=== PATIENT | female | born 1960 | race Caucasian/White ===

== ENCOUNTER 2018-04-09 01:41 | Inpatient (IN) ==
[2018-04-09] MEDS ORDERED: *HR* OxyCODONE/APAP 5/325 TABLET PO ONE (03:01)
[2018-04-09 03:43] LABS: Basophils # 0.1 K/mcL (0.0-0.2); Basophils % 0.6 %; Eosinophils # 0.1 K/mcL (0.0-0.6); Eosinophils % 0.8 %; Hematocrit 37.4 % (35.3-44.9); Hemoglobin 12.3 g/dL (11.5-15.4); Immature Granulocytes % 0.8 % (0-4); Lymphocytes # 0.7 K/mcL (0.6-4.6); Lymphocytes % 6.4 %; Mean Corpuscular HGB Conc 32.9 g/dL (31.6-35.5); Mean Corpuscular Hemoglobin 31.9 pg (28.0-33.3); Mean Corpuscular Volume 96.9 fL (83.0-100.0); Mean Platelet Volume 10.8 fL (9.4-12.4); Monocytes # 0.7 K/mcL (0.0-1.3); Monocytes % 5.7 %; Neutrophils # 9.9 K/mcL (1.6-8.9); Platelet Count 179 K/mcL (140-400); Red Blood Count 3.86 M/mcL (3.82-4.97); Red Cell Distribution Width 14.6 % (11.5-14.5); Segmented Neutrophils % 85.7 %
--- NOTE | 2018-04-09 04:00 | Emergency Department Note ---
Disposition Clinical Impression: Frequent falls Femoral fracture Qualifiers: Encounter type: initial encounter Femur location: shaft Fracture type: closed Fracture morphology: comminuted Fracture alignment: displaced Laterality: right Qualified Code(s): S72.351A - Displaced comminuted fracture of shaft of right femur, initial encounter for closed fracture Disposition: Admitted As Inpatient Condition: Fair Fall HPI - General Chief Complaint: ED Fall Stated Complaint: fall right leg right knee pain Time Seen by Provider: 04/09/18 02:06 Source: patient, EMS Mode of arrival: EMS Limitations: no limitations Nursing Notes Reviewed: Yes Vital Signs Reviewed: Yes - History of Present Illness HPI Narrative: 57 year old female sent by ambulance for fall evaluation. pt was tripped and fell on her right knee from standing five hours ago. pt couldn't stand up or change the position ever since. She stayed on the floor for four hours before she got help. Pt complained of severe right knee and hip pain. Pt stated she couldn't move her right leg. Pt reported history of diabetes, obese, depression , fibromygia and frequently fall. Pt denied hit her head or loss of consciousness at this time. Not on blood thinner. Pt Subjective Complaint: fall Onset (ago): hour(s) (5) Fall From: standing Fall Witnessed: no Place Fall Occurred: home Loss of Consciousness: none Prolonged Down Time?: yes, hour(s) (4) Symptoms Prior to Fall: none Context: tripped/slipped Location of injury - extremities: Right: hip, knee Severity: severe Severity scale (1-10): 9 - Related Data Allergies Allergy/AdvReac Type Severity Reaction Status Date / Time Nefazodone [From Serzone] Allergy Rash Verified 12/09/16 14:49 Constitutional: Denies: fever, chills, weakness, weight change Eyes: Denies: eye pain, eye discharge, vision change ENT ED: Denies: ear pain, throat pain, dental pain, hearing loss, epistaxis, congestion, dysphagia Cardiovascular: Denies: chest pain, palpitations, dyspnea on exertion, edema, syncope Respiratory: Denies: cough, dyspnea, wheezes, hemoptysis, stridor Gastrointestinal: Denies: abdominal pain, nausea, vomiting, diarrhea, constipation, hematemesis, melena, hematochezia Genitourinary: Denies: dysuria, frequency, hematuria, discharge Musculoskeletal: Reports: arthralgia (right knee pain and right hip pain). Denies: back pain, neck pain, myalgia Integumentary: Denies: rash, abrasion, lesions Neurological: Denies: headache, weakness, numbness, paresthesias, confusion, abnormal gait, vertigo Psychiatric: Denies: anxiety, depression, suicidal thoughts, homicidal thoughts , auditory hallucinations, visual hallucinations Endocrine: Denies: fatigue Hematological/Lymphatic: Denies: easy bleeding, easy bruising Allergic/Immunologic: Denies: facial swelling, urticaria Fall PMH - Past Medical History Medical history: Reports: asthma, COPD, diabetes, fibromyalgia, hypertension, other Surgical history: Reports: appendectomy Psychiatric history: Reports: anxiety, depression - Social History Smoking Status: Former smoker Alcohol use: Reports: none Drug use: Reports: none Physical Exam - General Limitations: no limitations General appearance: alert, in no apparent distress - Head Head exam: atraumatic, normocephalic, normal inspection - Eye Eye exam: Present: normal appearance, PERRL, EOMI - ENT ENT exam: normal exam, normal oropharynx, mucous membranes moist - Neck Neck exam: Present: normal inspection, full ROM, trachea midline - Chest Chest inspection: Present: normal inspection, symmetric chest wall rise - Respiratory Respiratory exam: Present: normal lung sounds bilaterally - Cardiovascular Cardiovascular exam: Present: regular rate, normal rhythm, normal heart sounds - Abdominal Exam Abdominal exam: Present: soft, Non-Tender. Absent: tenderness, distention, guarding, rebound, rigidity - Extremities Exam Extremities exam: Present: tenderness. Absent: pedal edema - Expanded Lower Extremity Exam Hip/Pelvis exam: Present: normal inspection, tenderness. Absent: full ROM, swelling Knee exam: Present: tenderness, swelling (right leg shorter than left knee, right knee swelling, limited of ROM, tender to palpation. right hip tender to palpation, no neurovascular deficit in right foot). Absent: normal inspection, full ROM Neurovascular/Tendon exam: Present: normal capillary refill. Absent: pulse deficit, motor deficit, sensory deficit, tendon deficit - Back Exam Back exam: Present: normal inspection, full ROM. Absent: tenderness - Neurological Exam Neurological exam: Present: alert, oriented X3 - Psychiatric Psychiatric exam: Present: normal affect, normal mood Course Vital Signs Temperature 99.0 F 04/09/18 01:46 Pulse Rate 77 04/09/18 01:46 Respiratory Rate 20 04/09/18 01:46 Blood Pressure 164/78 04/09/18 01:46 O2 Sat by Pulse Oximetry 100 04/09/18 01:46 Temperature 98.7 F 04/09/18 06:56 Pulse Rate 81 04/09/18 06:56 Respiratory Rate 16 04/09/18 06:56 Blood Pressure 130/75 04/09/18 06:56 O2 Sat by Pulse Oximetry 100 04/09/18 06:56 Oxygen Delivery Oxygen Delivery Room Air Fall - [facility] Narrative Medical decision making narrative: 57 year old female with history of frequently fall 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 pt stayed on the floor for 4 hours before got help. Physical exam: right knee deformity, right leg shorter than left leg, right knee swelling, limited of ROM, tender to palpation; lateral side right hip tender to palpation. no neurovascular deficit on right foot. Xray indicated distal femoral fracture with displaced. No hip or pelvic frature. Negative chest xray. Spoke with Dr. Silva. He suggested to admit the patient to hospital , and he will see the pt in the morning. Pt will be admitted with NPO. Dr. Pittman saw the patient and agrees the above plan. Spoke with Dr. Whitehead in the phone, pt is accepted. - Lab Data Result diagrams: 04/09/18 03:32 04/09/18 03:32 Lab Results 04/09/18 04/09/18 04/09/18 Range/Units 03:32 03:32 04:02 WBC 11.5 H (4.3-11.1) K/mcL RBC 3.86 (3.82-4.97) M/mcL Hgb 12.3 (11.5-15.4) g/dL Hct 37.4 (35.3-44.9) % MCV 96.9 (83.0-100.0) fL MCH 31.9 (28.0-33.3) pg MCHC 32.9 (31.6-35.5) g/dL RDW 14.6 H (11.5-14.5) % Plt Count 179 (140-400) K/mcL MPV 10.8 (9.4-12.4) fL Immature Gran % 0.8 (0-4) % Seg Neutrophils % 85.7 % Lymphocytes % 6.4 % Monocytes % 5.7 % Eosinophils % 0.8 % Basophils % 0.6 % Neutrophils # 9.9 H (1.6-8.9) K/mcL Lymphocytes # 0.7 (0.6-4.6) K/mcL Monocytes # 0.7 (0.0-1.3) K/mcL Eosinophils # 0.1 (0.0-0.6) K/mcL Basophils # 0.1 (0.0-0.2) K/mcL Sodium 139 (136-145) mEq/L Potassium 4.2 (3.5-5.1) mEq/L Chloride 111 H (98-107) mEq/L Carbon Dioxide 22 L (23-29) mEq/L BUN 31 H (6-20) mg/dL Creatinine 1.00 (0.60-1.20) mg/dL Est GFR ( Amer) > 60 (> 60) Est GFR (Non-Af Amer) 57 L (> 60) BUN/Creatinine Ratio 31 H (6-26) Glucose 161 H (70-105) mg/dL Calculated Osmolality 298 (280-300) Calcium 8.9 (8.6-10.3) mg/dL Total Bilirubin 0.4 (0.3-1.0) mg/dL AST 15 (13-39) Units/L ALT 11 (7-52) Units/L Alkaline Phosphatase 73 (34-104) Units/L Creatine Kinase 174 (30-223) Units/L Serum Total Protein 7.4 (6.4-8.9) g/dL Albumin 4.0 (3.5-5.7) g/dL Globulin 3.4 (2.4-3.5) g/dL Albumin/Globulin Ratio 1.2 (1.1-2.2) Urine Color Yellow (Yellow) Urine Clarity Clear (Clear) Urine pH 7.0 (5.0-8.0) pH Units Ur Specific [place] 1.018 (1.010-1.025) Urine Protein Negative (Neg-Trace) mg/dL Urine Glucose (UA) Normal (Normal) mg/dL Urine Ketones Negative (Negative) mg/dL Urine Blood Negative (Negative) Urine Nitrite Negative (Negative) Urine Bilirubin Negative (Negative) Urine Urobilinogen Normal (Normal) mg/dL Ur Leukocyte Esterase Small H (Negative) Urine Microscopic RBC 0-3 (0-3) per hpf Urine Microscopic WBC 5-15 H (0-3) per hpf Ur Squamous Epith Cells Many H (None-Few) per lpf Urine Bacteria None Seen (None-Few) per hpf Hyaline Casts None Seen (None-Few) per lpf Ur Culture Indicated? NO. A (NO) - Radiology Data Radiology results reviewed: Yes I reviewed the patient's radiology results. FINDINGS: Comminuted displaced distal femoral metadiaphyseal fracture with overlapping segments. Osteoarthrosis of the knee. Generalized soft tissue prominence about the leg. XR/XR knee RT limited 1-2V IMPRESSION: Comminuted displaced distal femoral metadiaphyseal fracture. Tricompartmental osteoarthrosis. D/ / Eduardo Henriquez / Eduardo Henriquze Interpreting Provider: Eduardo Henriquez - EKG Data EKG attestation: Yes I reviewed and interpreted this EKG. EKG shows normal: sinus rhythm Rate: normal Voltage: decreased voltage throughout Interpretation: no acute changes
[2018-04-09 04:09] LABS: Alanine Aminotransferase 11 Units/L (7-52); Albumin/Globulin Ratio 1.2 (1.1-2.2); Alkaline Phosphatase 73 Units/L (34-104); Aspartate Amino Transferase 15 Units/L (13-39); BUN/Creatinine Ratio 31 (6-26); Bilirubin,Total 0.4 mg/dL (0.3-1.0); Blood Urea Nitrogen 31 mg/dL (6-20); Calcium 8.9 mg/dL (8.6-10.3); Carbon Dioxide 22 mEq/L (23-29); Chloride 111 mEq/L (98-107); Creatine Kinase 174 Units/L (30-223); Globulin 3.4 g/dL (2.4-3.5); Glucose 161 mg/dL (70-105); Osmolality,Calculated 298 (280-300); Potassium 4.2 mEq/L (3.5-5.1); Sodium 139 mEq/L (136-145); Total Protein 7.4 g/dL (6.4-8.9); eGFR For Non-African Americans 57 (> 60)
[2018-04-09 04:15] LABS: Bilirubin,Urine Negative (Negative); Blood,Urine Negative (Negative); Clarity,Urine Clear (Clear); Color,Urine Yellow (Yellow); Glucose,Urine (UA) Normal (Normal); Ketones,Urine Negative (Negative); Leukocyte Esterase,Urine Small (Negative); Nitrite,Urine Negative (Negative); Protein,Urine Negative (Neg-Trace); Specific Gravity,Urine 1.018 (1.010-1.025); Urobilinogen,Urine Normal (Normal)
[2018-04-09 04:16] LABS: Bacteria,Urine None Seen per hpf (None-Few); Hyaline Casts,Urine None Seen per lpf (None-Few); RBC,Urine 0-3 per hpf (0-3); Squamous Epithelial Cell,Urine Many per lpf (None-Few)
[2018-04-09] MEDS ORDERED: OXYCODONE Oral CONC 10 MG/0.5 ML ORAL.SYG SL PRN (05:37)
[2018-04-09] MEDS ORDERED: Naloxone 0.4 MG/ML INJ IVP PRN (05:37)
[2018-04-09] MEDS ORDERED: Dextrose Gel 15 GM/37.5 ML TUBE PO PRN ×2 (05:39)
[2018-04-09] MEDS ORDERED: *HR* Dextrose 50 % in Water (Syg) 50 ML SYRINGE IVP PRN (05:39)
[2018-04-09] MEDS ORDERED: D5% in Water 1,000 ML IVC PRN (05:39)
--- NOTE | 2018-04-09 05:44 | Internal Med History&Physical ---
<Thomas Russo - Last Filed: 04/09/18 05:41> Date of Encounter: 04/09/18 Time of Encounter: 05:41 Internal Medicine - H&P: HPI Chief complaint: fall Admitted From: Home Plans for Post Hospital Care: Transfer [facility] History of present illness: Ms. Lula Villafana is a 57 year old female presented chief complaint of fall. Patient was walking towards her living room from the kitchen, feeding her cats, when she tripped and fell on her right knee recently resulted in severe pain in her right hip and knee. Patient denied passing out, head trauma, presyncope, dizziness. She reports after she fell she cannot get herself to get back up because of the pain she also cannot crawl. Patient was down on the ground for 4 hours. During this time patient did have her cell phone on her but thought that they might have been broken secondary to the fall. However when she checked her problem actually worked and she called for help. Patient was found to have a comminuted displaced distal femoral metadiaphyseal fracture. Orthopedics was called and will see patient in morning. Patient has a history of falls but has never had a fracture in the past. She usually uses a walker/ wheelchair outside or cane at home. Past Med Surg Social Fam HX - Past Medical History Medical history: asthma, COPD, diabetes, fibromyalgia, hypertension, other Psychiatric history: anxiety, depression - Past Surgical History Surgical History: appendectomy - Social History Smoking Status: Former smoker Smokeless Tobacco Status: No Alcohol use: none Drug use: none - Family History Father Hx Family Endocrine Disorder: Yes Internal Medicine - H&P: Meds 3 Allergy/AdvReac Type Severity Reaction Status Date / Time Nefazodone [From Serzone] Allergy Rash Verified 12/09/16 14:49 All Systems PM: A 10-system review of systems was performed and is negative for pertinent findings except as documented above in the HPI. Review of systems: Constitutional: Denies fever, chills HEENT: Denies headache, trauma, blurry vision, eye discharge, ear pain, ear discharge neck pain, sore throat, rhinorrhea Heart: Denies chest pain palpitations, LE edema Lungs: Denies shortness of breath cough Abdomen: Denies abdominal pain nausea vomiting diarrhea MSK: Reports fall, right knee, right hip pain Kidney: Denies dysuria, hematuria Skin: Denies rash, ulcers Neuro: Denies numbness and tingling Psych: denies axniety, depression - Constitutional Vitals: Temp Pulse Resp BP Pulse Ox 99.0 F 77 14 140/59 100 04/09/18 01:46 04/09/18 01:46 04/09/18 04:43 04/09/18 04:43 04/09/18 01:46 Exam: General: pleasant, without distress HEENT: Head atraumatic, normocephalic, EOMI, PERRL, absent ear discharge or trauma, Moist Mucous Membranes, uvula midline Neck: nontender to palpation, absent lymphadenopathy, Cardiovascualr: Regular rate and rhythm with no murmur, absent gallops or rubs, bilateral 1+ pedal edema, radial pulses 2 out of 4 Lungs: Clear to auscultation bilaterally, not in respiratory distress Abdomen: Soft nontender, nondistended positive bowel sounds, absent hepatomegaly Skin: warm and dry, absent rash, absent open wounds and nodules MSK: Right lower extremity externally rotated, short. pain with palpation of right knee. absent joint swelling. Neuro: Cranial nerves II through XII intact, UE and LE sensation equal bilaterally, alert oriented 3, Psych: good insight and judgment, anxious, depressed Internal Med - H&P Results - Labs CBC & Chem 7: 04/09/18 03:32 04/09/18 03:32 - Assessment and plan (1) Femoral fracture Current Visit: Yes Status: Acute Assessment and plan: 57 y/o female presents with fall xray knee/hip shows: Comminuted displaced distal femoral metadiaphyseal fracture. chest x-ray negative ortho consulted npo pain control Qualifiers: Encounter type: initial encounter Femur location: shaft Fracture type: closed Fracture morphology: comminuted Fracture alignment: displaced Laterality: right Qualified Code(s): S72.351A - Displaced comminuted fracture of shaft of right femur, initial encounter for closed fracture (2) Diabetes mellitus Current Visit: Yes Status: Chronic Assessment and plan: hx of DM2 non-insulin dependent A1c 5.5 Q6h accuchecks low dose SSI Qualifiers: Diabetes mellitus type: type 2 Diabetes mellitus fitter tacker insulin use: without fitter tacker use Diabetes mellitus complication status: without complication Qualified Code(s): E11.9 - Type 2 diabetes mellitus without complications (3) DVT prophylaxis Current Visit: Yes Status: Acute Assessment and plan: heparin SQ (4) Hx of essential hypertension Current Visit: Yes Status: Acute Assessment and plan: hx of HTN controlled currently meds not reconciled, so this will need to be done before starting home meds - Time Spent With Patient Total time spent is greater than 50% in coordination of care (as documented) at patient's floor/unit and/or counseling patient: <AnilaJerry - Last Filed: 04/09/18 06:49> Date of Encounter: 04/09/18 Internal Medicine - H&P: HPI History of present illness: Ms. Lula Villafana is a 57 year old female All Systems PM: A 10-system review of systems was performed and is negative for pertinent findings except as documented above in the HPI. - Constitutional Vitals: Temp Pulse Resp BP Pulse Ox 99.0 F 77 14 140/59 100 04/09/18 01:46 04/09/18 01:46 04/09/18 04:43 04/09/18 04:43 04/09/18 01:46 Internal Med - H&P Results - Labs CBC & Chem 7: 04/09/18 03:32 04/09/18 03:32 - Assessment and plan (1) Femoral fracture Current Visit: Yes Status: Acute Qualifiers: Encounter type: initial encounter Femur location: shaft Fracture type: closed Fracture morphology: comminuted Fracture alignment: displaced Laterality: right Qualified Code(s): S72.351A - Displaced comminuted fracture of shaft of right femur, initial encounter for closed fracture (2) DVT prophylaxis Current Visit: Yes Status: Acute (3) Diabetes mellitus Current Visit: Yes Status: Chronic Qualifiers: Diabetes mellitus type: type 2 Diabetes mellitus fitter tacker insulin use: without fpc use Diabetes mellitus complication status: without complication Qualified Code(s): E11.9 - Type 2 diabetes mellitus without complications (4) Hx of essential hypertension Current Visit: Yes Status: Acute - Time Spent With Patient Total time spent is greater than 50% in coordination of care (as documented) at patient's floor/unit and/or counseling patient: - Attending Attestation Margaret Villafana is a 57 year old woman who presents after a fall at home and found to have a distal femoral fracture. Vital signs are within normal limits; she remains clinically and hemodynamically stable. Will keep NPO, ensure coags and type/screen are obtained, place orthopedics consult and administer pain control regimen. DVT prophylaxis indicated. Home meds to be resumed once verified. Insulin sliding scale for diabetes control during hospitalization.
[2018-04-09] MEDS ORDERED: Ondansetron ODT 4 MG TAB.RAPDIS SL PRN (06:47)
[2018-04-09] MEDS: Insulin LISPRO 300 UNITS/3 ML VIAL SQ SCH ×3 (07:38→16:27)
[2018-04-09] MEDS: *HR* Heparin 5,000 UNIT/ML VIAL SQ SCH ×3 (07:38→22:10)
--- NOTE | 2018-04-09 08:05 | Emergency Department Note ---
Disposition Clinical Impression: Frequent falls Femoral fracture Qualifiers: Encounter type: initial encounter Femur location: shaft Fracture type: closed Fracture morphology: comminuted Fracture alignment: displaced Laterality: right Qualified Code(s): S72.351A - Displaced comminuted fracture of shaft of right femur, initial encounter for closed fracture Disposition: Admitted As Inpatient Condition: Fair General Adult HPI - General Chief complaint: ED Fall Stated complaint: fall right leg right knee pain Time Seen by Provider: 04/09/18 02:06 Source: patient, EMS Mode of arrival: EMS Limitations: no limitations Nursing Notes Reviewed: Yes Vital Signs Reviewed: Yes - History of Present Illness Pain Scale: 7 - Related Data Allergies Allergy/AdvReac Type Severity Reaction Status Date / Time Nefazodone [From Serzone] Allergy Rash Verified 12/09/16 14:49 Constitutional: Denies: fever, chills, weakness, weight change Eyes: Denies: eye pain, eye discharge, vision change ENT ED: Denies: ear pain, throat pain, dental pain, hearing loss, epistaxis, congestion, dysphagia Cardiovascular: Denies: chest pain, palpitations, dyspnea on exertion, edema, syncope Respiratory: Denies: cough, dyspnea, wheezes, hemoptysis, stridor Gastrointestinal: Denies: abdominal pain, nausea, vomiting, diarrhea, constipation, hematemesis, melena, hematochezia Genitourinary: Denies: dysuria, frequency, hematuria, discharge Musculoskeletal: Reports: arthralgia (right knee pain and right hip pain). Denies: back pain, neck pain, myalgia Integumentary: Denies: rash, abrasion, lesions Neurological: Denies: headache, weakness, numbness, paresthesias, confusion, abnormal gait, vertigo Psychiatric: Denies: anxiety, depression, suicidal thoughts, homicidal thoughts , auditory hallucinations, visual hallucinations Endocrine: Denies: fatigue Hematological/Lymphatic: Denies: easy bleeding, easy bruising Allergic/Immunologic: Denies: facial swelling, urticaria Past Medical History - Past Medical History Medical history: Reports: asthma, COPD, diabetes, fibromyalgia, hypertension, other Surgical history: Reports: appendectomy Psychiatric history: Reports: anxiety, depression - Social History Smoking Status: Former smoker Smokeless Tobacco Status: No Alcohol use: Reports: none Drug use: Reports: none Physical Exam - General Limitations: no limitations General appearance: alert, in no apparent distress Course Vital Signs Temperature 99.0 F 04/09/18 01:46 Pulse Rate 77 04/09/18 01:46 Respiratory Rate 20 04/09/18 01:46 Blood Pressure 164/78 04/09/18 01:46 O2 Sat by Pulse Oximetry 100 04/09/18 01:46 Temperature 98.7 F 04/09/18 06:56 Pulse Rate 81 04/09/18 06:56 Respiratory Rate 16 04/09/18 06:56 Blood Pressure 130/75 04/09/18 06:56 O2 Sat by Pulse Oximetry 100 04/09/18 06:56 Oxygen Delivery Oxygen Delivery Room Air Medical Decision Making - Lab Data Lab results reviewed: Yes I reviewed the patient's lab results. Result diagrams: 04/09/18 03:32 04/09/18 03:32 Lab Results 04/09/18 04/09/18 04/09/18 Range/Units 03:32 03:32 04:02 WBC 11.5 H (4.3-11.1) K/mcL RBC 3.86 (3.82-4.97) M/mcL Hgb 12.3 (11.5-15.4) g/dL Hct 37.4 (35.3-44.9) % MCV 96.9 (83.0-100.0) fL MCH 31.9 (28.0-33.3) pg MCHC 32.9 (31.6-35.5) g/dL RDW 14.6 H (11.5-14.5) % Plt Count 179 (140-400) K/mcL MPV 10.8 (9.4-12.4) fL Immature Gran % 0.8 (0-4) % Seg Neutrophils % 85.7 % Lymphocytes % 6.4 % Monocytes % 5.7 % Eosinophils % 0.8 % Basophils % 0.6 % Neutrophils # 9.9 H (1.6-8.9) K/mcL Lymphocytes # 0.7 (0.6-4.6) K/mcL Monocytes # 0.7 (0.0-1.3) K/mcL Eosinophils # 0.1 (0.0-0.6) K/mcL Basophils # 0.1 (0.0-0.2) K/mcL Sodium 139 (136-145) mEq/L Potassium 4.2 (3.5-5.1) mEq/L Chloride 111 H (98-107) mEq/L Carbon Dioxide 22 L (23-29) mEq/L BUN 31 H (6-20) mg/dL Creatinine 1.00 (0.60-1.20) mg/dL Est GFR ( Amer) > 60 (> 60) Est GFR (Non-Af Amer) 57 L (> 60) BUN/Creatinine Ratio 31 H (6-26) Glucose 161 H (70-105) mg/dL Calculated Osmolality 298 (280-300) Calcium 8.9 (8.6-10.3) mg/dL Total Bilirubin 0.4 (0.3-1.0) mg/dL AST 15 (13-39) Units/L ALT 11 (7-52) Units/L Alkaline Phosphatase 73 (34-104) Units/L Creatine Kinase 174 (30-223) Units/L Serum Total Protein 7.4 (6.4-8.9) g/dL Albumin 4.0 (3.5-5.7) g/dL Globulin 3.4 (2.4-3.5) g/dL Albumin/Globulin Ratio 1.2 (1.1-2.2) Urine Color Yellow (Yellow) Urine Clarity Clear (Clear) Urine pH 7.0 (5.0-8.0) pH Units Ur Specific [place] 1.018 (1.010-1.025) Urine Protein Negative (Neg-Trace) mg/dL Urine Glucose (UA) Normal (Normal) mg/dL Urine Ketones Negative (Negative) mg/dL Urine Blood Negative (Negative) Urine Nitrite Negative (Negative) Urine Bilirubin Negative (Negative) Urine Urobilinogen Normal (Normal) mg/dL Ur Leukocyte Esterase Small H (Negative) Urine Microscopic RBC 0-3 (0-3) per hpf Urine Microscopic WBC 5-15 H (0-3) per hpf Ur Squamous Epith Cells Many H (None-Few) per lpf Urine Bacteria None Seen (None-Few) per hpf Hyaline Casts None Seen (None-Few) per lpf Ur Culture Indicated? NO. A (NO) - Radiology Data Radiology results reviewed: Yes I reviewed the patient's radiology results. Chest X-Ray 04/09/18 02:27 IMPRESSION: No acute findings. D/ / Eduardo Henriquez / Eduardo Henriquez Interpreting Provider: Eduardo Henriquez Hip X-Ray 04/09/18 02:27 IMPRESSION: No fracture or dislocation of the bilateral hips. Nondiagnostic lateral view due to overlapping structures. D/ / Eduardo Henriquez / Eduardo Henriquez Interpreting Provider: Eduardo Henriquez Knee X-Ray 04/09/18 02:27 IMPRESSION: Comminuted displaced distal femoral metadiaphyseal fracture. Tricompartmental osteoarthrosis. D/ / Eduardo Henriquez / Eduardo Henriquez Interpreting Provider: Eduardo Henriquez Attestation Statement - Attestation Attestation: I, Joshua Pittman MD, personally evaluated this patient and discussed their management with the midlevel provicer, PAC/SENIOR CONTROLLER. I reviewed the midlevel provider 's note and agree with the documented findings, medical decision making, and plan of care. 57-year-old morbidly obese female who lives alone presents to the emergency department by eminence after she lost her balance and fell onto her right knee at home several hours prior to arrival. Patient states she was unable to get up and was in the floor for about 4 hours before she was finally able to call for help. She complains of severe pain in the right knee and entire leg. She denies hitting her head. No loss of consciousness. No syncope. No other symptoms or complaints. On examination patient is a well-developed morbidly obese female in no acute distress. She is alert and oriented 3. There is no cyanosis or diaphoresis. Breath sounds are clear and equal bilaterally. Heart regular rate and rhythm. Abdomen soft and nontender with normal bowel sounds. There is swelling and diffuse tenderness about the right knee with limited range of motion secondary to pain. Neurovascular function intact distally. Labs reviewed. X-ray of the right knee shows a comminuted displaced fracture of the distal femur. Hip and pelvis was negative for fracture. Chest x-ray negative. Antwon Chung CNP, discussed the case with the orthopedist manager document control, Dr. Rutledge, and he will consult on the patient in the morning in the hospital. He recommended admission by the hospitalist. The hospitalist, Dr. Whitehead, was consulted and accepted admission of the patient.
--- NOTE | 2018-04-09 08:15 | Orthopedic Consult Note ---
Date of Encounter: 04/09/18 Time of Encounter: 08:15 Assessment and Plan (1) Femoral fracture Current Visit: Yes Status: Acute Patient has sustained a displaced Right Distal femur fracture from a mechanical fall at home. She lives independently. She admits to frequent falls. Sh uses a walker/cane outside of the home. She is morbidly obese, with peripheral neuropathy from DMII. XRAYS have been reviewed by myself and . Due to instability of fracture, pain, and patients independent status, it is recommended to proceed with surgical intervention. Plan: Right Distal Femur Replacement Thus04/10 with Risks versus benefits reviewed with patient and friend. Consent reviewed and signed. Continue with medical optimization prior to surgery. Start foot pumps. Doppler ordered to assess for DVT. STAT. D/C Heparin in AM. NPO after midnight. Continue with pain control. Will get immobilizer on patient for support and stability. Qualifiers: Encounter type: initial encounter Femur location: shaft Fracture type: closed Fracture morphology: comminuted Fracture alignment: displaced Laterality: right Qualified Code(s): S72.351A - Displaced comminuted fracture of shaft of right femur, initial encounter for closed fracture (2) Frequent falls Current Visit: Yes Status: Acute (3) Hx of essential hypertension Current Visit: Yes Status: Acute (4) Diabetes mellitus Current Visit: Yes Status: Chronic Qualifiers: Diabetes mellitus type: type 2 Diabetes mellitus custodial insulin use: without custodial use Diabetes mellitus complication status: without complication Qualified Code(s): E11.9 - Type 2 diabetes mellitus without complications (5) Non-pressure chronic ulcer of other part of right lower leg limited to breakdown of skin Current Visit: No Status: Acute History of Present Illness Chief complaint: Fall, Right Distal Femur Fracture HPI: Ms. Lula Villafana is a 57 year old female, 57 year old female presented to ED s/ p mechanical fall at home. She lives independently with her cats. Patient was walking towards her living room from the kitchen, feeding her cats, when she tripped and fell on her right knee, resulting in severe pain in her right hip and knee. Patient LOC, head trauma, dizziness or syncope. She reports after she fell she cannot get herself to get back up because of the pain she also cannot crawl. Patient was down on the ground for apprx 4 hours according to reports. Patient was found to have a comminuted displaced distal femoral metadiaphyseal fracture. Orthopedics consulted for surgical management. Patient has a history of multiple falls for unknown reason per patient, and denies previous fracture. She admits to peripheral neuropathy secondary to uncontrolled DM. She is morbidly obese. She usually uses a walker/wheelchair outside or cane at home. She admits to Numbness to bilateral lower extremities x years. She is unable to move knee secondary to discomfort. She admits to mild joint pain prior to surgery. Past Med Surg Social Fam HX - Past Medical History Medical history: asthma, COPD, diabetes, fibromyalgia, hypertension, other Psychiatric history: anxiety, depression - Past Surgical History Surgical History: appendectomy - Social History Smoking Status: Former smoker Smokeless Tobacco Status: No Alcohol use: none Drug use: none - Family History Father Hx Family Endocrine Disorder: Yes Medications and Allergies Albuterol Sulfate [Ventolin Hfa] 2 puff IH Q4H PRN 04/09/18 [History] Allopurinol [Zyloprim] 300 mg PO DAILY 04/09/18 [History] Atorvastatin [Lipitor] 40 mg PO HS 04/09/18 [History] Bimatoprost [Lumigan] 1 drop OP QPM 04/09/18 [History] BuPROPion SR (12 HR) [Wellbutrin SR] 150 mg PO BID 04/09/18 [History] Chlorthalidone 50 mg PO QAM 04/09/18 [History] Cholecalciferol (D-3) [Vitamin D] 5,000 unit PO DAILY 04/09/18 [History] Cyclosporine [Restasis] 1 drop BOTH EYES BID 04/09/18 [History] Fluticasone/Salmeterol [Advair 250-50 Diskus] 1 puff IH BID 04/09/18 [History] HYDROcodone/Acet 7.5/325 mg [[place] 7.5-325 mg] 1 tab PO Q6H PRN 04/09/18 [ History] Levothyroxine Sodium [Levoxyl] 88 mcg PO DAILY 04/09/18 [History] Linaclotide [Linzess] 290 mcg PO DAILY 04/09/18 [History] Metoprolol [Lopressor] 50 mg PO BID 04/09/18 [History] Mirabegron [Myrbetriq] 50 mg PO DAILY 04/09/18 [History] Mirtazapine [Remeron] 15 mg PO HS 04/09/18 [History] Montelukast [Singulair] 10 mg PO DAILY 04/09/18 [History] Nabumetone 750 mg PO BID 04/09/18 [History] Nitroglycerin [Nitrostat] 0.4 mg SL Q5M PRN 04/09/18 [History] Nortriptyline HCl 150 mg PO DAILY 04/09/18 [History] Pantoprazole Sodium [Protonix] 40 mg PO DAILY 04/09/18 [History] Pioglitazone HCl [Actos] 30 mg PO DAILY 04/09/18 [History] Potassium Chloride [Klor-Con 10] 10 meq PO DAILY 04/09/18 [History] Pregabalin [Lyrica] 200 mg PO BID 04/09/18 [History] SUMAtriptan Succinate [Imitrex] 100 mg PO Q2H PRN 04/09/18 [History] SitaGLIPtin [Januvia] 100 mg PO DAILY 04/09/18 [History] Timolol Maleate 0.5% [Timolol Maleate 0.5%] 1 drop OP BID 04/09/18 [History] Tizanidine HCl 8 mg PO TID PRN 04/09/18 [History] Topiramate [Topamax] 200 mg PO BID 04/09/18 [History] hydrOXYzine HCl [Hydroxyzine HCl] 50 mg PO Q8H PRN 04/09/18 [History] rOPINIRole [Requip] 1 mg PO HS 04/09/18 [History] 3 Allergy/AdvReac Type Severity Reaction Status Date / Time Nefazodone [From Serzone] Allergy Rash Verified 12/09/16 14:49 All Systems Reviewed: The remainder of the systems were reviewed and are negative - Constitutional Constitutional: as per HPI, frequent falls, no fever(s), no weakness, no weight gain - Cardiovascular Cardiovascular: no chest pain, no syncope - Respiratory Respiratory: no cough, no dyspnea on exertion - Musculoskeletal Musculoskeletal: as per HPI, abnormal gait, joint swelling, limited range of motion, numbness, radiating pain into limb, tingling Physical Exam - Constitutional Vitals: Temp Pulse Resp BP Pulse Ox 98.7 F 81 16 130/75 100 04/09/18 06:56 04/09/18 06:56 04/09/18 06:56 04/09/18 06:56 04/09/18 06:56 General appearance IM: mild distress, A&O X 3, answers questions appropriately Exam: +Calf erythema and tenderness - Fracture right femur Location of fracture: Right Distal femur Appearance: swelling, valgus angulation Open wound: No Compartments: soft Distal extremity neurovascularly intact: Yes (Peripheral neuropathy noted) Proximal joint involvement: No Distal joint involvement: No Other injury: muscle injury: no, tendon injury: no, ligament injury: no, vascular injury: no, nerve injury: no Results - Labs Result Diagrams: 04/09/18 03:32 04/09/18 03:32 Labs: Abnormal lab results WBC 11.5 K/mcL (4.3-11.1) H 04/09/18 03:32 RDW 14.6 % (11.5-14.5) H 04/09/18 03:32 Neutrophils # 9.9 K/mcL (1.6-8.9) H 04/09/18 03:32 Chloride 111 mEq/L (98-107) H 04/09/18 03:32 Carbon Dioxide 22 mEq/L (23-29) L 04/09/18 03:32 BUN 31 mg/dL (6-20) H 04/09/18 03:32 Est GFR (Non-Af Amer) 57 (> 60) L 04/09/18 03:32 BUN/Creatinine Ratio 31 (6-26) H 04/09/18 03:32 Glucose 161 mg/dL (70-105) H 04/09/18 03:32 Ur Leukocyte Esterase Small (Negative) H 04/09/18 04:02 Urine Microscopic WBC 5-15 per hpf (0-3) H 04/09/18 04:02 Ur Squamous Epith Cells Many per lpf (None-Few) H 04/09/18 04:02 Ur Culture Indicated? NO. (NO) A 04/09/18 04:02 All other labs normal. - Diagnostic results Knee x-ray: report reviewed, image reviewed Consult Discharge Plan - Plan Referrals: Darek Teresa MD [Primary Care Provider] -
[2018-04-09] MEDS: OXYCODONE Oral CONC 10 MG/0.5 ML ORAL.SYG SL PRN ×3 (09:42→22:44)
[2018-04-09] MEDS ORDERED: tiZANidine 4 MG TABLET PO PRN (12:33)
[2018-04-09] MEDS ORDERED: SUMAtriptan succinate 50 MG TABLET PO PRN (12:33)
[2018-04-09] MEDS ORDERED: hydrOXYzine pamoate 25 MG CAPSULE PO PRN (12:33)
[2018-04-09] MEDS ORDERED: Nitroglycerin 0.4 MG TAB.SUBL SL PRN (12:33)
[2018-04-09] MEDS ORDERED: *HR* HYDROcodone/Acet 7.5/325 mg TABLET PO PRN (12:33)
[2018-04-09] MEDS ORDERED: (Mirabegron [Myrbetriq] 50 MG) PO SCH (12:45)
[2018-04-09] MEDS: rOPINIRole 1 MG TABLET PO SCH ×2 (14:07→22:06)
--- NOTE | 2018-04-09 14:49 | Event Note ---
Date of Encounter: 04/09/18 Time of Encounter: 09:00 Patient is seen and examined. Complain right leg pain due to fracture, can be controlled by pain medications. Stable vitals. Unremarkable lab results. Home medication verified and order place. Appreciate orthopedic consult. Plan for surgery tomorrow.
[2018-04-09] MEDS: *HR* SitaGLIPtin 100 MG TABLET PO SCH (16:16)
[2018-04-09] MEDS: *HR* Pioglitazone 30 MG TABLET PO SCH (16:16)
--- NOTE | 2018-04-09 17:36 | Electrocardiograph Report ---
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
--- NOTE | 2018-04-09 17:37 | Electrocardiograph Report ---
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
[2018-04-09] MEDS ORDERED: Latanoprost 2.5 ML BOTTLE BOTH EYES SCH ×2 (18:00→21:00)
[2018-04-09] MEDS: Budesonide/Formoterol 80/4.5 MDI IH SCH (20:09)
[2018-04-09] MEDS ORDERED: Mirtazapine 15 MG TABLET PO SCH (21:00)
[2018-04-09] MEDS ORDERED: rOPINIRole 1 MG TABLET PO SCH (21:00)
[2018-04-09] MEDS: Topiramate 100 MG TABLET PO SCH (22:05)
[2018-04-09] MEDS: BuPROPion SR (12 HR) 150 MG TABLET PO SCH (22:05)
[2018-04-09] MEDS: Pregabalin 50 MG CAPSULE PO SCH (22:06)
[2018-04-09] MEDS: (Cyclosporine [Restasis] 1 DROP) OP SCH (22:24)
[2018-04-09] MEDS ORDERED: (Diclofenac Sodium [Voltaren] 100 GM) TP PRN (23:53)
--- NOTE | 2018-04-10 00:11 | Anesthesia Evaluation PreOp ---
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: Other (fibromyalgia, anxiety, depression) Other Medical History: Diabetes Type II, Other (morbid obesity BMI 44) Anesthesia History: No Prior Anesthetic Complications, Past Anesthesia ( appendectomy) Alcohol Use: none Drug use: none Medications and Allergies Albuterol Sulfate [Ventolin Hfa] 2 puff IH Q4H PRN 04/09/18 [History] Allopurinol [Zyloprim] 300 mg PO DAILY 04/09/18 [History] Atorvastatin [Lipitor] 40 mg PO HS 04/09/18 [History] Bimatoprost [Lumigan] 1 drop OP QPM 04/09/18 [History] BuPROPion SR (12 HR) [Wellbutrin SR] 150 mg PO BID 04/09/18 [History] Chlorthalidone 50 mg PO QAM 04/09/18 [History] Cholecalciferol (D-3) [Vitamin D] 5,000 unit PO DAILY 04/09/18 [History] Cyclosporine [Restasis] 1 drop BOTH EYES BID 04/09/18 [History] Diclofenac Sodium [Voltaren] 100 gm TP PRN PRN 04/09/18 [History] Fluticasone/Salmeterol [Advair 250-50 Diskus] 1 puff IH BID 04/09/18 [History] HYDROcodone/Acet 7.5/325 mg [[place] 7.5-325 mg] 1 tab PO Q6H PRN 04/09/18 [ History] Levothyroxine Sodium [Levoxyl] 88 mcg PO DAILY 04/09/18 [History] Linaclotide [Linzess] 290 mcg PO DAILY 04/09/18 [History] Metoprolol [Lopressor] 50 mg PO BID 04/09/18 [History] Mirabegron [Myrbetriq] 50 mg PO DAILY 04/09/18 [History] Mirtazapine [Remeron] 15 mg PO HS 04/09/18 [History] Montelukast [Singulair] 10 mg PO DAILY 04/09/18 [History] Nabumetone 750 mg PO BID 04/09/18 [History] Nitroglycerin [Nitrostat] 0.4 mg SL Q5M PRN 04/09/18 [History] Nortriptyline HCl 150 mg PO DAILY 04/09/18 [History] Pantoprazole Sodium [Protonix] 40 mg PO DAILY 04/09/18 [History] Pioglitazone HCl [Actos] 30 mg PO DAILY 04/09/18 [History] Potassium Chloride [Klor-Con 10] 10 meq PO DAILY 04/09/18 [History] Pregabalin [Lyrica] 200 mg PO BID 04/09/18 [History] SUMAtriptan Succinate [Imitrex] 100 mg PO Q2H PRN 04/09/18 [History] SitaGLIPtin [Januvia] 100 mg PO DAILY 04/09/18 [History] Timolol Maleate 0.5% [Timolol Maleate 0.5%] 1 drop OP BID 04/09/18 [History] Tizanidine HCl 8 mg PO TID PRN 04/09/18 [History] Topiramate [Topamax] 200 mg PO BID 04/09/18 [History] hydrOXYzine HCl [Hydroxyzine HCl] 50 mg PO Q8H PRN 04/09/18 [History] rOPINIRole [Requip] 1 mg PO HS 04/09/18 [History] 3 Allergy/AdvReac Type Severity Reaction Status Date / Time Nefazodone [From Serzone] Allergy Rash Verified 12/09/16 14:49 - Meds/Allergy Pre-op Review Medications Reviewed: Yes Allergies Reviewed: Yes Beta Blockers on Current Med List: No Anesthesia Results - Labs 04/09/18 03:32 04/09/18 03:32 - Imaging EKG: report reviewed (Sinus rhythm Low voltage, precordial leads Nonspecific ST- T changes Electronically Signed On 04-09-2018 17:35:06 EDT by Alfred Parsons) Additional studies: ECHO 05/2017 Impressions: LVEF 60%. Normal LV chamber size, wall thickness and function. Moderate left ventricular diastolic dysfunction. Normal right ventricular structure and function. Moderately dilated left atrium. Mild tricuspid regurgitation. Mild pulmonary hypertension. Estimated RVSP is 43 mmHg. Nuclear stress 2017: EF 75% negative for ischemia or infarct Anesthesia Exam Vital Signs/O2 Sat, Most Current Temp Pulse Resp BP Pulse Ox 98.8 F 90 18 125/76 95 04/09/18 21:56 04/09/18 21:56 04/09/18 21:56 04/09/18 21:56 04/09/18 21:56 Weight: 122kg Anesthesia Assess/Plan ASA Score: 3 Modified Anu Scale for Level of Consciousness: Cooperative, oriented, and tranquil Anesthetic Plan: General Monitoring Plan: Standard Monitors Recovery Plan: PACU <NicholeLucy A - Last Filed: 04/10/18 15:55> Date of Encounter: 04/10/18 Time of Encounter: 16:50 - Past History Cardiac History: HTN Pulmonary History: Former smoker, COPD, Other (On O2 from the inpatient unit. 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 Other Medical History: Diabetes Type II, Other Anesthesia History: No Prior Anesthetic Complications, Past Anesthesia Alcohol Use: none Drug use: none - Meds/Allergy Pre-op Review Medications Reviewed: Yes Allergies Reviewed: Yes Beta Blockers on Current Med List: No Anesthesia Results - Labs 04/10/18 00:58 04/10/18 00:58 - Imaging EKG: report reviewed Anesthesia Exam Selected Entries 04/10/18 14:15 04/10/18 15:40 Temperature 98.2 F Pulse Rate 66 Respiratory Rate 16 Blood Pressure 98/72 O2 Sat by Pulse Oximetry 100 NPO (# of Hours): over 8 hours - HEENT Pupil (Motor): Pupils equal Teeth: Edentulous Oral Opening: Greater than 3 - LEARN TO SWIM INSTRUCTOR LOC: Oriented (Patient sedated but responsive, appropriate.) - Cardiac Rhythm: Regular Murmur: None - Pulmonary Breath Sounds: bilateral Clear Respiratory Effort: Symmetrical Anesthesia Assess/Plan ASA Score: 3 Modified Anu Scale for Level of Consciousness: Cooperative, oriented, and tranquil Anesthetic Plan: General, Regional Monitoring Plan: Standard Monitors Recovery Plan: PACU (Discussed GA, regional nerve block. Agreed to proceed.)
[2018-04-10] MEDS: Insulin LISPRO 300 UNITS/3 ML VIAL SQ SCH ×3 (01:29→14:10)
[2018-04-10 01:38] LABS: Basophils % 0.5 %; Eosinophils # 0.1 K/mcL (0.0-0.6); Eosinophils % 2.1 %; Hematocrit 31.3 % (35.3-44.9); Immature Granulocytes % 0.5 % (0-4); Lymphocytes # 1.2 K/mcL (0.6-4.6); Lymphocytes % 19.9 %; Mean Corpuscular HGB Conc 31.6 g/dL (31.6-35.5); Mean Corpuscular Hemoglobin 30.6 pg (28.0-33.3); Mean Corpuscular Volume 96.6 fL (83.0-100.0); Mean Platelet Volume 10.6 fL (9.4-12.4); Monocytes # 0.6 K/mcL (0.0-1.3); Neutrophils # 4.2 K/mcL (1.6-8.9); Platelet Count 145 K/mcL (140-400); Red Blood Count 3.24 M/mcL (3.82-4.97); Red Cell Distribution Width 14.9 % (11.5-14.5)
[2018-04-10 01:40] LABS: Hemoglobin 9.9 g/dL (11.5-15.4)
[2018-04-10 01:43] LABS: BUN/Creatinine Ratio 23 (6-26); Blood Urea Nitrogen 25 mg/dL (6-20); Calcium 8.9 mg/dL (8.6-10.3); Carbon Dioxide 26 mEq/L (23-29); Chloride 109 mEq/L (98-107); Glucose 132 mg/dL (70-105); Osmolality,Calculated 294 (280-300); Sodium 139 mEq/L (136-145); eGFR For Non-African Americans 52 (> 60)
[2018-04-10] MEDS: OXYCODONE Oral CONC 10 MG/0.5 ML ORAL.SYG SL PRN ×2 (04:28→10:49)
[2018-04-10] MEDS: *HR* Heparin 5,000 UNIT/ML VIAL SQ SCH ×2 (06:25→14:11)
--- NOTE | 2018-04-10 08:16 | Orthopedics Progress Note ---
Date of Encounter: 04/10/18 Time of Encounter: 08:15 Subjective Interval history: Patient seen this morning with a displaced right distal femur fracture with associated right arthritis. Recommended plan based on quality of bone and fracture pattern is distal femoral replacement. We reviewed the risks and benefits as well as recovery. All questions were answered. The patient agreed to this treatment plan and appeared to understand the plan is reviewed. Objective Vital signs: Vital Signs Temp Pulse Resp BP Pulse Ox 04/10/18 07:45 98.8 F 67 16 118/79 94 04/10/18 04:37 97.3 F L 102 16 117/73 94 04/10/18 01:21 98.3 F 04/10/18 01:14 17 100 04/10/18 00:43 100.1 F H 66 16 116/72 98 04/09/18 21:56 98.8 F 90 18 125/76 95 04/09/18 20:09 18 95 04/09/18 12:19 98.3 F 74 16 121/65 96 Intake and Output 04/09/18 04/10/18 04/10/18 23:59 07:59 15:59 Output Total 2099 1100 / 1100 Balance -2100 / -2100 -1100 / -1100 Output: Catheter 2099 / 2099 1100 / 1100 Other: Weight 105.2 kg Blood Glucose* 131 126 Patient Weight 04/10/18 23:59 Weight 105.2 kg - Labs CBC & BMP: 04/10/18 00:58 04/10/18 00:58 Labs: Abnormal lab results RBC 3.24 M/mcL (3.82-4.97) L 04/10/18 00:58 Hgb 9.9 g/dL (11.5-15.4) L D 04/10/18 00:58 Hct 31.3 % (35.3-44.9) L 04/10/18 00:58 RDW 14.9 % (11.5-14.5) H 04/10/18 00:58 Chloride 109 mEq/L (98-107) H 04/10/18 00:58 BUN 25 mg/dL (6-20) H 04/10/18 00:58 Est GFR (Non-Af Amer) 52 (> 60) L 04/10/18 00:58 Glucose 132 mg/dL (70-105) H 04/10/18 00:58 POC Glucose 131 mg/dL (70-99) H 04/09/18 21:59 Ur Leukocyte Esterase Small (Negative) H 04/09/18 04:02 Urine Microscopic WBC 5-15 per hpf (0-3) H 04/09/18 04:02 Ur Squamous Epith Cells Many per lpf (None-Few) H 04/09/18 04:02 Ur Culture Indicated? NO. (NO) A 04/09/18 04:02 Consult Discharge Plan - Plan Referrals: Darek Teresa MD [Primary Care Provider] -
[2018-04-10] MEDS: Budesonide/Formoterol 80/4.5 MDI IH SCH ×2 (08:17→20:18)
[2018-04-10] MEDS ORDERED: (Mirabegron [Myrbetriq] 50 MG) PO SCH (09:00)
[2018-04-10] MEDS ORDERED: (Linaclotide [Linzess] 290 MCG) PO SCH (09:00)
[2018-04-10] MEDS ORDERED: Cholecalciferol (D-3) 1,000 UNIT TABLET PO SCH (09:00)
[2018-04-10] MEDS: BuPROPion SR (12 HR) 150 MG TABLET PO SCH (10:05)
[2018-04-10] MEDS: *HR* SitaGLIPtin 100 MG TABLET PO SCH (10:06)
[2018-04-10] MEDS: Pregabalin 50 MG CAPSULE PO SCH (10:07)
[2018-04-10] MEDS: Topiramate 100 MG TABLET PO SCH (10:07)
[2018-04-10] MEDS: (Cyclosporine [Restasis] 1 DROP) OP SCH (10:10)
[2018-04-10] MEDS: *HR* Pioglitazone 30 MG TABLET PO SCH (10:40)
--- NOTE | 2018-04-10 14:02 | Internal Med Progress Note ---
Hospitalist Progress Note - Encounter Date of Encounter: 04/10/18 Time of Encounter: 09:00 - Subjective Interval History: Patient is sleeping when I saw her. She wake up and denies leg pain. Denies fever or shortness of breath - Exam Vitals: Temp Pulse Resp BP Pulse Ox 98.8 F 67 18 118/79 94 04/10/18 07:45 04/10/18 07:45 04/10/18 08:19 04/10/18 07:45 04/10/18 11:09 Exam: General: pleasant, without distress HEENT: Head atraumatic, normocephalic, EOMI, PERRL, absent ear discharge or trauma, Moist Mucous Membranes, uvula midline Neck: nontender to palpation, absent lymphadenopathy, Cardiovascualr: Regular rate and rhythm with no murmur, absent gallops or rubs, bilateral 1+ pedal edema, radial pulses 2 out of 4 Lungs: Clear to auscultation bilaterally, not in respiratory distress Abdomen: Soft nontender, nondistended positive bowel sounds, absent hepatomegaly Skin: warm and dry, absent rash, absent open wounds and nodules MSK: Right lower extremity externally rotated, short. Right thigh swelling and tender. Psych: good insight and judgment, anxious, depressed - Assessment and Plan (1) Femoral fracture Current Visit: Yes Status: Acute Assessment and Plan: 57 y/o female presents with fall xray knee/hip shows: Comminuted displaced distal femoral metadiaphyseal fracture. chest x-ray negative ortho consulted Plan for surgery today. (2) DVT prophylaxis Current Visit: Yes Status: Acute Assessment and Plan: heparin SQ (3) Diabetes mellitus Current Visit: Yes Status: Chronic Assessment and Plan: hx of DM2 non-insulin dependent A1c 5.5 Q6h accuchecks low dose SSI (4) Hx of essential hypertension Current Visit: Yes Status: Acute Assessment and Plan: hx of HTN controlled Continue home medications DVT Prophylaxis: Heparin subcutaneously - Time Spent with Patient Total time spent is greater than 50% in coordination of care (as documented) at patient's floor/unit and/or counseling patient: 30 minutes 25 - 35 minutes Plan of Care Discussed with: patient Internal Medicine: Result - Labs CBC & Chem 7: 04/10/18 00:58 04/10/18 00:58 Labs: Short CBC 04/10/18 Range/Units 00:58 WBC 6.2 (4.3-11.1) K/mcL Hgb 9.9 L D (11.5-15.4) g/dL Hct 31.3 L (35.3-44.9) % Plt Count 145 (140-400) K/mcL Neutrophils # 4.2 (1.6-8.9) K/mcL BMP 04/10/18 00:58 Sodium 139 Potassium 4.0 Chloride 109 H Carbon Dioxide 26 BUN 25 H Creatinine 1.07 Glucose 132 H Calcium 8.9 - Impressions Impressions Knee CT 04/09/18 07:55 IMPRESSION: Comminuted overriding distal femoral diaphyseal fracture. Tricompartmental osteoarthritis with joint effusion. D/ / 04/09/2018 09:27:29 Taj Donnelly MD / Lynnette Brown Interpreting Provider: Taj Donnelly MD Consult Discharge Plan - Plan Referrals: Darek Teresa MD [Primary Care Provider] - (1) Femoral fracture Qualifiers: Encounter type: initial encounter Femur location: shaft Fracture type: closed Fracture morphology: comminuted Fracture alignment: displaced Laterality: right Qualified Code(s): S72.351A - Displaced comminuted fracture of shaft of right femur, initial encounter for closed fracture (3) Diabetes mellitus Qualifiers: Diabetes mellitus type: type 2 Diabetes mellitus long chain beamer insulin use: without nursing home use Diabetes mellitus complication status: without complication Qualified Code(s): E11.9 - Type 2 diabetes mellitus without complications
[2018-04-10] MEDS ORDERED: *HR* Pioglitazone 30 MG TABLET PO SCH (14:32)
[2018-04-10] MEDS ORDERED: Bupivacaine/Clonidine Syringe 1 EACH SYRINGE ONE (15:59)
[2018-04-10] MEDS ORDERED: Ethanol\\Acetic Acid\\Na Ace\\Ben 1,000 ML IRRIG.SOLN IR ONE (16:00)
[2018-04-10] MEDS ORDERED: *HR* FentaNYL (PF) 100 MCG/2 ML VIAL ONE (17:19)
[2018-04-10] MEDS ORDERED: EPHEDrine 50 MG/ML VIAL ONE (17:19)
[2018-04-10] MEDS ORDERED: *HR* Propofol 200 MG/20 ML VIAL IVP ONE (17:19)
[2018-04-10] MEDS ORDERED: Dexamethasone 4 MG/ML VIAL ONE (17:19)
[2018-04-10] MEDS ORDERED: Ondansetron 4 MG/2 ML VIAL ONE (17:19)
[2018-04-10] MEDS ORDERED: Lidocaine -MPF 2% 2 ML VIAL ONE (17:19)
[2018-04-10] MEDS ORDERED: *HR* Midazolam HCl 2 MG/2 ML VIAL ONE (17:19)
[2018-04-10] MEDS ORDERED: Ondansetron 4 MG/2 ML VIAL IVP ONE (17:25)
[2018-04-10] MEDS ORDERED: Acetaminophen IV 1,000 MG/100 ML INFUS..BTL IVPB ONE (17:25)
[2018-04-10] MEDS ORDERED: *HR* Promethazine 25 MG/ML VIAL IVP PRN (17:25)
--- NOTE | 2018-04-10 18:18 | Orthopedic Operative Note ---
Date of procedure: 04/10/18 Pre-op diagnosis: Displaced right distal femur fracture Post-op diagnosis: same Procedure: Procedure: Right distal femoral replacement hinged Total knee replacement Estimated blood loss: 500 cc Hardware: Metal and plastic: Biomet: 7 cm femur, 19.5 x 150 porous stem. Tibia 71 long nonmodular tibia 20 Ai hinge bushings and mechanism 40 patella Procedural Notes: Patient with a displaced comminuted right distal femur fracture with grade 4 arthritic changes all 3 compartments. Operative procedure: The patient was brought to the operating room and placed on the operating room table. The operative extremity was prepped and draped in sterile surgical fashion. The patient received IV antibiotics prior to skin incision. A standard midline incision was made centered over the patella. The incision was made through the skin and subcutaneous tissue. A medial parapatellar tendon approach was performed. Care was taken to preserve tissue along the medial aspect of the patella. And to protect the patella tendon. The deep MCL was released off the medial tibia. The infra patella fat pad was excised. Patient noted to have grade 4 arthritic changes all 3 compartments. Using careful blunt and sharp dissection the distal femoral fragment was exposed. Care was taken to avoid injury to neurovascular structures. The distal fragment was excised. Exposing the end of the femur. The femur was reamed to 20 mm x 1 50 mm. The 18 stem was seated with the 7 cm femur. Attention was then turned to the tibia, The tibia was subluxed forward. The entry hole was made for the intramedullary tibial guide. Guide was seated to resect 2 mm off the medial side. Medial and lateral menisci were excised. The tibia was reamed and then broached up to appropriate size. Trial reduction had good motion and good extension good. The patella was everted and cut was made at the level of the insertion of the quadriceps and patella tendon. The patella was sized to a 40 the guide was seated and the lug holes are drilled. Trial reduction revealed excellent patella tracking. All trial components were removed all bony surfaces were irrigated. The tibia was cemented first the femur was press-fit femur. The components were locked together with the hinge mechanism. It was taken through a range of motion and good full extension, flexion and excellent patella tracking. The knee sat for 2 minutes with a antibacterial solution. The knee was then irrigated out with 2 L of pulse irrigation. The extensor mechanism was closed with running #2 PDS suture. The subcutaneous tissue was then irrigated and closed deep with #1 PDS suture superficially with 0 PDS suture and skin was closed with Dermabond and skin tamara The patient was then placed in a sterile dressing and a postoperative brace extubated and transferred to recovery room in stable condition. Anesthesia: GETA Surgeon: Gm Cameron Was there an assistant womens volleyball coach present: No Estimated blood loss (cc): 500 Condition: stable Disposition: PACU
--- NOTE | 2018-04-10 18:49 | Anesthesia Evaluation Post Op ---
Date of Encounter: 04/10/18 Time of Encounter: 18:50 - Vital Signs Vital Signs: Selected Entries 04/10/18 18:41 Temperature 97.9 F Pulse Rate 84 Respiratory Rate 18 Blood Pressure 91/59 O2 Sat by Pulse Oximetry 96 - Lungs Lungs: Clear Ascult./Percussion - Airway Airway: Non-obstructed - Cardiovascular Regular Rate - Mental Status Mental Status: Sedated - Nausea Vomiting Nausea Vomiting: Not Present - Hydration Hydration: NPO - Discharge PostOp Status: Transfer Patient to floor
[2018-04-10 20:10] LABS: Hematocrit 31.1 % (35.3-44.9)
[2018-04-10] MEDS ORDERED: SUMAtriptan succinate 50 MG TABLET PO PRN (22:14)
[2018-04-10] MEDS ORDERED: Ondansetron 4 MG/2 ML VIAL IVP PRN (22:14)
[2018-04-10] MEDS ORDERED: Sennosides 8.6 MG TABLET PO PRN (22:14)
[2018-04-10] MEDS ORDERED: hydrOXYzine pamoate 25 MG CAPSULE PO PRN (22:14)
[2018-04-10] MEDS ORDERED: D5% in Water 1,000 ML IVC PRN (22:14)
[2018-04-10] MEDS ORDERED: Dextrose Gel 15 GM/37.5 ML TUBE PO PRN ×2 (22:14)
[2018-04-10] MEDS ORDERED: *HR* Dextrose 50 % in Water (Syg) 50 ML SYRINGE IVP PRN (22:14)
[2018-04-10] MEDS ORDERED: Temazepam 15 MG CAPSULE PO PRN (22:14)
[2018-04-10] MEDS ORDERED: Naloxone 0.4 MG/ML INJ IVP PRN ×2 (22:14)
[2018-04-10] MEDS ORDERED: *HR* HYDROcodone/Acet 7.5/325 mg TABLET PO PRN (22:14)
[2018-04-10] MEDS ORDERED: tiZANidine 4 MG TABLET PO PRN (22:14)
[2018-04-10] MEDS ORDERED: Nitroglycerin 0.4 MG TAB.SUBL SL PRN (22:14)
[2018-04-10] MEDS ORDERED: MOM Conc 10 ML UD.LIQ PO PRN (22:14)
[2018-04-10] MEDS ORDERED: (Diclofenac Sodium [Voltaren] 100 GM) TP PRN (22:14)
[2018-04-10] MEDS ORDERED: Ondansetron ODT 4 MG TAB.RAPDIS SL PRN (22:14)
[2018-04-11] MEDS: Ringers Solution, Lactated 1,000 ML IVC SCH ×2 (00:33→06:43)
[2018-04-11] MEDS: Insulin LISPRO 300 UNITS/3 ML VIAL SQ SCH ×2 (00:33→06:00)
[2018-04-11] MEDS: CeFAZolin Syr 3,000MG/30 ML 3,000 MG/30 ML SYRINGE IVPB SCH ×2 (00:51→09:07)
[2018-04-11 01:26] LABS: Hemoglobin 9.5 g/dL (11.5-15.4)
[2018-04-11] MEDS: *HR* Heparin 5,000 UNIT/ML VIAL SQ SCH ×3 (06:23→21:43)
[2018-04-11] MEDS: Budesonide/Formoterol 80/4.5 MDI IH SCH ×2 (07:42→20:32)
[2018-04-11] MEDS: Topiramate 100 MG TABLET PO SCH ×2 (09:04→21:42)
[2018-04-11] MEDS: *HR* SitaGLIPtin 100 MG TABLET PO SCH (09:05)
[2018-04-11] MEDS: Pregabalin 50 MG CAPSULE PO SCH ×2 (09:05→21:42)
[2018-04-11] MEDS: BuPROPion SR (12 HR) 150 MG TABLET PO SCH ×2 (09:05→21:42)
[2018-04-11] MEDS: *HR* Pioglitazone 30 MG TABLET PO SCH (09:05)
--- NOTE | 2018-04-11 09:06 | Orthopedics Progress Note ---
Date of Encounter: 04/11/18 Time of Encounter: 09:06 Subjective Interval history: Patient was seen this morning doing well without complaints. Afebrile vital signs stable. Operative extremity: Neurovascularly intact Dressing clean dry and intact Calves nontender Assessment and plan: Continue with postoperative care Hematocrit 30 We will DC TAMIR drain and morning Objective Vital signs: Vital Signs Temp Pulse Resp BP Pulse Ox 04/11/18 07:51 98.8 F 77 16 105/72 99 04/11/18 07:42 12 99 04/11/18 03:59 69 15 102/67 100 04/11/18 00:23 97.6 F 67 16 99/65 100 04/10/18 21:35 57 14 100/62 99 04/10/18 20:43 98.5 F 64 14 97/64 98 04/10/18 20:40 85 16 97/64 99 04/10/18 20:20 16 91 04/10/18 20:10 97.6 F 76 16 92/63 99 04/10/18 19:50 98.3 F 87 14 87/62 100 04/10/18 19:45 72 16 96/64 98 04/10/18 18:51 97.8 F 78 18 107/55 98 04/10/18 18:41 97.9 F 84 18 91/59 96 04/10/18 18:31 97.9 F 83 18 107/54 100 04/10/18 18:21 97.5 F L 84 18 110/61 100 04/10/18 16:25 82 16 90/61 97 04/10/18 16:10 80 16 101/75 95 04/10/18 15:55 72 16 100/75 98 04/10/18 15:40 66 16 98/72 100 04/10/18 14:15 98.2 F 72 16 96/60 96 04/10/18 11:09 94 Intake and Output 04/10/18 04/11/18 04/11/18 23:59 07:59 15:59 Intake Total 1030 / 1030 Output Total 800 / 800 1000 / 1000 Balance -800 / -800 30 / 30 Intake: IV Fluids 1030 / 1030 Lactated Ringers 1,000 ML @ 75 1000 / 1000 mls/hr IVC .[id number] [facility] Rx#: [id number] Ancef Syringe 3,000 MG/30 ML 3, 30 / 30 000 mg In 30 ml @ 200 mls/hr IVPB Q8HR [facility] Rx#:[id number] Output: Urine 0 / 0 Estimated Blood Loss 500 / 500 Straight Cath 800 / 800 Wound Drainage 300 / 300 200 / 200 Right Knee 210 / 210 200 / 200 Other: Blood Glucose* 146 110 - Labs CBC & BMP: 04/11/18 01:06 04/10/18 00:58 Labs: Abnormal lab results RBC 3.24 M/mcL (3.82-4.97) L 04/10/18 00:58 Hgb 9.5 g/dL (11.5-15.4) L 04/11/18 01:06 Hct 30.0 % (35.3-44.9) L 04/11/18 01:06 RDW 14.9 % (11.5-14.5) H 04/10/18 00:58 Chloride 109 mEq/L (98-107) H 04/10/18 00:58 BUN 25 mg/dL (6-20) H 04/10/18 00:58 Est GFR (Non-Af Amer) 52 (> 60) L 04/10/18 00:58 Glucose 132 mg/dL (70-105) H 04/10/18 00:58 POC Glucose 167 mg/dL (70-99) H 04/11/18 00:26 Ur Leukocyte Esterase Small (Negative) H 04/09/18 04:02 Urine Microscopic WBC 5-15 per hpf (0-3) H 04/09/18 04:02 Ur Squamous Epith Cells Many per lpf (None-Few) H 04/09/18 04:02 Ur Culture Indicated? NO. (NO) A 04/09/18 04:02 Consult Discharge Plan - Plan Referrals: Darek Teresa MD [Primary Care Provider] -
[2018-04-11] MEDS: Cholecalciferol (D-3) 1,000 UNIT TABLET PO SCH (09:07)
[2018-04-11] MEDS: OXYCODONE Oral CONC 10 MG/0.5 ML ORAL.SYG SL PRN ×2 (09:08→12:29)
[2018-04-11] MEDS: (Cyclosporine [Restasis] 1 DROP) OP SCH ×3 (09:09→21:45)
[2018-04-11] MEDS: (Mirabegron [Myrbetriq] 50 MG) PO SCH (09:10)
[2018-04-11] MEDS: (Linaclotide [Linzess] 290 MCG) PO SCH (09:10)
--- NOTE | 2018-04-11 14:05 | Internal Med Progress Note ---
Hospitalist Progress Note - Encounter Date of Encounter: 04/11/18 Time of Encounter: 09:00 - Subjective Interval History: Patient s/p surgery for femoral fracture. c/o pain but controlled by pain medication. - Exam Vitals: Temp Pulse Resp BP Pulse Ox 98.6 F 85 16 105/75 97 04/11/18 12:37 04/11/18 12:37 04/11/18 12:37 04/11/18 12:37 04/11/18 12:37 Exam: General: AAO x3, without distress HEENT: Head atraumatic, normocephalic, EOMI, PERRL, absent ear discharge or trauma, Moist Mucous Membranes, uvula midline Neck: nontender to palpation, absent lymphadenopathy, Cardiovascualr: Regular rate and rhythm with no murmur, absent gallops or rubs, bilateral 1+ pedal edema, radial pulses 2 out of 4 Lungs: Clear to auscultation bilaterally, not in respiratory distress Abdomen: Soft nontender, nondistended positive bowel sounds, absent hepatomegaly Skin: warm and dry, absent rash, absent open wounds and nodules MSK: Right lower extremity tenderness. Psych: good insight and judgment, anxious, depressed - Assessment and Plan (1) Femoral fracture Current Visit: Yes Status: Acute Assessment and Plan: S/P surgery. - PTOT evaluation, plan for rehabilitation discharge - Pain management - DVT prophylaxis (2) DVT prophylaxis Current Visit: Yes Status: Acute Assessment and Plan: heparin SQ (3) Diabetes mellitus Current Visit: Yes Status: Chronic Assessment and Plan: hx of DM2 non-insulin dependent A1c 5.5 Q6h accuchecks low dose SSI (4) Hx of essential hypertension Current Visit: Yes Status: Acute Assessment and Plan: hx of HTN controlled Continue home medications DVT Prophylaxis: Heparin subcutaneously - Time Spent with Patient Total time spent is greater than 50% in coordination of care (as documented) at patient's floor/unit and/or counseling patient: 30 min 25 - 35 minutes Plan of Care Discussed with: patient Internal Medicine: Result - Labs CBC & Chem 7: 04/11/18 01:06 04/10/18 00:58 Labs: Short CBC 04/10/18 04/11/18 Range/Units 19:44 01:06 Hgb 10.0 L 9.5 L (11.5-15.4) g/dL Hct 31.1 L 30.0 L (35.3-44.9) % - Impressions Impressions Knee X-Ray 04/10/18 17:02 IMPRESSION: Anatomic alignment status post right knee arthroplasty D/ / Miguel Linares MD / Miguel Linares MD Interpreting Provider: Miguel Linares MD Consult Discharge Plan - Plan Referrals: Darek Teresa MD [Primary Care Provider] - (1) Femoral fracture Qualifiers: Encounter type: initial encounter Femur location: shaft Fracture type: closed Fracture morphology: comminuted Fracture alignment: displaced Laterality: right Qualified Code(s): S72.351A - Displaced comminuted fracture of shaft of right femur, initial encounter for closed fracture (3) Diabetes mellitus Qualifiers: Diabetes mellitus type: type 2 Diabetes mellitus care home insulin use: without terminal operator use Diabetes mellitus complication status: without complication Qualified Code(s): E11.9 - Type 2 diabetes mellitus without complications
[2018-04-11] MEDS: Mirtazapine 15 MG TABLET PO SCH (21:42)
[2018-04-11] MEDS: rOPINIRole 1 MG TABLET PO SCH (21:42)
[2018-04-11] MEDS: Latanoprost 2.5 ML BOTTLE BOTH EYES SCH (21:44)
[2018-04-12 01:36] LABS: Hematocrit 21.1 % (35.3-44.9)
[2018-04-12 01:42] LABS: Hemoglobin 6.9 g/dL (11.5-15.4)
[2018-04-12 01:51] LABS: BUN/Creatinine Ratio 26 (6-26); Blood Urea Nitrogen 26 mg/dL (6-20); Calcium 8.1 mg/dL (8.6-10.3); Carbon Dioxide 26 mEq/L (23-29); Chloride 103 mEq/L (98-107); Glucose 146 mg/dL (70-105); Osmolality,Calculated 283 (280-300); Potassium 3.6 mEq/L (3.5-5.1); Sodium 133 mEq/L (136-145); eGFR For Non-African Americans 56 (> 60)
[2018-04-12] MEDS ORDERED: Furosemide 20 MG/2 ML VIAL IVP ONE (06:49)
--- NOTE | 2018-04-12 07:03 | Orthopedics Progress Note ---
Date of Encounter: 04/12/18 Time of Encounter: 07:01 Subjective Interval history: Patient was seen this morning doing well without complaints. Afebrile vital signs stable. Operative extremity: Neurovascularly intact Dressing clean dry and intact Calves nontender Assessment and plan: Continue with postoperative care Hematocrit 21 DC drain, transfuse 2 units Objective Vital signs: Vital Signs Temp Pulse Resp BP Pulse Ox 04/12/18 05:37 99.0 F 95 17 105/69 99 04/12/18 00:13 99.8 F H 97 16 95/64 100 04/11/18 20:32 16 100 04/11/18 18:17 98.8 F 92 16 106/69 100 04/11/18 16:40 99.2 F 96 16 94/63 100 04/11/18 12:37 98.6 F 85 16 105/75 97 04/11/18 09:31 99 04/11/18 07:51 98.8 F 77 16 105/72 99 04/11/18 07:42 12 99 Intake and Output 04/11/18 04/11/18 04/12/18 15:59 23:59 07:59 Intake Total 30 / 30 Output Total 155 / 155 65 / 65 140 / 140 Balance -125 / -125 -65 / -65 -140 / -140 Intake: IV Fluids 30 / 30 Ancef Syringe 3,000 MG/30 ML 3, 30 / 30 000 mg In 30 ml @ 200 mls/hr IVPB Q8HR [facility] Rx#:[id number] Output: Wound Drainage 155 / 155 65 / 65 140 / 140 Right Knee 155 / 155 65 / 65 140 / 140 Other: # Voids 1 # Urine Diapers 1 Blood Glucose* 94 142 - Labs CBC & BMP: 04/12/18 01:09 04/12/18 01:09 Labs: Abnormal lab results RBC 3.24 M/mcL (3.82-4.97) L 04/10/18 00:58 Hgb 6.9 g/dL (11.5-15.4) L D 04/12/18 01:09 Hct 21.1 % (35.3-44.9) L 04/12/18 01:09 RDW 14.9 % (11.5-14.5) H 04/10/18 00:58 Sodium 133 mEq/L (136-145) L 04/12/18 01:09 BUN 26 mg/dL (6-20) H 04/12/18 01:09 Est GFR (Non-Af Amer) 56 (> 60) L 04/12/18 01:09 Glucose 146 mg/dL (70-105) H 04/12/18 01:09 Calcium 8.1 mg/dL (8.6-10.3) L 04/12/18 01:09 Ur Leukocyte Esterase Small (Negative) H 04/09/18 04:02 Urine Microscopic WBC 5-15 per hpf (0-3) H 04/09/18 04:02 Ur Squamous Epith Cells Many per lpf (None-Few) H 04/09/18 04:02 Ur Culture Indicated? NO. (NO) A 04/09/18 04:02 Consult Discharge Plan - Plan Referrals: Darek Teresa MD [Primary Care Provider] -
[2018-04-12] MEDS: *HR* Heparin 5,000 UNIT/ML VIAL SQ SCH ×3 (07:05→20:32)
[2018-04-12] MEDS: Budesonide/Formoterol 80/4.5 MDI IH SCH ×2 (08:03→20:18)
--- NOTE | 2018-04-12 08:37 | Electrocardiograph Report ---
[address] [address] Test Date: 2018-04-10 Pat Name: Margaret Villafana Department: 114 Room: [facility] Gender: F Slope Hoist Operator: : 1960 Requested By: Marilee Scott Order Number: [id number] Reading MD: Alfred Parsons Measurements Intervals [place] Rate: 75 P: -14 MN: 366 QRS: -23 QRSD: 82 T: 0 QT: 397 QTc: 426 Interpretive Statements Baseline artifact complicates interpretation Probably sinus rhythm Recommend repeat ECG Electronically Signed On 04-12-2018 8:35:59 EDT by Alfred Parsons
[2018-04-12] MEDS: BuPROPion SR (12 HR) 150 MG TABLET PO SCH ×2 (10:20→20:33)
[2018-04-12] MEDS: (Cyclosporine [Restasis] 1 DROP) OP SCH ×2 (10:20→20:33)
[2018-04-12] MEDS: (Mirabegron [Myrbetriq] 50 MG) PO SCH (10:20)
[2018-04-12] MEDS: (Linaclotide [Linzess] 290 MCG) PO SCH (10:20)
[2018-04-12] MEDS: *HR* SitaGLIPtin 100 MG TABLET PO SCH (10:21)
[2018-04-12] MEDS: Topiramate 100 MG TABLET PO SCH ×2 (10:21→20:33)
[2018-04-12] MEDS: Pregabalin 50 MG CAPSULE PO SCH ×2 (10:21→20:33)
[2018-04-12] MEDS: Cholecalciferol (D-3) 1,000 UNIT TABLET PO SCH (10:22)
[2018-04-12] MEDS: *HR* Pioglitazone 30 MG TABLET PO SCH (10:22)
[2018-04-12] MEDS: OXYCODONE Oral CONC 10 MG/0.5 ML ORAL.SYG SL PRN (10:24)
[2018-04-12] MEDS ORDERED: 0.9 % Sodium Chloride 250 ML ONE ×2 (10:31→16:10)
--- NOTE | 2018-04-12 12:04 | Internal Med Progress Note ---
Hospitalist Progress Note - Encounter Date of Encounter: 04/12/18 Time of Encounter: 08:00 - Subjective Interval History: Patient s/p surgery for femoral fracture. c/o pain but controlled by pain medication. No further complaints. - Exam Vitals: Temp Pulse Resp BP Pulse Ox 99.2 F 79 18 104/69 100 04/12/18 11:56 04/12/18 11:56 04/12/18 11:56 04/12/18 11:56 04/12/18 11:56 Exam: General: AAO x3, without distress HEENT: Head atraumatic, normocephalic, EOMI, PERRL, absent ear discharge or trauma, Moist Mucous Membranes, uvula midline Neck: nontender to palpation, absent lymphadenopathy, Cardiovascualr: Regular rate and rhythm with no murmur, absent gallops or rubs, bilateral 1+ pedal edema, radial pulses 2 out of 4 Lungs: Clear to auscultation bilaterally, not in respiratory distress Abdomen: Soft nontender, nondistended positive bowel sounds, absent hepatomegaly Skin: warm and dry, absent rash, absent open wounds and nodules MSK: Right lower extremity s/p surgery, with tenderness. Psych: good insight and judgment, anxious, depressed - Assessment and Plan (1) Femoral fracture Current Visit: Yes Status: Acute Assessment and Plan: S/P surgery. - PTOT evaluation, plan for rehabilitation discharge - Pain management - DVT prophylaxis (2) DVT prophylaxis Current Visit: Yes Status: Acute Assessment and Plan: heparin SQ (3) Diabetes mellitus Current Visit: Yes Status: Chronic Assessment and Plan: hx of DM2 non-insulin dependent A1c 5.5 Q6h accuchecks low dose SSI (4) Hx of essential hypertension Current Visit: Yes Status: Acute Assessment and Plan: hx of HTN controlled Continue home medications (5) Anemia due to acute blood loss Current Visit: Yes Status: Acute Assessment and Plan: Hgb 6.9 today. Will give 2 units of PRBC. DVT Prophylaxis: Heparin sc - Time Spent with Patient Total time spent is greater than 50% in coordination of care (as documented) at patient's floor/unit and/or counseling patient: 30 min 25 - 35 minutes Plan of Care Discussed with: patient Internal Medicine: Result - Labs CBC & Chem 7: 04/12/18 01:09 04/12/18 01:09 Labs: Short CBC 04/12/18 Range/Units 01:09 Hgb 6.9 L D (11.5-15.4) g/dL Hct 21.1 L (35.3-44.9) % BMP 04/12/18 01:09 Sodium 133 L Potassium 3.6 Chloride 103 Carbon Dioxide 26 BUN 26 H Creatinine 1.01 Glucose 146 H Calcium 8.1 L Consult Discharge Plan - Plan Referrals: Darek Teresa MD [Primary Care Provider] - (1) Femoral fracture Qualifiers: Encounter type: initial encounter Femur location: shaft Fracture type: closed Fracture morphology: comminuted Fracture alignment: displaced Laterality: right Qualified Code(s): S72.351A - Displaced comminuted fracture of shaft of right femur, initial encounter for closed fracture (3) Diabetes mellitus Qualifiers: Diabetes mellitus type: type 2 Diabetes mellitus intermediate card tender insulin use: without intermediate card tender use Diabetes mellitus complication status: without complication Qualified Code(s): E11.9 - Type 2 diabetes mellitus without complications
[2018-04-12] MEDS: Mirtazapine 15 MG TABLET PO SCH (20:33)
[2018-04-12] MEDS: rOPINIRole 1 MG TABLET PO SCH (20:33)
[2018-04-12] MEDS: Latanoprost 2.5 ML BOTTLE BOTH EYES SCH (20:34)
[2018-04-13 01:06] LABS: Basophils % 0.3 %; Eosinophils # 0.1 K/mcL (0.0-0.6); Eosinophils % 0.9 %; Immature Granulocytes % 1.8 % (0-4); Lymphocytes % 10.2 %; Mean Corpuscular HGB Conc 33.7 g/dL (31.6-35.5); Mean Corpuscular Hemoglobin 31.6 pg (28.0-33.3); Mean Corpuscular Volume 93.8 fL (83.0-100.0); Mean Platelet Volume 10.9 fL (9.4-12.4); Monocytes # 1.1 K/mcL (0.0-1.3); Monocytes % 11.4 %; Neutrophils # 7.3 K/mcL (1.6-8.9); Platelet Count 135 K/mcL (140-400); Red Blood Count 2.88 M/mcL (3.82-4.97); Red Cell Distribution Width 15.1 % (11.5-14.5); Segmented Neutrophils % 75.4 %
[2018-04-13 01:11] LABS: Hemoglobin 9.1 g/dL (11.5-15.4)
[2018-04-13 01:25] LABS: BUN/Creatinine Ratio 31 (6-26); Blood Urea Nitrogen 26 mg/dL (6-20); Calcium 8.3 mg/dL (8.6-10.3); Carbon Dioxide 26 mEq/L (23-29); Chloride 100 mEq/L (98-107); Glucose 142 mg/dL (70-105); Osmolality,Calculated 285 (280-300); Potassium 3.1 mEq/L (3.5-5.1); Sodium 134 mEq/L (136-145); eGFR For Non-African Americans > 60 (> 60)
[2018-04-13] MEDS ORDERED: Acetaminophen 325 MG TABLET PO PRN (05:48)
--- NOTE | 2018-04-13 06:04 | Orthopedics Progress Note ---
Date of Encounter: 04/13/18 Time of Encounter: 06:04 Subjective Interval history: Patient was seen this morning doing well without complaints. Afebrile vital signs stable. Operative extremity: Neurovascularly intact Dressing clean dry and intact Calves nontender Assessment and plan: Continue with postoperative care Hematocrit 27 plan for discharge when approved Objective Vital signs: Vital Signs Temp Pulse Resp BP Pulse Ox 04/13/18 04:50 100.2 F H 100 15 113/73 93 04/13/18 00:29 99.2 F 91 17 120/75 100 04/12/18 20:18 16 99 04/12/18 19:36 98.8 F 77 14 112/70 100 04/12/18 16:52 99.9 F H 93 16 109/75 99 04/12/18 16:36 98.9 F 91 92 04/12/18 16:35 107/75 04/12/18 16:04 99.2 F 90 18 109/75 96 04/12/18 14:53 99.5 F 93 16 93/65 98 04/12/18 12:04 100.0 F H 77 18 93/35 100 04/12/18 11:56 99.2 F 79 18 104/69 100 04/12/18 10:49 99 04/12/18 08:03 16 98 Intake and Output 04/12/18 04/12/18 04/13/18 15:59 23:59 07:59 Intake Total 710 / 710 350 / 350 Balance 710 / 710 350 / 350 Intake: Oral 360 / 360 Blood Product 350 / 350 350 / 350 Rbcs Leuko Poor As-1 Unit 350 / 350 [id number] Rbcs Leuko Poor As-1 Unit 350 / 350 [id number] Other: Meal Breakfast Percent of Meal Consumed 100% # Voids 1 Weight 125 kg Blood Glucose* 170 Patient Weight 04/13/18 23:59 Weight 125 kg - Labs CBC & BMP: 04/13/18 00:42 04/13/18 00:42 Labs: Abnormal lab results RBC 2.88 M/mcL (3.82-4.97) L 04/13/18 00:42 Hgb 9.1 g/dL (11.5-15.4) L D 04/13/18 00:42 Hct 27.0 % (35.3-44.9) L 04/13/18 00:42 RDW 15.1 % (11.5-14.5) H 04/13/18 00:42 Plt Count 135 K/mcL (140-400) L 04/13/18 00:42 Sodium 134 mEq/L (136-145) L 04/13/18 00:42 Potassium 3.1 mEq/L (3.5-5.1) L 04/13/18 00:42 BUN 26 mg/dL (6-20) H 04/13/18 00:42 BUN/Creatinine Ratio 31 (6-26) H 04/13/18 00:42 Glucose 142 mg/dL (70-105) H 04/13/18 00:42 POC Glucose 170 mg/dL (70-99) H 04/12/18 19:24 Calcium 8.3 mg/dL (8.6-10.3) L 04/13/18 00:42 Ur Leukocyte Esterase Small (Negative) H 04/09/18 04:02 Urine Microscopic WBC 5-15 per hpf (0-3) H 04/09/18 04:02 Ur Squamous Epith Cells Many per lpf (None-Few) H 04/09/18 04:02 Ur Culture Indicated? NO. (NO) A 04/09/18 04:02 Consult Discharge Plan - Plan Referrals: Darek Teresa MD [Primary Care Provider] -
[2018-04-13] MEDS: *HR* Heparin 5,000 UNIT/ML VIAL SQ SCH ×3 (06:11→22:20)
[2018-04-13] MEDS: *HR* Pioglitazone 30 MG TABLET PO SCH (10:38)
[2018-04-13] MEDS: *HR* SitaGLIPtin 100 MG TABLET PO SCH (10:38)
[2018-04-13] MEDS: Topiramate 100 MG TABLET PO SCH ×2 (10:41→20:00)
[2018-04-13] MEDS: Cholecalciferol (D-3) 1,000 UNIT TABLET PO SCH (10:41)
[2018-04-13] MEDS: BuPROPion SR (12 HR) 150 MG TABLET PO SCH ×2 (10:42→20:00)
[2018-04-13] MEDS: Pregabalin 50 MG CAPSULE PO SCH ×2 (10:43→20:00)
[2018-04-13] MEDS: Budesonide/Formoterol 80/4.5 MDI IH SCH (10:45)
[2018-04-13] MEDS: (Mirabegron [Myrbetriq] 50 MG) PO SCH (10:57)
[2018-04-13] MEDS: (Cyclosporine [Restasis] 1 DROP) OP SCH ×2 (10:59→20:00)
[2018-04-13] MEDS: (Linaclotide [Linzess] 290 MCG) PO SCH (11:00)
--- NOTE | 2018-04-13 11:56 | Internal Med Progress Note ---
Hospitalist Progress Note - Encounter Date of Encounter: 04/13/18 Time of Encounter: 08:00 - Subjective Interval History: Patient s/p surgery for femoral fracture. c/o pain but controlled by pain medication. Still weak. - Exam Vitals: Temp Pulse Resp BP Pulse Ox 99.1 F 69 16 91/67 97 04/13/18 07:54 04/13/18 07:54 04/13/18 07:54 04/13/18 07:54 04/13/18 07:54 Exam: General: AAO x3, without distress HEENT: Head atraumatic, normocephalic, EOMI, PERRL, absent ear discharge or trauma, Moist Mucous Membranes, uvula midline Neck: nontender to palpation, absent lymphadenopathy, Cardiovascualr: Regular rate and rhythm with no murmur, absent gallops or rubs, bilateral 1+ pedal edema, radial pulses 2 out of 4 Lungs: Clear to auscultation bilaterally, not in respiratory distress Abdomen: Soft nontender, nondistended positive bowel sounds, absent hepatomegaly Skin: warm and dry, absent rash, absent open wounds and nodules MSK: Right lower extremity s/p surgery, with tenderness. Psych: good insight and judgment, anxious, depressed - Assessment and Plan (1) Femoral fracture Current Visit: Yes Status: Acute Assessment and Plan: S/P surgery. - PTOT evaluation, plan for rehabilitation discharge - Pain management - DVT prophylaxis (2) DVT prophylaxis Current Visit: Yes Status: Acute Assessment and Plan: heparin SQ (3) Diabetes mellitus Current Visit: Yes Status: Chronic Assessment and Plan: hx of DM2 non-insulin dependent A1c 5.5 Q6h accuchecks low dose SSI (4) Hx of essential hypertension Current Visit: Yes Status: Acute Assessment and Plan: hx of HTN controlled Continue home medications (5) Anemia due to acute blood loss Current Visit: Yes Status: Acute Assessment and Plan: Hgb 9.1 after transfusion. (6) Hypokalemia Current Visit: Yes Status: Acute Assessment and Plan: Extra supplement given. Cont home dose potassium pills, encourage pt to increase intake. DVT Prophylaxis: Heparin SC - Time Spent with Patient Total time spent is greater than 50% in coordination of care (as documented) at patient's floor/unit and/or counseling patient: 30 min 25 - 35 minutes Plan of Care Discussed with: patient Internal Medicine: Result - Labs CBC & Chem 7: 04/13/18 00:42 04/13/18 00:42 Labs: Short CBC 04/13/18 Range/Units 00:42 WBC 9.7 D (4.3-11.1) K/mcL Hgb 9.1 L D (11.5-15.4) g/dL Hct 27.0 L (35.3-44.9) % Plt Count 135 L (140-400) K/mcL Neutrophils # 7.3 (1.6-8.9) K/mcL BMP 04/13/18 00:42 Sodium 134 L Potassium 3.1 L Chloride 100 Carbon Dioxide 26 BUN 26 H Creatinine 0.84 Glucose 142 H Calcium 8.3 L Consult Discharge Plan - Plan Referrals: Darek Teresa MD [Primary Care Provider] - (1) Femoral fracture Qualifiers: Encounter type: initial encounter Femur location: shaft Fracture type: closed Fracture morphology: comminuted Fracture alignment: displaced Laterality: right Qualified Code(s): S72.351A - Displaced comminuted fracture of shaft of right femur, initial encounter for closed fracture (3) Diabetes mellitus Qualifiers: Diabetes mellitus type: type 2 Diabetes mellitus mcc insulin use: without roasterman use Diabetes mellitus complication status: without complication Qualified Code(s): E11.9 - Type 2 diabetes mellitus without complications
[2018-04-13] MEDS: *HR* OxyCODONE/APAP 10/325 TABLET PO PRN (15:10)
[2018-04-13] MEDS: rOPINIRole 1 MG TABLET PO SCH (20:00)
[2018-04-13] MEDS: Mirtazapine 15 MG TABLET PO SCH (20:00)
[2018-04-13] MEDS: Latanoprost 2.5 ML BOTTLE BOTH EYES SCH (20:00)
[2018-04-14] MEDS: Budesonide/Formoterol 80/4.5 MDI IH SCH ×3 (00:44→21:55)
[2018-04-14 01:31] LABS: Hemoglobin 8.3 g/dL (11.5-15.4)
[2018-04-14 01:44] LABS: BUN/Creatinine Ratio 32 (6-26); Blood Urea Nitrogen 29 mg/dL (6-20); Calcium 8.4 mg/dL (8.6-10.3); Carbon Dioxide 25 mEq/L (23-29); Chloride 100 mEq/L (98-107); Glucose 149 mg/dL (70-105); Magnesium 1.7 mg/dL (1.6-2.6); Osmolality,Calculated 283 (280-300); Potassium 3.8 mEq/L (3.5-5.1); Sodium 132 mEq/L (136-145); eGFR For Non-African Americans > 60 (> 60)
[2018-04-14] MEDS: *HR* Heparin 5,000 UNIT/ML VIAL SQ SCH ×4 (05:56→21:59)
[2018-04-14] MEDS ORDERED: Furosemide 20 MG/2 ML VIAL IVP ONE (06:49)
--- NOTE | 2018-04-14 06:59 | Orthopedics Progress Note ---
Date of Encounter: 04/14/18 Time of Encounter: 06:58 Subjective Interval history: Patient was seen this morning doing well without complaints. Afebrile vital signs stable. Operative extremity: Neurovascularly intact Dressing clean dry and intact Calves nontender Assessment and plan: Continue with postoperative care Hematocrit 25 transfuse 2 units plan for discharge when approved Objective Vital signs: Vital Signs Temp Pulse Resp BP Pulse Ox 04/14/18 04:13 98.4 F 90 18 111/75 93 04/14/18 00:44 18 94 04/13/18 22:37 98.1 F 94 18 112/74 94 04/13/18 18:40 98.9 F 99 18 105/67 94 04/13/18 15:04 98.0 F 85 16 115/70 100 04/13/18 10:45 16 91/67 96 04/13/18 07:54 99.1 F 69 16 /67 97 Intake and Output 04/13/18 04/13/18 04/14/18 15:59 23:59 07:59 Intake Total 480 / 480 Output Total 900 / 900 Balance -420 / -420 Intake: Oral 480 / 480 Output: Urine 900 / 900 Other: Meal Breakfast Percent of Meal Consumed 100% Stool Size Moderate Stool Consistency soft Stool Color Brown # Voids 1 # Urine Diapers 1 Blood Glucose* 143 171 - Labs CBC & BMP: 04/14/18 01:12 04/14/18 01:12 Labs: Abnormal lab results RBC 2.88 M/mcL (3.82-4.97) L 04/13/18 00:42 Hgb 8.3 g/dL (11.5-15.4) L 04/14/18 01:12 Hct 25.0 % (35.3-44.9) L 04/14/18 01:12 RDW 15.1 % (11.5-14.5) H 04/13/18 00:42 Plt Count 135 K/mcL (140-400) L 04/13/18 00:42 Sodium 132 mEq/L (136-145) L 04/14/18 01:12 BUN 29 mg/dL (6-20) H 04/14/18 01:12 BUN/Creatinine Ratio 32 (6-26) H 04/14/18 01:12 Glucose 149 mg/dL (70-105) H 04/14/18 01:12 POC Glucose 171 mg/dL (70-99) H 04/13/18 22:35 Calcium 8.4 mg/dL (8.6-10.3) L 04/14/18 01:12 Ur Leukocyte Esterase Small (Negative) H 04/09/18 04:02 Urine Microscopic WBC 5-15 per hpf (0-3) H 04/09/18 04:02 Ur Squamous Epith Cells Many per lpf (None-Few) H 04/09/18 04:02 Ur Culture Indicated? NO. (NO) A 04/09/18 04:02 Consult Discharge Plan - Plan Referrals: Darek Teresa MD [Primary Care Provider] -
[2018-04-14] MEDS: Pregabalin 50 MG CAPSULE PO SCH ×2 (09:28→21:59)
[2018-04-14] MEDS: *HR* SitaGLIPtin 100 MG TABLET PO SCH (09:29)
[2018-04-14] MEDS: *HR* OxyCODONE/APAP 10/325 TABLET PO PRN (09:29)
[2018-04-14] MEDS: BuPROPion SR (12 HR) 150 MG TABLET PO SCH ×2 (09:29→21:59)
[2018-04-14] MEDS: Cholecalciferol (D-3) 1,000 UNIT TABLET PO SCH (09:30)
[2018-04-14] MEDS: Topiramate 100 MG TABLET PO SCH ×2 (09:30→22:00)
[2018-04-14] MEDS: *HR* Pioglitazone 30 MG TABLET PO SCH (09:30)
[2018-04-14] MEDS: (Linaclotide [Linzess] 290 MCG) PO SCH (09:37)
[2018-04-14] MEDS: (Cyclosporine [Restasis] 1 DROP) OP SCH ×2 (09:38→22:12)
--- NOTE | 2018-04-14 12:54 | Internal Med Progress Note ---
Hospitalist Progress Note - Encounter Date of Encounter: 04/14/18 Time of Encounter: 08:00 - Subjective Interval History: Patient s/p surgery for femoral fracture. c/o pain but controlled by pain medication. Still weak. Low H/H and blood transfusion ordered by ortho. - Exam Vitals: Temp Pulse Resp BP Pulse Ox 98.6 F 82 20 94/65 95 04/14/18 11:45 04/14/18 11:45 04/14/18 11:45 04/14/18 11:45 04/14/18 11:45 Exam: General: AAO x3, without distress HEENT: Head atraumatic, normocephalic, EOMI, PERRL, absent ear discharge or trauma, Moist Mucous Membranes, uvula midline Neck: nontender to palpation, absent lymphadenopathy, Cardiovascualr: Regular rate and rhythm with no murmur, absent gallops or rubs, bilateral 1+ pedal edema, radial pulses 2 out of 4 Lungs: Clear to auscultation bilaterally, not in respiratory distress Abdomen: Soft nontender, nondistended positive bowel sounds, absent hepatomegaly Skin: warm and dry, absent rash, absent open wounds and nodules MSK: Right lower extremity s/p surgery, with tenderness. Psych: good insight and judgment, anxious, depressed - Assessment and Plan (1) Femoral fracture Current Visit: Yes Status: Acute Assessment and Plan: S/P surgery. - PTOT evaluation, plan for rehabilitation discharge - Pain management - DVT prophylaxis (2) DVT prophylaxis Current Visit: Yes Status: Acute Assessment and Plan: heparin SQ (3) Diabetes mellitus Current Visit: Yes Status: Chronic Assessment and Plan: hx of DM2 non-insulin dependent A1c 5.5 Q6h accuchecks low dose SSI (4) Hx of essential hypertension Current Visit: Yes Status: Acute Assessment and Plan: hx of HTN controlled Continue home medications (5) Anemia due to acute blood loss Current Visit: Yes Status: Acute Assessment and Plan: Hgb 8.3. Will give transfusion today per ortho. (6) Hypokalemia Current Visit: Yes Status: Acute Assessment and Plan: Extra supplement given. Cont home dose potassium pills, encourage pt to increase intake. DVT Prophylaxis: Heparin SC - Time Spent with Patient Total time spent is greater than 50% in coordination of care (as documented) at patient's floor/unit and/or counseling patient: 30 min 25 - 35 minutes Internal Medicine: Result - Labs CBC & Chem 7: 04/14/18 01:12 04/14/18 01:12 Labs: Short CBC 04/14/18 Range/Units 01:12 Hgb 8.3 L (11.5-15.4) g/dL Hct 25.0 L (35.3-44.9) % BMP 04/14/18 01:12 Sodium 132 L Potassium 3.8 Chloride 100 Carbon Dioxide 25 BUN 29 H Creatinine 0.92 Glucose 149 H Calcium 8.4 L Consult Discharge Plan - Plan Referrals: Darek Teresa MD [Primary Care Provider] - (1) Femoral fracture Qualifiers: Encounter type: initial encounter Femur location: shaft Fracture type: closed Fracture morphology: comminuted Fracture alignment: displaced Laterality: right Qualified Code(s): S72.351A - Displaced comminuted fracture of shaft of right femur, initial encounter for closed fracture (3) Diabetes mellitus Qualifiers: Diabetes mellitus type: type 2 Diabetes mellitus termite exterminator helper insulin use: without group home use Diabetes mellitus complication status: without complication Qualified Code(s): E11.9 - Type 2 diabetes mellitus without complications
[2018-04-14] MEDS: (Mirabegron [Myrbetriq] 50 MG) PO SCH (18:04)
[2018-04-14] MEDS: Ringers Solution, Lactated 1,000 ML IVC SCH ×4 (19:37→21:59)
[2018-04-14] MEDS: 0.9 % Sodium Chloride 250 ML IVC SCH ×2 (19:40→19:41)
[2018-04-14] MEDS: rOPINIRole 1 MG TABLET PO SCH (21:59)
[2018-04-14] MEDS: Mirtazapine 15 MG TABLET PO SCH (22:00)
[2018-04-14] MEDS: Latanoprost 2.5 ML BOTTLE BOTH EYES SCH (22:05)
[2018-04-15 02:43] LABS: Basophils % 0.4 %; Eosinophils # 0.2 K/mcL (0.0-0.6); Eosinophils % 2.7 %; Hematocrit 28.5 % (35.3-44.9); Hemoglobin 9.5 g/dL (11.5-15.4); Immature Granulocytes % 2.7 % (0-4); Lymphocytes # 0.9 K/mcL (0.6-4.6); Lymphocytes % 12.7 %; Mean Corpuscular HGB Conc 33.3 g/dL (31.6-35.5); Mean Corpuscular Hemoglobin 29.8 pg (28.0-33.3); Mean Corpuscular Volume 89.3 fL (83.0-100.0); Mean Platelet Volume 10.4 fL (9.4-12.4); Monocytes # 0.8 K/mcL (0.0-1.3); Monocytes % 11.7 %; Neutrophils # 4.7 K/mcL (1.6-8.9); Platelet Count 141 K/mcL (140-400); Red Blood Count 3.19 M/mcL (3.82-4.97); Red Cell Distribution Width 15.8 % (11.5-14.5); Segmented Neutrophils % 69.8 %
[2018-04-15 03:04] LABS: BUN/Creatinine Ratio 37 (6-26); Blood Urea Nitrogen 36 mg/dL (6-20); Calcium 8.6 mg/dL (8.6-10.3); Carbon Dioxide 25 mEq/L (23-29); Chloride 102 mEq/L (98-107); Glucose 148 mg/dL (70-105); Osmolality,Calculated 289 (280-300); Potassium 3.5 mEq/L (3.5-5.1); Sodium 134 mEq/L (136-145); eGFR For Non-African Americans 59 (> 60)
[2018-04-15] MEDS: *HR* Heparin 5,000 UNIT/ML VIAL SQ SCH ×2 (05:25→14:43)
[2018-04-15] MEDS: Budesonide/Formoterol 80/4.5 MDI IH SCH (08:00)
--- NOTE | 2018-04-15 10:33 | Physician Discharge Referral ---
<Marilee Scott L - Last Filed: 04/15/18 10:31> [facility] Referral Info Transfer To: ECF Provider in Charge: PCP Provider in Charge after Transfer: PCP Institutional Level of Care: Skilled - Diagnosis (1) Status post right knee surgery Priority: Primary Status: Acute (2) Femoral fracture Priority: Primary Status: Acute (3) Frequent falls Priority: Primary Status: Acute (4) Hx of essential hypertension Priority: Secondary Status: Acute (5) Diabetes mellitus Priority: Secondary Status: Chronic (6) Non-pressure chronic ulcer of other part of right lower leg limited to breakdown of skin Priority: Secondary Status: Acute (7) Anemia due to acute blood loss Priority: Secondary Status: Acute - Transfer Medications Prescriptions: Aspirin Enteric Coated [Aspirin EC] 325 mg PO BID 10 Days #1 tablet. HYDROcodone/Acet 7.5/325 mg [[place] 7.5-325 mg] 1 tab PO Q6H PRN 30 Days #4 tablet PRN Reason: Severe Pain Home Medications: Albuterol Sulfate [Ventolin Hfa] 2 puff IH Q4H PRN 04/09/18 [History] Allopurinol [Zyloprim] 300 mg PO DAILY 04/09/18 [History] Atorvastatin [Lipitor] 40 mg PO HS 04/09/18 [History] Bimatoprost [Lumigan] 1 drop OP QPM 04/09/18 [History] BuPROPion SR (12 HR) [Wellbutrin SR] 150 mg PO BID 04/09/18 [History] Chlorthalidone 50 mg PO QAM 04/09/18 [History] Cholecalciferol (D-3) [Vitamin D] 5,000 unit PO DAILY 04/09/18 [History] Cyclosporine [Restasis] 1 drop BOTH EYES BID 04/09/18 [History] Diclofenac Sodium [Voltaren] 100 gm TP PRN PRN 04/09/18 [History] Fluticasone/Salmeterol [Advair 250-50 Diskus] 1 puff IH BID 04/09/18 [History] Levothyroxine Sodium [Levoxyl] 88 mcg PO DAILY 04/09/18 [History] Linaclotide [Linzess] 290 mcg PO DAILY 04/09/18 [History] Metoprolol [Lopressor] 50 mg PO BID 04/09/18 [History] Mirabegron [Myrbetriq] 50 mg PO DAILY 04/09/18 [History] Mirtazapine [Remeron] 15 mg PO HS 04/09/18 [History] Montelukast [Singulair] 10 mg PO DAILY 04/09/18 [History] Nitroglycerin [Nitrostat] 0.4 mg SL Q5M PRN 04/09/18 [History] Nortriptyline HCl 150 mg PO DAILY 04/09/18 [History] Pantoprazole Sodium [Protonix] 40 mg PO DAILY 04/09/18 [History] Pioglitazone HCl [Actos] 30 mg PO DAILY 04/09/18 [History] Potassium Chloride [Klor-Con 10] 10 meq PO DAILY 04/09/18 [History] Pregabalin [Lyrica] 200 mg PO BID 04/09/18 [History] SUMAtriptan Succinate [Imitrex] 100 mg PO Q2H PRN 04/09/18 [History] SitaGLIPtin [Januvia] 100 mg PO DAILY 04/09/18 [History] Timolol Maleate 0.5% 1 drop OP BID 04/09/18 [History] Tizanidine HCl 8 mg PO TID PRN 04/09/18 [History] Topiramate [Topamax] 200 mg PO BID 04/09/18 [History] hydrOXYzine HCl [Hydroxyzine HCl] 50 mg PO Q8H PRN 04/09/18 [History] rOPINIRole [Requip] 1 mg PO HS 04/09/18 [History] Aspirin Enteric Coated [Aspirin EC] 325 mg PO BID 10 Days #1 tablet.dr 04/15/18 [Rx] Docusate [Colace] 100 mg PO BID capsule 04/15/18 [Rx] HYDROcodone/Acet 7.5/325 mg [[place] 7.5-325 mg] 1 tab PO Q6H PRN 30 Days #4 tablet 04/15/18 [Rx] MOM Conc [MILK OF MAGNESIA conc] 5 ml PO HS PRN ud.liq 04/15/18 [Rx] Ondansetron ODT [Zofran ODT] 4 mg SL Q6HR PRN tab.rapdis 04/15/18 [Rx] Allergies/Adverse Reactions: 3 Allergy/AdvReac Type Severity Reaction Status Date / Time Nefazodone [From Serzone] Allergy Rash Verified 12/09/16 14:49 - Respiratory Orders Smoking Cessation: Smoking cessation has been advised. For more information, call the [employer] Quit Line at 5-571-NHEV-NOW. - Mobility Orders Ambulate - Rehabiliation Orders Rehab Orders: ROM Exercises, Evaluation for Physical Therapy, Evaluation for Occupational Therapy Other: ORTHOPEDIC ORDERS: Opsite dressing, leave intact until first post-operative visit. If dressing becomes >50% saturated, contact office, remove dressing and place appropriate dressing in its place. Do not allow for dressing to get wet. Zipline/[place] in place, plan to remove at post-operative day #14-16. Total Joint Precautions x 6 weeks. No knee flexion. WBAT. Apply cold therapy wrap 3-6x/day for 20 minutes at a time. Encourage ambulation throughout the day Use Incentive spirometer 10x/hour. Elevate affected extremity above heart as tolerated. Brace: Wear knee brace x 6 weeks, no flexion of knee. Wound care: Cleanse leg daily, assessing for evidence of skin breakdown. Heel protectors: bilateral heels. Assess for skin breakdown daily. Relief pressure from heels at all times. CERTIFICATION: I certify that the transfer of the above named patient to an Extended Care Facility is necessary for the continuing treatment of the diagnosis listed. The above information is true and accurate reflection of patient's current condition. Confidential - Redisclosure prohibited without a patient's written consent. <Sandra Donald - Last Filed: 04/15/18 13:52> - Diagnosis (1) Femoral fracture Status: Acute (2) DVT prophylaxis Priority: Secondary Status: Acute (3) Diabetes mellitus Priority: Secondary Status: Chronic (4) Hx of essential hypertension Priority: Secondary Status: Chronic (5) Anemia due to acute blood loss Priority: Secondary Status: Acute (6) Hypokalemia Priority: Secondary Status: Resolved Prognosis: Good - Respiratory Orders Smoking Cessation: Smoking cessation has been advised. For more information, call the [employer] Quit Line at 6-468-LZAT-NOW. - Lab Orders Lab Orders: CBC (in one week to assess hgb) - Advance Directives Code Status: Full Code - Diet Orders No Concentrated Sweets CERTIFICATION: I certify that the transfer of the above named patient to an Extended Care Facility is necessary for the continuing treatment of the diagnosis listed. The above information is true and accurate reflection of patient's current condition. Confidential - Redisclosure prohibited without a patient's written consent.
[2018-04-15] MEDS: BuPROPion SR (12 HR) 150 MG TABLET PO SCH (10:53)
[2018-04-15] MEDS: Pregabalin 50 MG CAPSULE PO SCH (10:53)
[2018-04-15] MEDS: Cholecalciferol (D-3) 1,000 UNIT TABLET PO SCH (10:54)
[2018-04-15] MEDS: *HR* Pioglitazone 30 MG TABLET PO SCH (10:54)
[2018-04-15] MEDS: (Cyclosporine [Restasis] 1 DROP) OP SCH (10:54)
[2018-04-15] MEDS: Topiramate 100 MG TABLET PO SCH (10:54)
[2018-04-15] MEDS: *HR* SitaGLIPtin 100 MG TABLET PO SCH (10:54)
[2018-04-15] MEDS: (Mirabegron [Myrbetriq] 50 MG) PO SCH (10:55)
[2018-04-15] MEDS: (Linaclotide [Linzess] 290 MCG) PO SCH (10:55)
[2018-04-15] MEDS: *HR* OxyCODONE/APAP 10/325 TABLET PO PRN (11:08)
--- NOTE | 2018-04-15 13:29 | Discharge Summary ---
- NOTES TO OUTPATIENT PROVIDER Notes to Outpatient Provider: has outpt ortho follow up 04/24/18 with Marilee Scott. She requires aspirin 325 mg BID for ten days on dc for vte ppx. She should have pcp follow up in one week for hgb check Date of Encounter: 04/15/18 Time of Encounter: 09:30 - Discharge Diagnosis (1) Femoral fracture Priority: Primary Status: Acute Assessment and Plan: S/Pright distal femoral replacement hinged total knee replacement 04/10/[address] Cameron - PTOT evaluation--dc to rehab - Pain management prn - DVT prophylaxis sq heparin while inpt -required prbc transfusionpost op as per ortho -04/15 d/w ortho team Marilee Scott, pt is stable for dc to rehab, will cont on asa 325 mg bid for 10 days on dc for vte ppx, she has appt with her on 04/24 for follow up, stable knee xr obtianed prior to dc Qualifiers: Encounter type: initial encounter Femur location: shaft Fracture type: closed Fracture morphology: comminuted Fracture alignment: displaced Laterality: right Qualified Code(s): S72.351A - Displaced comminuted fracture of shaft of right femur, initial encounter for closed fracture (2) DVT prophylaxis Priority: Secondary Status: Acute Assessment and Plan: heparin SQ while inpt will dc on asa as above (3) Diabetes mellitus Priority: Secondary Status: Chronic Assessment and Plan: hx of DM2 non-insulin dependent A1c 5.5 Q6h accuchecks, low dose SSI resume home regimen and ada diet on dc Qualifiers: Diabetes mellitus type: type 2 Diabetes mellitus penitentiary insulin use: without terminal carman use Diabetes mellitus complication status: without complication Qualified Code(s): E11.9 - Type 2 diabetes mellitus without complications (4) Hx of essential hypertension Priority: Secondary Status: Acute Assessment and Plan: hx of HTN, well controlled Continue home medications (5) Anemia due to acute blood loss Priority: Secondary Status: Acute Assessment and Plan: Hgb 8.3. transfusion 04/14 per ortho hgb increased to 9.5 will require outpt hgb check in one week or sooner if develops symptoms of anemia (6) Hypokalemia Priority: Secondary Status: Resolved Assessment and Plan: Extra supplement given. Cont home dose potassium pills, encourage pt to increase intake. Hospital course: Ms. Lula Villafana is a 57 year old female who presented with acute fracture of the right femur. She had ortho surgery 04/10 and received prbc post operatively. Her medical comorbidities were managed as above without changes to home medication regimens. She is being discharged to [facility] for rehab in stable condition with outpt ortho fu. See assessment and plan for complete details of admission. Discharge discussed with: patient - Time Spent with Patient Total time spent providing and/or coordinating discharge services: Less than 30 minutes - Discharge Medications Prescriptions: Aspirin Enteric Coated [Aspirin EC] 325 mg PO BID 10 Days #1 tablet. HYDROcodone/Acet 7.5/325 mg [[place] 7.5-325 mg] 1 tab PO Q6H PRN 30 Days #4 tablet PRN Reason: Severe Pain Home Medications: Albuterol Sulfate [Ventolin Hfa] 2 puff IH Q4H PRN 04/09/18 [History] Allopurinol [Zyloprim] 300 mg PO DAILY 04/09/18 [History] Atorvastatin [Lipitor] 40 mg PO HS 04/09/18 [History] Bimatoprost [Lumigan] 1 drop OP QPM 04/09/18 [History] BuPROPion SR (12 HR) [Wellbutrin SR] 150 mg PO BID 04/09/18 [History] Chlorthalidone 50 mg PO QAM 04/09/18 [History] Cholecalciferol (D-3) [Vitamin D] 5,000 unit PO DAILY 04/09/18 [History] Cyclosporine [Restasis] 1 drop BOTH EYES BID 04/09/18 [History] Diclofenac Sodium [Voltaren] 100 gm TP PRN PRN 04/09/18 [History] Fluticasone/Salmeterol [Advair 250-50 Diskus] 1 puff IH BID 04/09/18 [History] Levothyroxine Sodium [Levoxyl] 88 mcg PO DAILY 04/09/18 [History] Linaclotide [Linzess] 290 mcg PO DAILY 04/09/18 [History] Metoprolol [Lopressor] 50 mg PO BID 04/09/18 [History] Mirabegron [Myrbetriq] 50 mg PO DAILY 04/09/18 [History] Mirtazapine [Remeron] 15 mg PO HS 04/09/18 [History] Montelukast [Singulair] 10 mg PO DAILY 04/09/18 [History] Nitroglycerin [Nitrostat] 0.4 mg SL Q5M PRN 04/09/18 [History] Nortriptyline HCl 150 mg PO DAILY 04/09/18 [History] Pantoprazole Sodium [Protonix] 40 mg PO DAILY 04/09/18 [History] Pioglitazone HCl [Actos] 30 mg PO DAILY 04/09/18 [History] Potassium Chloride [Klor-Con 10] 10 meq PO DAILY 04/09/18 [History] Pregabalin [Lyrica] 200 mg PO BID 04/09/18 [History] SUMAtriptan Succinate [Imitrex] 100 mg PO Q2H PRN 04/09/18 [History] SitaGLIPtin [Januvia] 100 mg PO DAILY 04/09/18 [History] Timolol Maleate 0.5% 1 drop OP BID 04/09/18 [History] Tizanidine HCl 8 mg PO TID PRN 04/09/18 [History] Topiramate [Topamax] 200 mg PO BID 04/09/18 [History] hydrOXYzine HCl [Hydroxyzine HCl] 50 mg PO Q8H PRN 04/09/18 [History] rOPINIRole [Requip] 1 mg PO HS 04/09/18 [History] Aspirin Enteric Coated [Aspirin EC] 325 mg PO BID 10 Days #1 tablet. 04/15/18 [Rx] Docusate [Colace] 100 mg PO BID capsule 04/15/18 [Rx] HYDROcodone/Acet 7.5/325 mg [[place] 7.5-325 mg] 1 tab PO Q6H PRN 30 Days #4 tablet 04/15/18 [Rx] MOM Conc [MILK OF MAGNESIA conc] 5 ml PO HS PRN ud.liq 04/15/18 [Rx] Ondansetron ODT [Zofran ODT] 4 mg SL Q6HR PRN tab.rapdis 04/15/18 [Rx] Allergies/Adverse Reactions: 3 Allergy/AdvReac Type Severity Reaction Status Date / Time Nefazodone [From Serzone] Allergy Rash Verified 12/09/16 14:49 Date of admission: 04/09/18 05:58 Primary care physician: Darek Teresa MD Consults: 04/09/18 06:28 Consult to Cardiac/Vascular Sonographer [CONS] Routine Reason for SW Consult: pt states safety concerns at home 04/10/18 22:14 Consult to Occupational Therapy [CONS] Routine Comment: Evaluate, develop and implement POC Reason for Consult: post knee surgery Does patient have active BEDREST order?: No Is patient medically & hemodynamically stable?: Yes Consult to Orthopedic Navigator [CONS] [CONS] Routine Consult to Physical Therapy [CONS] Routine Comment: Evaluate, develop and impliment POC Reason for Consult: post knee surgery Does patient have active BEDREST order?: No Is patient medically & hemodynamically stable?: Yes Consult to Cardiac/Vascular Sonographer [CONS] Routine Reason for SW Consult: post op joint replacement RT Post Op Consult [CONS] Routine Discharging clinician: Sandra Donald - Constitutional Vitals: Temp Pulse Resp BP Pulse Ox 98.4 F 86 16 107/73 98 04/15/18 12:15 04/15/18 12:15 04/15/18 12:15 04/15/18 12:15 04/15/18 12:15 Exam: General: awake, alert, appears stated age, obese HEENT:EOM intact, pupils equal, round, moist mucus membranes, normal conjunctiva Cardiovascular:regular rate and rhythm, normal S1 & S2, no rubs, murmurs or gallops. No JVD. no lower extremity edema Lungs:Normal breath sounds, no wheezes, or crackles. Normal respiratory effort Abdomen:Soft, non-tender, non-distended, + bowel sounds Extremities:right knee brace in place Neurological: AAOx3, CN grossly intact, sensation to light touch intact and equal in bl le Skin:Normal color, no rash, no pallor, no jaundice , right leg surgical dressing c/d/i, no hematoma on palapation, no ecchymosis - Patient Status Disposition: Transfer SNF Condition: Good Overall status at discharge: patient is not back to baseline - Discharge Instructions Follow Up With: Darek Teresa MD [Primary Care Provider] - Additional Instructions: Emilie Vincent office on 04/24/18 as scheduled - Diet and Activity Activity: increase activity as tolerated Diet: advance to your usual diet
--- NOTE | 2018-04-15 17:36 | Electrocardiograph Report ---
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
[2018-04-16 03:13] VITALS: BP 100/66
== END 2018-04-15 15:43 | DRG 470 ==
LOC: 3NENU 01:41 → EMEROOARM 01:41 → 3NENU 05:38 → SUATTDRO 05:58
PROVIDERS: ADMIT Family Medicine; ATTEND Internal Medicine

== ENCOUNTER 2018-07-01 16:45 | Inpatient (IN) ==
[2018-07-01 17:52] LABS: Hematocrit 34.3 % (35.3-44.9); Hemoglobin 10.2 g/dL (11.5-15.4); Immature Granulocytes % 0.2 % (0-4); Mean Corpuscular HGB Conc 29.7 g/dL (31.6-35.5); Mean Corpuscular Hemoglobin 29.4 pg (28.0-33.3); Mean Corpuscular Volume 98.8 fL (83.0-100.0); Platelet Count 114 K/mcL (140-400); Red Blood Count 3.47 M/mcL (3.82-4.97); Red Cell Distribution Width 15.9 % (11.5-14.5); Segmented Neutrophils % 70.1 %
[2018-07-01 17:53] LABS: Basophils % 0.7 %; Eosinophils # 0.4 K/mcL (0.0-0.6); Eosinophils % 6.4 %; Lymphocytes # 0.8 K/mcL (0.6-4.6); Lymphocytes % 15.4 %; Monocytes # 0.4 K/mcL (0.0-1.3); Monocytes % 7.2 %; Neutrophils # 3.8 K/mcL (1.6-8.9)
[2018-07-01 18:03] LABS: INR 1.1; Prothrombin Time 12.6 Seconds (9.4-12.1)
--- NOTE | 2018-07-01 18:04 | Emergency Department Note ---
Disposition Clinical Impression: Postoperative wound infection, Acute kidney injury Disposition: Admitted As Inpatient Condition: Good Time of Disposition: 20:08 Wound/Laceration HPI - General Chief Complaint: ED Wound/Laceration Stated Complaint: Sent from [facility] Office Time Seen by Provider: 07/01/18 16:50 Source: patient Mode of arrival: ambulatory Limitations: no limitations Nursing Notes Reviewed: Yes Vital Signs Reviewed: Yes - History of Present Illness HPI Narrative: 58-year-old female history of diabetes presents emergency department for wound infection. Patient reports of distal right femoral fracture requiring surgery several months ago April 10. Since then she is been in the nursing facility and has been dealing with wound infection from her surgical site. Her surgeon was Dr. Cameron. Patient states today she was seen at the wound clinic as he nursing facility felt the wound was not feeling well managed and require consultation. [facility] who sent her here for possible admission. Patient is scheduled in 2 days for wound debridement. She denies any other symptoms such as fever, cough, chest pain, shortness of breath or abdominal pain. She is currently nonambulatory. - Related Data Home Medications Medication Instructions Recorded Confirmed Albuterol Sulfate [Ventolin Hfa] 2 puff IH Q4H PRN 04/09/18 07/02/18 Allopurinol [Zyloprim] 300 mg PO DAILY 04/09/18 07/02/18 Atorvastatin [Lipitor] 40 mg PO HS 04/09/18 07/02/18 Bimatoprost [Lumigan] 1 drop OP QPM 04/09/18 07/02/18 BuPROPion SR (12 HR) [Wellbutrin 150 mg PO BID 04/09/18 04/09/18 SR] Chlorthalidone 50 mg PO QAM 04/09/18 07/02/18 Cholecalciferol (D-3) [Vitamin D] 5,000 unit PO DAILY 04/09/18 07/02/18 Cyclosporine [Restasis] 1 drop BOTH EYES BID 04/09/18 07/02/18 Diclofenac Sodium [Voltaren] 100 gm TP PRN PRN 04/09/18 07/02/18 Fluticasone/Salmeterol [Advair 1 puff IH BID 04/09/18 07/02/18 250-50 Diskus] Levothyroxine Sodium [Levoxyl] 88 mcg PO DAILY 04/09/18 07/02/18 Linaclotide [Linzess] 290 mcg PO DAILY 04/09/18 07/02/18 Metoprolol [Lopressor] 50 mg PO BID 04/09/18 07/02/18 Mirabegron [Myrbetriq] 50 mg PO DAILY 04/09/18 07/02/18 Mirtazapine [Remeron] 15 mg PO HS 04/09/18 07/02/18 Montelukast [Singulair] 10 mg PO DAILY 04/09/18 07/02/18 Nitroglycerin [Nitrostat] 0.4 mg SL Q5M PRN 04/09/18 07/02/18 Nortriptyline HCl 150 mg PO DAILY 04/09/18 04/09/18 Pantoprazole Sodium [Protonix] 40 mg PO DAILY 04/09/18 07/02/18 Pioglitazone HCl [Actos] 30 mg PO DAILY 04/09/18 07/02/18 Potassium Chloride [Klor-Con 10] 10 meq PO DAILY 04/09/18 07/02/18 Pregabalin [Lyrica] 200 mg PO BID 04/09/18 07/02/18 SUMAtriptan Succinate [Imitrex] 100 mg PO Q2H PRN 04/09/18 07/02/18 SitaGLIPtin [Januvia] 100 mg PO DAILY 04/09/18 07/02/18 Timolol Maleate 0.5% 1 drop OP BID 04/09/18 07/02/18 Tizanidine HCl 8 mg PO TID PRN 04/09/18 07/02/18 Topiramate [Topamax] 200 mg PO BID 04/09/18 07/02/18 hydrOXYzine HCl [Hydroxyzine HCl] 50 mg PO Q8H PRN 04/09/18 07/02/18 rOPINIRole [Requip] 1 mg PO HS 04/09/18 07/02/18 Solifenacin Succinate [Vesicare] 10 mg PO DAILY 07/02/18 07/02/18 Previous Rx's Medication Instructions Recorded Aspirin Enteric Coated [Aspirin EC] 325 mg PO BID 10 Days #1 tablet. 04/15/18 Docusate [Colace] 100 mg PO BID capsule 04/15/18 HYDROcodone/Acet 7.5/325 mg [[place] 1 tab PO Q6H PRN 30 Days #4 tablet 04/15/18 7.5-325 mg] MOM Conc [MILK OF MAGNESIA conc] 5 ml PO HS PRN ud.liq 04/15/18 Ondansetron ODT [Zofran ODT] 4 mg SL Q6HR PRN tab.rapdis 04/15/18 Allergies Allergy/AdvReac Type Severity Reaction Status Date / Time Nefazodone [From Serzone] Allergy Rash Verified 12/09/16 14:49 All systems ED: reviewed and negative except as stated. Review of Systems: As Per HPI Constitutional: Denies: fever, chills, weakness ENT ED: Denies: congestion Cardiovascular: Denies: chest pain Respiratory: Denies: cough, dyspnea Gastrointestinal: Denies: abdominal pain, nausea, vomiting Genitourinary: Denies: dysuria Musculoskeletal: Reports: arthralgia, myalgia. Denies: back pain, neck pain Integumentary: Reports: lesions. Denies: rash Neurological: Denies: weakness, numbness Past Medical History - Past Medical History Attestation: Yes The following information was validated with the patient. Source: patient Medical history: Reports: asthma, COPD, diabetes, fibromyalgia, hypertension, other Surgical history: Reports: appendectomy Psychiatric history: Reports: anxiety, depression - Social History Smoking Status: Never smoker Smokeless Tobacco Status: No Alcohol use: Reports: none Drug use: Reports: none Physical Exam - General Limitations: no limitations General appearance: alert, in no apparent distress, obese (Morbidly) - Head Head exam: atraumatic, normocephalic, normal inspection - Eye Eye exam: Present: normal appearance, PERRL, EOMI - ENT ENT exam: normal exam, normal oropharynx, mucous membranes moist - Neck Neck exam: Present: normal inspection, full ROM, trachea midline - Chest Chest inspection: Present: normal inspection, symmetric chest wall rise - Respiratory Respiratory exam: Present: normal lung sounds bilaterally. Absent: respiratory distress - Cardiovascular Cardiovascular exam: Present: regular rate, normal rhythm, normal heart sounds - Abdominal Exam Abdominal exam: Present: soft (Obese), Non-Tender. Absent: tenderness, distention, guarding, rebound, rigidity - Extremities Exam Extremities exam: Present: pedal edema (Bilateral symmetrical), other (Patient has a open purulent wound to her anterior right mid thigh approximately 2 cm with some surrounding erythema, she has surgical scar to her right knee from prior total knee replacement) - Neurological Exam Neurological exam: Present: alert, oriented X3 - Psychiatric Psychiatric exam: Present: normal affect, normal mood - Skin Skin exam: Present: other (Open wound to the right anterior thigh with purulent drainage, no crepitus or necrotic tissue) Course Course Narrative: Patient presents with ongoing postoperative wound from recent right distal femoral fracture with total knee replacement. Patient is a resident at [facility] and was recently referred to wound care year at [facility]. They had referred her to be evaluated by orthopedic surgery and possible IV antibiotics. Patient wound is purulent and erythematous concerning for infection. She is afebrile does not demonstrate any systemic symptoms. She also denies any chest pain or shortness of breath to consider ulnar embolism at this time. She is not hypoxic or tachycardic. She does not meet sepsis criteria. Will check basic labs including ESR. Her wound culture proximately last week grew pseudomonas. Will obtain blood cultures and administer Zosyn and vancomycin and touch base with orthopedic surgery. Patient will likely require admission - Reevaluation(s) Reevaluation #1: Patient does not demonstrate a significant leukocytosis. Hemoglobin stable. ESR mildly elevated 42. She appears to be and acute kidney injury as her creatinine level is significantly elevated above baseline. Patient will receive IV fluids. Orthopedic surgery has been consulted in the patient will be admitted for postoperative wound infection. - Consultations Consultation #1: Spoke to on-call therapeutic surgeon Dr. Rutledge who agrees with management and recommends to treat the infection based off wound culture. Since this is a patient of Dr. Cameron will notify his service. No other recommendations at this time. Time: 18:44 Consultation #2: Spoke with on-call hospitalist dang Anderson to admit for is operative wound infection and acute kidney injury. No further orders at this time Time: 20:08 Vital Signs Temperature 97.8 F 07/01/18 16:56 Pulse Rate 64 07/01/18 16:56 Respiratory Rate 20 07/01/18 16:56 Blood Pressure 147/101 07/01/18 16:56 O2 Sat by Pulse Oximetry 100 07/01/18 16:56 Temperature 98.4 F 07/01/18 23:51 Pulse Rate 74 07/01/18 23:51 Respiratory Rate 18 12/04/18 23:51 Blood Pressure 132/83 07/01/18 23:51 O2 Sat by Pulse Oximetry 91 07/01/18 23:51 Oxygen Delivery Oxygen Delivery Room Air Wound/Laceration - MDM Narrative Medical decision making narrative: Patient was discussed with my attending physician who agrees with ED management and final disposition. They independently evaluated the patient. Please refer to their attestation to this encounter for additional information. This note was generated by [employer] voice recognition software and as a result grammatical or spelling errors may occur using this program. - Medical Records Medical records reviewed: Yes I reviewed the patient's medical records. - Lab Data Lab results reviewed: Yes I reviewed the patient's lab results. Result diagrams: 07/01/18 17:42 07/02/18 00:23 Lab Results 07/01/18 07/01/18 07/01/18 Range/Units 17:42 17:42 17:42 WBC 5.5 (4.3-11.1) K/mcL RBC 3.47 L (3.82-4.97) M/mcL Hgb 10.2 L (11.5-15.4) g/dL Hct 34.3 L (35.3-44.9) % MCV 98.8 (83.0-100.0) fL MCH 29.4 (28.0-33.3) pg MCHC 29.7 L (31.6-35.5) g/dL RDW 15.9 H (11.5-14.5) % Plt Count 114 L (140-400) K/mcL MPV 11.0 (9.4-12.4) fL Immature Gran % 0.2 (0-4) % Seg Neutrophils % 70.1 % Lymphocytes % 15.4 % Monocytes % 7.2 % Eosinophils % 6.4 % Basophils % 0.7 % Neutrophils # 3.8 (1.6-8.9) K/mcL Lymphocytes # 0.8 (0.6-4.6) K/mcL Monocytes # 0.4 (0.0-1.3) K/mcL Eosinophils # 0.4 (0.0-0.6) K/mcL Basophils # 0.0 (0.0-0.2) K/mcL ESR (0-15) mm/hr PT 12.6 H (9.4-12.1) Seconds INR 1.1 APTT 36.3 H (26.0-36.0) Seconds Sodium 140 (136-145) mEq/L Potassium 4.3 (3.5-5.1) mEq/L Chloride 111 H (98-107) mEq/L Carbon Dioxide 25 (23-29) mEq/L BUN 47 H (8-23) mg/dL Creatinine 1.37 H (0.60-1.20) mg/dL Est GFR ( Amer) 48 L (> 60) Est GFR (Non-Af Amer) 39 L (> 60) BUN/Creatinine Ratio 34 H (6-26) Glucose 97 (70-105) mg/dL Calculated Osmolality 302 H (280-300) Calcium 9.0 (8.6-10.3) mg/dL Blood Type Antibody Screen Antibody Identification 07/01/18 07/01/18 Range/Units 17:42 18:00 WBC (4.3-11.1) K/mcL RBC (3.82-4.97) M/mcL Hgb (11.5-15.4) g/dL Hct (35.3-44.9) % MCV (83.0-100.0) fL MCH (28.0-33.3) pg MCHC (31.6-35.5) g/dL RDW (11.5-14.5) % Plt Count (140-400) K/mcL MPV (9.4-12.4) fL Immature Gran % (0-4) % Seg Neutrophils % % Lymphocytes % % Monocytes % % Eosinophils % % Basophils % % Neutrophils # (1.6-8.9) K/mcL Lymphocytes # (0.6-4.6) K/mcL Monocytes # (0.0-1.3) K/mcL Eosinophils # (0.0-0.6) K/mcL Basophils # (0.0-0.2) K/mcL ESR 42 H (0-15) mm/hr PT (9.4-12.1) Seconds INR APTT (26.0-36.0) Seconds Sodium (136-145) mEq/L Potassium (3.5-5.1) mEq/L Chloride (98-107) mEq/L Carbon Dioxide (23-29) mEq/L BUN (8-23) mg/dL Creatinine (0.60-1.20) mg/dL Est GFR ( Amer) (> 60) Est GFR (Non-Af Amer) (> 60) BUN/Creatinine Ratio (6-26) Glucose (70-105) mg/dL Calculated Osmolality (280-300) Calcium (8.6-10.3) mg/dL Blood Type O POSITIVE Antibody Screen POSITIVE Antibody Identification Anti-Jka Attestation Statement - Attestation Attestation: I, Francisco Fierro, examined this patient and my medical decision-making was reviewed with the FAMILY CASEWORKER/PA/Advanced Practice Nurse/Resident Physician. I agree with the documented findings, disposition and treatment plan as described except to the extent set forth below. 58-year-old female presents emergency Department with concerns of pain to the right lower extremity. Patient has a history of femur repair after a fall, multiple months ago. She has been treated for nonhealing wound to the right thigh over the past month. She was evaluated by Dr. Lane for wound care today who recommended evaluation by orthopedic physician. She spoke with the orthopedic PA who recommended admission to the hospital for debridement and aspiration and possible washout of the right knee. Patient was started on antibiotics in the emergency department. We spoke with the orthopedic physician on-call, Dr. Spears who agreed with the plan of action. Patient was given pain medications in the emergency department. She felt comfortable with the plan for admission to hospital.
[2018-07-01 18:06] LABS: Activated Partial Thrombo Time 36.3 Seconds (26.0-36.0)
[2018-07-01] MEDS ORDERED: Piperacillin/Tazobactam 3.375 GM in 0.9 % Sodium Chloride Mini Bag 100 ML IVPB ONE (18:08)
[2018-07-01 18:12] LABS: Potassium 4.3 mEq/L (3.5-5.1)
[2018-07-01] MEDS ORDERED: 0.9 % Sodium Chloride 1,000 ML IVC ONE ×2 (18:24→22:20)
[2018-07-01] MEDS ORDERED: *HR* FentaNYL (PF) 100 MCG/2 ML VIAL IVP ONE (20:38)
[2018-07-01] MEDS ORDERED: traMADol 50 MG TABLET PO PRN (22:20)
[2018-07-01] MEDS ORDERED: *HR* OxyCODONE Immed Rel 5 MG TABLET PO PRN (22:20)
[2018-07-01] MEDS ORDERED: Naloxone 0.4 MG/ML INJ IVP PRN (22:20)
[2018-07-01] MEDS ORDERED: Acetaminophen 325 MG TABLET PO PRN (22:20)
--- NOTE | 2018-07-01 22:50 | Internal Med History&Physical ---
<Austyn Camacho T - Last Filed: 07/02/18 01:29> Date of Encounter: 07/02/18 Time of Encounter: 22:50 Internal Medicine - H&P: HPI Chief complaint: wound infect s/p R femoral fracture Admitted From: Emergency Dept History of present illness: Ms. Lula Villafana is a 58 year old female presenting with wound infection s/p right femoral fracture and fixation. She had a right total knee replacement in 04/15 that has been painful and swollen since the surgery. She describes the right knee pain as a 10/10, constant, radiating from the incision site on her R thigh up to the R hip and down to the ankle. She states that her right leg has been swollen since the surgery. She is currently reporting chills with shaking, diaphoresis, diffuse myalgias causing her body to tense up. She denies having headache, n/v, fevers, SOB, abdominal pain, changes in urination, changes in bowel movements, flank tenderness. Patient has history of DM, HTN, COPID, fibromylgia, asthma, and morbid obesity. Past Med Surg Social Fam HX - Past Medical History Medical history: asthma, COPD, diabetes, fibromyalgia, hypertension, other Additional medical history: Tubal Psychiatric history: anxiety, depression - Past Surgical History Surgical History: appendectomy Additional surgical history: R TKR. CTR bilat. T&A - Social History Smoking Status: Former smoker Smokeless Tobacco Status: No Alcohol use: none Drug use: none - Family History Father Living Status: Age at : 55 Cause of : ND Hx Family Cardiac Disorders: Yes (ND) Hx Family Endocrine Disorder: Yes (DM) Internal Medicine - H&P: Meds Albuterol Sulfate [Ventolin Hfa] 2 puff IH Q4H PRN 04/09/18 [History] Allopurinol [Zyloprim] 300 mg PO DAILY 04/09/18 [History] Atorvastatin [Lipitor] 40 mg PO HS 04/09/18 [History] Bimatoprost [Lumigan] 1 drop OP QPM 04/09/18 [History] BuPROPion SR (12 HR) [Wellbutrin SR] 150 mg PO BID 04/09/18 [History] Chlorthalidone 50 mg PO QAM 04/09/18 [History] Cholecalciferol (D-3) [Vitamin D] 5,000 unit PO DAILY 04/09/18 [History] Cyclosporine [Restasis] 1 drop BOTH EYES BID 04/09/18 [History] Diclofenac Sodium [Voltaren] 100 gm TP PRN PRN 04/09/18 [History] Fluticasone/Salmeterol [Advair 250-50 Diskus] 1 puff IH BID 04/09/18 [History] Levothyroxine Sodium [Levoxyl] 88 mcg PO DAILY 04/09/18 [History] Linaclotide [Linzess] 290 mcg PO DAILY 04/09/18 [History] Metoprolol [Lopressor] 50 mg PO BID 04/09/18 [History] Mirabegron [Myrbetriq] 50 mg PO DAILY 04/09/18 [History] Mirtazapine [Remeron] 15 mg PO HS 04/09/18 [History] Montelukast [Singulair] 10 mg PO DAILY 04/09/18 [History] Nitroglycerin [Nitrostat] 0.4 mg SL Q5M PRN 04/09/18 [History] Nortriptyline HCl 150 mg PO DAILY 04/09/18 [History] Pantoprazole Sodium [Protonix] 40 mg PO DAILY 04/09/18 [History] Pioglitazone HCl [Actos] 30 mg PO DAILY 04/09/18 [History] Potassium Chloride [Klor-Con 10] 10 meq PO DAILY 04/09/18 [History] Pregabalin [Lyrica] 200 mg PO BID 04/09/18 [History] SUMAtriptan Succinate [Imitrex] 100 mg PO Q2H PRN 04/09/18 [History] SitaGLIPtin [Januvia] 100 mg PO DAILY 04/09/18 [History] Timolol Maleate 0.5% 1 drop OP BID 04/09/18 [History] Tizanidine HCl 8 mg PO TID PRN 04/09/18 [History] Topiramate [Topamax] 200 mg PO BID 04/09/18 [History] hydrOXYzine HCl [Hydroxyzine HCl] 50 mg PO Q8H PRN 04/09/18 [History] rOPINIRole [Requip] 1 mg PO HS 04/09/18 [History] Aspirin Enteric Coated [Aspirin EC] 325 mg PO BID 10 Days #1 tablet. 04/15/18 [Rx] Docusate [Colace] 100 mg PO BID capsule 04/15/18 [Rx] HYDROcodone/Acet 7.5/325 mg [[place] 7.5-325 mg] 1 tab PO Q6H PRN 30 Days #4 tablet 04/15/18 [Rx] MOM Conc [MILK OF MAGNESIA conc] 5 ml PO HS PRN ud.liq 04/15/18 [Rx] Ondansetron ODT [Zofran ODT] 4 mg SL Q6HR PRN tab.rapdis 04/15/18 [Rx] Solifenacin Succinate [Vesicare] 10 mg PO DAILY 07/02/18 [History] Allergy/AdvReac Type Severity Reaction Status Date / Time Nefazodone [From Serzone] Allergy Rash Verified 12/09/16 14:49 All Systems PM: A 10-system review of systems was performed and is negative for pertinent findings except as documented above in the HPI. - Constitutional Constitutional: chills, excessive sweating, fatigue, lethargy, night sweats, weakness - Cardiovascular Cardiovascular ROS IM: no chest pain, no dyspnea, no palpitations - Respiratory Respiratory: no cough, no dyspnea, no wheezing - Gastrointestinal Gastrointestinal: constipation (baseline), no abdominal pain - Constitutional Vitals: Temp Pulse Resp BP Pulse Ox 98.2 F 72 18 120/70 100 07/01/18 21:49 07/01/18 21:49 07/01/18 21:49 07/01/18 21:49 07/01/18 21:49 General appearance: Present: disheveled, A&O X 3, morbidly obese, severe distress, answers questions appropriately Exam: . - Head Head exam: Present: atraumatic, normal inspection - Eye Eye exam: Present: EOMI, normal appearance. Absent: conjuntiva pink - Neck Neck exam general surgery: Present: supple, trachea midline - Respiratory Respiratory exam: Present: CTAB. Absent: accessory muscle use, respiratory distress, wheezes - Cardiovascular Cardiovascular exam: Present: RRR, +S1, +S2 - GI/Abdominal GI/Abdominal exam: Absent: tenderness - Extremities Exam Extremities exam: Present: calf tenderness, tenderness Additional comments: Right thigh extremity tender to palpation especially around incision site - Expanded Lower Extremities Exam Upper Leg exam: Present: erythema, swelling, tenderness Knee exam: Present: erythema, swelling, tenderness Lower Leg exam: Present: erythema, tenderness - Incison Incision: Present: draining, red, swollen, inflamed, erythema, purulent, open - Neurological Exam Neurological exam: Present: alert, no focal deficits - Skin Skin exam: Present: dry, intact, warm Additional comments: normal except for R leg incision site: see LE exam Internal Med - H&P Results - Labs CBC & Chem 7: 07/01/18 17:42 07/02/18 00:23 Labs: Short CBC 07/01/18 Range/Units 17:42 WBC 5.5 (4.3-11.1) K/mcL Hgb 10.2 L (11.5-15.4) g/dL Hct 34.3 L (35.3-44.9) % Plt Count 114 L (140-400) K/mcL Neutrophils # 3.8 (1.6-8.9) K/mcL BMP 07/01/18 17:42 Sodium 140 Potassium 4.3 Chloride 111 H Carbon Dioxide 25 BUN 47 H Creatinine 1.37 H Glucose 97 Calcium 9.0 - Assessment and plan (1) Wound infection after surgery Current Visit: Yes Status: Acute Assessment and plan: 58 YO F presenting with a wound infection after total right knee replacement in March. Patient is reporting that pain is 10/10, diffuse across her R leg. Orthopedic consult already in place - CT Rt LE + CT pelvis ordered w/ contrast - Patient received 1 L of NS and is receiving another liter of NS - Patient's creatiine is 1.37 and GFR is 39 - spoke with radiology and they are okay with her receiving contrast but rec IVF - Patient is receiving dilaudid and oxy for pain - blood cultures ordered. - npo (2) DVT prophylaxis Current Visit: No Status: Acute Assessment and plan: heparin subcutaneous (3) Acute kidney injury Current Visit: Yes Status: Acute Assessment and plan: Patient present swith creatinine 1.37 and GFR 39. - Already received 1L of NS, will give her another liter. - Ordered CT LE with contrast - consulted radiology and they advised IVF to reduce risk of further kidney injury - Time Spent With Patient Total time spent is greater than 50% in coordination of care (as documented) at patient's floor/unit and/or counseling patient: <Tracie Murphy - Last Filed: 07/02/18 08:34> Date of Encounter: 07/01/18 Internal Medicine - H&P: HPI History of present illness: Ms. Lula Villafana is a 58 year old female All Systems PM: A 10-system review of systems was performed and is negative for pertinent findings except as documented above in the HPI. - Constitutional Vitals: Temp Pulse Resp BP Pulse Ox 98.2 F 78 16 114/65 95 07/02/18 06:49 07/02/18 06:49 07/02/18 08:01 07/02/18 06:49 07/02/18 08:01 Internal Med - H&P Results - Labs CBC & Chem 7: 07/02/18 04:26 07/02/18 04:26 Labs: Short CBC 07/01/18 07/02/18 Range/Units 17:42 04:26 WBC 5.5 8.5 D (4.3-11.1) K/mcL Hgb 10.2 L 10.0 L (11.5-15.4) g/dL Hct 34.3 L 33.5 L (35.3-44.9) % Plt Count 114 L 141 (140-400) K/mcL Neutrophils # 3.8 6.7 (1.6-8.9) K/mcL BMP 07/01/18 07/02/18 07/02/18 17:42 00:23 04:26 Sodium 140 140 141 Potassium 4.3 4.5 4.2 Chloride 111 H 113 H 113 H Carbon Dioxide 25 22 L 22 L BUN 47 H 43 H 40 H Creatinine 1.37 H 1.35 H 1.22 H Glucose 97 141 H 108 H Calcium 9.0 8.7 8.7 Liver Function 07/02/18 Range/Units 04:26 Total Bilirubin 0.4 (0.3-1.0) mg/dL AST 13 (13-39) Units/L ALT 12 (7-52) Units/L Alkaline Phosphatase 108 H (34-104) Units/L Albumin 3.7 (3.5-5.7) g/dL - Impressions ITS Impressions Lower Extremity CT 07/02/18 01:14 IMPRESSION: Extensive soft tissue edema with no definite evidence for abscess or osteomyelitis though evaluation is quite limited by streak artifact from the knee arthroplasty device. Possible 4.3 cm left ovarian cyst. Pelvic ultrasound is recommended for further evaluation. D/ / Mal Guadalupe MD / Mal Guadalupe MD Interpreting Provider: Mal Guadalupe MD Pelvis CT 07/02/18 01:14 IMPRESSION: Extensive soft tissue edema with no definite evidence for abscess or osteomyelitis though evaluation is quite limited by streak artifact from the knee arthroplasty device. Possible 4.3 cm left ovarian cyst. Pelvic ultrasound is recommended for further evaluation. D/ / Mal Guadalupe MD / Mal Guadalupe MD Interpreting Provider: Mal Guadalupe MD - Assessment and plan (1) DVT prophylaxis Current Visit: No Status: Acute (2) Wound infection after surgery Current Visit: Yes Status: Acute (3) Acute kidney injury Current Visit: Yes Status: Acute - Time Spent With Patient Total time spent is greater than 50% in coordination of care (as documented) at patient's floor/unit and/or counseling patient: - Attending Attestation I performed a history and physical examination of the patient and discussed his management with the resident. I reviewed the resident's note and agree with the documented findings and plan of care.
[2018-07-02 00:55] LABS: Calcium 8.7 mg/dL (8.6-10.3); Potassium 4.5 mEq/L (3.5-5.1)
[2018-07-02] MEDS ORDERED: Isovue-370 500 ML INFUS..BTL IV ONE (01:14)
[2018-07-02] MEDS: *HR* HYDROmorphone 2 MG TABLET PO PRN ×3 (01:33→17:34)
[2018-07-02] MEDS ORDERED: *HR* HYDROmorphone 2 MG TABLET PO ONE (03:42)
[2018-07-02] MEDS ORDERED: Naloxone 0.4 MG/ML INJ IVP PRN (03:47)
[2018-07-02] MEDS ORDERED: MOM Conc 10 ML UD.LIQ PO PRN (03:48)
[2018-07-02] MEDS ORDERED: Diclofenac Sodium [Voltaren] TP PRN (03:48)
[2018-07-02] MEDS ORDERED: SUMAtriptan succinate 50 MG TABLET PO PRN (03:48)
[2018-07-02] MEDS ORDERED: Ondansetron ODT 4 MG TAB.RAPDIS SL PRN (03:48)
[2018-07-02] MEDS ORDERED: hydrOXYzine pamoate 25 MG CAPSULE PO PRN (03:48)
[2018-07-02 05:14] LABS: Basophils % 0.5 %; Eosinophils # 0.5 K/mcL (0.0-0.6); Hematocrit 33.5 % (35.3-44.9); Immature Granulocytes % 0.1 % (0-4); Lymphocytes # 0.8 K/mcL (0.6-4.6); Lymphocytes % 9.2 %; Mean Corpuscular HGB Conc 29.9 g/dL (31.6-35.5); Mean Corpuscular Hemoglobin 29.2 pg (28.0-33.3); Mean Platelet Volume 11.5 fL (9.4-12.4); Monocytes # 0.5 K/mcL (0.0-1.3); Monocytes % 5.5 %; Neutrophils # 6.7 K/mcL (1.6-8.9); Platelet Count 141 K/mcL (140-400); Red Blood Count 3.42 M/mcL (3.82-4.97); Segmented Neutrophils % 78.7 %
[2018-07-02 05:31] LABS: Albumin 3.7 g/dL (3.5-5.7); Bilirubin,Total 0.4 mg/dL (0.3-1.0); Calcium 8.7 mg/dL (8.6-10.3); Globulin 3.7 g/dL (2.4-3.5); Potassium 4.2 mEq/L (3.5-5.1); Total Protein 7.4 g/dL (6.4-8.9)
[2018-07-02] MEDS: PROTONIX 40MG PO SCH (06:58)
[2018-07-02] MEDS: *HR* Heparin 5,000 UNIT/ML VIAL SQ SCH ×2 (06:58→17:34)
[2018-07-02] MEDS: Budesonide/Formoterol 80/4.5 MDI IH SCH ×2 (08:01→22:45)
--- NOTE | 2018-07-02 08:22 | Orthopedics Progress Note ---
Date of Encounter: 07/02/18 Time of Encounter: 08:21 Subjective Interval history: Patient seen this morning open wound right leg, CT scan does not show communication intra-articular. Wound sterilely packed, plan for wide excision wound closure tomorrow. We reviewed the risks and benefits as well as recovery. All questions were answered. The patient agreed to this treatment plan and acknowledged an understanding of the treatment plan as described. Objective Vital signs: Vital Signs Temp Pulse Resp BP Pulse Ox 07/02/18 06:49 98.2 F 78 18 114/65 92 07/02/18 05:00 98.3 F 75 18 100/63 90 07/01/18 23:51 98.4 F 74 18 132/83 91 07/01/18 21:49 98.2 F 72 18 120/70 100 07/01/18 20:30 97.8 F 20 147/99 07/01/18 18:01 97.8 F 64 20 147/101 100 07/01/18 16:56 97.8 F 64 20 147/101 100 Intake and Output 07/01/18 07/02/18 07/02/18 23:59 07:59 15:59 Intake Total 1100 / 1100 200 / 200 Output Total 900 / 900 550 / 550 Balance 200 / 200 -350 / -350 Intake: IV Fluids 1100 / 1100 200 / 200 0.9 % Sodium Chloride 1,000 ML 1000 / 1000 200 / 200 @ 100 mls/hr IVC .Q10H ONE Rx#: [id number] Zosyn 3.375 GM In 0.9 % Sodium 100 / 100 Chloride (Mini-Bag +) 100 ML @ 25 mls/hr IVPB ONCE ONE Rx#: [id number] Output: Catheter 900 / 900 550 / 550 Urethral (Chiu) 900 / 900 Other: Weight 143.336 kg Blood Glucose* 116 - Labs CBC & BMP: 07/02/18 04:26 07/02/18 04:26 Labs: Abnormal lab results RBC 3.42 M/mcL (3.82-4.97) L 07/02/18 04:26 Hgb 10.0 g/dL (11.5-15.4) L 07/02/18 04:26 Hct 33.5 % (35.3-44.9) L 07/02/18 04:26 MCHC 29.9 g/dL (31.6-35.5) L 07/02/18 04:26 RDW 16.0 % (11.5-14.5) H 07/02/18 04:26 ESR 42 mm/hr (0-15) H 07/01/18 18:00 PT 12.6 Seconds (9.4-12.1) H 07/01/18 17:42 APTT 36.3 Seconds (26.0-36.0) H 07/01/18 17:42 Chloride 113 mEq/L (98-107) H 07/02/18 04:26 Carbon Dioxide 22 mEq/L (23-29) L 07/02/18 04:26 BUN 40 mg/dL (8-23) H 07/02/18 04:26 Creatinine 1.22 mg/dL (0.60-1.20) H 07/02/18 04:26 Est GFR ( Amer) 55 (> 60) L 07/02/18 04:26 Est GFR (Non-Af Amer) 45 (> 60) L 07/02/18 04:26 BUN/Creatinine Ratio 33 (6-26) H 07/02/18 04:26 Glucose 108 mg/dL (70-105) H 07/02/18 04:26 Calculated Osmolality 302 (280-300) H 07/02/18 04:26 Alkaline Phosphatase 108 Units/L (34-104) H 07/02/18 04:26 Globulin 3.7 g/dL (2.4-3.5) H 07/02/18 04:26 Albumin/Globulin Ratio 1.0 (1.1-2.2) L 07/02/18 04:26 Consult Discharge Plan - Plan Referrals: Darek Teresa MD [Primary Care Provider] -
[2018-07-02] MEDS: Piperacillin/Tazobactam 3.375 GM in 0.9 % Sodium Chloride Mini Bag 100 ML IVPB SCH ×2 (09:34→17:39)
[2018-07-02] MEDS: Cyclosporine [Restasis] OP SCH ×2 (09:37→21:04)
[2018-07-02] MEDS: tiZANidine 4 MG TABLET PO PRN ×2 (09:37→21:03)
[2018-07-02] MEDS: Mirabegron [Myrbetriq] 50 MG PO SCH (09:37)
[2018-07-02] MEDS: VESICARE 10MG PO SCH (09:37)
[2018-07-02] MEDS: Pregabalin 50 MG CAPSULE PO SCH ×2 (09:41→21:03)
[2018-07-02] MEDS: Aspirin Enteric Coated 325 MG Tablet PO SCH ×2 (10:27→21:03)
[2018-07-02] MEDS: Cholecalciferol (D-3) 1,000 UNIT TABLET PO SCH (10:28)
[2018-07-02] MEDS: Topiramate 100 MG TABLET PO SCH ×2 (10:28→21:03)
--- NOTE | 2018-07-02 10:31 | Event Note ---
Date of Encounter: 07/02/18 Time of Encounter: 10:15 Dr. Cameron reviewed procedure with patient this morning for right knee wound closure planned for tomorrow 07/03/18. Consent is signed and in chart. Iodoform packing changed this morning. NPO after midnight tonight. Discussed case with Nicolette Scott PA-C who saw patient in office yesterday. Will order UA with cx due to her history of urinary incontinence.
--- NOTE | 2018-07-02 11:23 | Internal Med Progress Note ---
<Julio Wood D - Last Filed: 07/02/18 14:52> Hospitalist Progress Note - Encounter Date of Encounter: 07/02/18 Time of Encounter: 10:00 - Subjective Interval History: Ms. Lula Villafana is a 58 year old female seen hospital day 2 for non-healing wound on R leg status post total R knee replacement 04/15. She notes today there is no decrease in her pain, she feels that she is radiating heat, and notes that she has constant pain in her right leg from her toes to her hip that is rated 10/10, nothing has made pain better, movement makes worse. CT with contrast showed soft tissue edema, no abcess or osteomyelitis, incidental finding of possible ovarian cyst. Orthopedics is planning a wide excision wound closure tomorrow. Patient admits palpitations, abdominal pressure, some flank tenderness, constipation baseline, joint pain and muscle ache, and denies headache, fever, chills, chest pain, chest pressure, shortness of breath, cough, wheeze, abdominal pain, nausea, vomiting, urinary changes, bowel changes, and blood in stool. - Exam Vitals: Temp Pulse Resp BP Pulse Ox 98.2 F 78 16 114/65 95 07/02/18 06:49 07/02/18 06:49 07/02/18 08:01 07/02/18 06:49 07/02/18 08:01 Exam: General: awake, alert, oriented, in visible distress HEENT: normocephalic, atraumatic CV: normal rate and rhythm, systolic murmur indicating possible Aortic Stenosis Resp: bilaterally clear to auscultation, no wheezes Abd: soft, nondistended, normal bowel sounds Extremities: bilateral nonpitting edema, R total knee replacement incision with 3cm x 5cm x 2cm wound with purulent discharge. Neuro: A&Ox3, no focal deficits - Assessment and Plan (1) Wound infection after surgery Current Visit: Yes Status: Acute Assessment and Plan: Patient reports no change from yesterday, 10/10 constant pain in entire R LE from hip to toes that nothing alleviates and is aggravated by movement. CT with contrast shows soft tissue edema with no abcess or osteomyelitis and possible incidental ovarian cyst. Orthopedics planned wide excision wound closure tomorrow. Echo and cardiology consult planned for pre-operative anesthesia risk. (2) Anemia Current Visit: Yes Status: Acute Assessment and Plan: Hgb 10.0 07/02/18, 10.2 07/01/18 Likely iron deficiency post total knee replacement 04/15. Supplement Ferrous Sulfate and monitor. (3) Acute kidney injury Current Visit: Yes Status: Acute Assessment and Plan: Creatinine 1.22 at 0426 07/02/18, down from 1.35 at 0023 07/02/18. eGFR of 45 at 0426 07/02/18, up from 40 at 0023 07/02/18. Patient received IV contrast for CT yesterday, monitoring kidney function. Patient received IV fluids yesterday and today. (4) DVT prophylaxis Current Visit: No Status: Acute Assessment and Plan: Subcutaneous heparin - Time Spent with Patient Total time spent is greater than 50% in coordination of care (as documented) at patient's floor/unit and/or counseling patient: Internal Medicine: Result - Labs CBC & Chem 7: 07/02/18 04:26 07/02/18 04:26 Labs: Short CBC 07/01/18 07/02/18 Range/Units 17:42 04:26 WBC 5.5 8.5 D (4.3-11.1) K/mcL Hgb 10.2 L 10.0 L (11.5-15.4) g/dL Hct 34.3 L 33.5 L (35.3-44.9) % Plt Count 114 L 141 (140-400) K/mcL Neutrophils # 3.8 6.7 (1.6-8.9) K/mcL BMP 07/01/18 07/02/18 07/02/18 17:42 00:23 04:26 Sodium 140 140 141 Potassium 4.3 4.5 4.2 Chloride 111 H 113 H 113 H Carbon Dioxide 25 22 L 22 L BUN 47 H 43 H 40 H Creatinine 1.37 H 1.35 H 1.22 H Glucose 97 141 H 108 H Calcium 9.0 8.7 8.7 Liver Function 07/02/18 Range/Units 04:26 Total Bilirubin 0.4 (0.3-1.0) mg/dL AST 13 (13-39) Units/L ALT 12 (7-52) Units/L Alkaline Phosphatase 108 H (34-104) Units/L Albumin 3.7 (3.5-5.7) g/dL - ABG Interpretation ABG results: PT/INR, D-dimer PT 12.6 Seconds (9.4-12.1) H 07/01/18 17:42 - Impressions Impressions Lower Extremity CT 07/02/18 01:14 IMPRESSION: Extensive soft tissue edema with no definite evidence for abscess or osteomyelitis though evaluation is quite limited by streak artifact from the knee arthroplasty device. Possible 4.3 cm left ovarian cyst. Pelvic ultrasound is recommended for further evaluation. D/ / Mal Guadalupe MD / Mal Guadalupe MD Interpreting Provider: Mal Guadalupe MD Pelvis CT 07/02/18 01:14 IMPRESSION: Extensive soft tissue edema with no definite evidence for abscess or osteomyelitis though evaluation is quite limited by streak artifact from the knee arthroplasty device. Possible 4.3 cm left ovarian cyst. Pelvic ultrasound is recommended for further evaluation. D/ / Mal Guadalupe MD / Mal Guadalupe MD Interpreting Provider: Mal Guadalupe MD Consult Discharge Plan - Plan Referrals: Darek Teresa MD [Primary Care Provider] - <Karthik Gonzalez - Last Filed: 07/02/18 19:23> Hospitalist Progress Note - Encounter Date of Encounter: 07/02/18 - Exam Vitals: Temp Pulse Resp BP Pulse Ox 98.3 F 66 17 109/72 97 07/02/18 18:26 07/02/18 18:26 07/02/18 18:26 07/02/18 18:26 07/02/18 18:26 - Assessment and Plan (1) DVT prophylaxis Current Visit: No Status: Acute (2) Wound infection after surgery Current Visit: Yes Status: Acute (3) Acute kidney injury Current Visit: Yes Status: Acute (4) Anemia Current Visit: Yes Status: Acute (5) Diabetes mellitus Current Visit: No Status: Chronic (6) Hypertension Current Visit: Yes Status: Chronic (7) Morbid obesity with BMI of 50.0-59.9, adult Current Visit: Yes Status: Chronic - Time Spent with Patient Total time spent is greater than 50% in coordination of care (as documented) at patient's floor/unit and/or counseling patient: Internal Medicine: Result - Labs CBC & Chem 7: 07/02/18 04:26 07/02/18 04:26 Labs: Short CBC 07/02/18 Range/Units 04:26 WBC 8.5 D (4.3-11.1) K/mcL Hgb 10.0 L (11.5-15.4) g/dL Hct 33.5 L (35.3-44.9) % Plt Count 141 (140-400) K/mcL Neutrophils # 6.7 (1.6-8.9) K/mcL BMP 07/02/18 07/02/18 00:23 04:26 Sodium 140 141 Potassium 4.5 4.2 Chloride 113 H 113 H Carbon Dioxide 22 L 22 L BUN 43 H 40 H Creatinine 1.35 H 1.22 H Glucose 141 H 108 H Calcium 8.7 8.7 Liver Function 07/02/18 Range/Units 04:26 Total Bilirubin 0.4 (0.3-1.0) mg/dL AST 13 (13-39) Units/L ALT 12 (7-52) Units/L Alkaline Phosphatase 108 H (34-104) Units/L Albumin 3.7 (3.5-5.7) g/dL Urine 07/02/18 Range/Units 12:10 Urine Color Yellow (Yellow) Urine Clarity Clear (Clear) Urine pH 6.5 (5.0-8.0) pH Units Ur Specific [place] 1.015 (1.010-1.025) Urine Protein 100 H (Neg-Trace) mg/dL Urine Glucose (UA) Normal (Normal) mg/dL - ABG Interpretation ABG results: PT/INR, D-dimer PT 12.6 Seconds (9.4-12.1) H 07/01/18 17:42 - Impressions Impressions Lower Extremity CT 07/02/18 01:14 IMPRESSION: Extensive soft tissue edema with no definite evidence for abscess or osteomyelitis though evaluation is quite limited by streak artifact from the knee arthroplasty device. Possible 4.3 cm left ovarian cyst. Pelvic ultrasound is recommended for further evaluation. D/ / Mal Guadalupe MD / Mal Guadalupe MD Interpreting Provider: Mal Guadalupe MD Pelvis CT 07/02/18 01:14 IMPRESSION: Extensive soft tissue edema with no definite evidence for abscess or osteomyelitis though evaluation is quite limited by streak artifact from the knee arthroplasty device. Possible 4.3 cm left ovarian cyst. Pelvic ultrasound is recommended for further evaluation. D/ / Mal Guadalupe MD / Mal Guadalupe MD Interpreting Provider: Mal Guadalupe MD - Attending Attestation The history, physical exam, and medical decision making was performed by the medical student either while I was physically present and actively involved or I personally re-performed the exam and medical decision making. I have verified the accuracy of the medical student's documentation with regards to the history, physical exam findings, and medical decision making on 07/02/18. Ms Cotton is currently admitted for non healing wound on R leg. She remains moderate to high risk due to potential for worsening clinical status. Ms Cotton is doing OK. Wound is packed and has dressing. No fever or chills. No CP. To go to OR tomorrow. Exam alert Comfortable Mucus membranes dry Heart not tachy No wheeze abd soft Dressing intact. I/P 1. Nonhealing wound R knee - to go to OR tomorrow. Pt very vague on cardiac history. Will ask cardiology for input prior to surgery. 2. Morbid obesity - chronic issue. 3. Anemia - most likely related to previous surgery and chronic disease 4. Recent R TKA. Further diagnoses and plan as above. <Karthik Gonzalez - Last Filed: 07/02/18 19:23> (4) Anemia Qualifiers: Anemia type: iron deficiency Iron deficiency anemia type: other iron defic iency Qualified Code(s): D50.8 - Other iron deficiency anemias (5) Diabetes mellitus Qualifiers: Diabetes mellitus type: type 2 Diabetes mellitus care home insulin use: without care home use Diabetes mellitus complication status: without complication Qualified Code(s): E11.9 - Type 2 diabetes mellitus without complications (6) Hypertension Qualifiers: Hypertension type: essential hypertension Qualified Code(s): I10 - Essential (primary) hypertension
[2018-07-02 12:20] LABS: Bilirubin,Urine Negative (Negative); Blood,Urine Moderate (Negative); Clarity,Urine Clear (Clear); Color,Urine Yellow (Yellow); Glucose,Urine (UA) Normal (Normal); Ketones,Urine Negative (Negative); Leukocyte Esterase,Urine Small (Negative); Nitrite,Urine Negative (Negative); PH,Urine 6.5 pH Units (5.0-8.0); Protein,Urine 100 mg/dL (Neg-Trace); Specific Gravity,Urine 1.015 (1.010-1.025); Urobilinogen,Urine Normal (Normal)
[2018-07-02 12:22] LABS: Bacteria,Urine None Seen per hpf (None-Few); Hyaline Casts,Urine None Seen per lpf (None-Few); RBC,Urine 50-100 per hpf (0-3); Squamous Epithelial Cell,Urine Many per lpf (None-Few); WBC,Urine 30-50 per hpf (0-3)
--- NOTE | 2018-07-02 13:30 | Cardiology Consult Note ---
<Ghislaine Cerda Ade - Last Filed: 07/02/18 13:27> Date of Encounter: 07/02/18 Time of Encounter: 13:00 Assessment and Plan (1) Pre-operative cardiovascular examination Current Visit: Yes Status: Acute Preoperative CV examination requested prior to closure of right knee non-healing surgical wound--planned for 07/03/18. Hx of CAD per [facility] in 2005--small vessel CAD not amendable to PCI (80% diagnonal); otherwise non-obstructive CAD. 2-day nuclear stress test 05/2017: perfusion imagining negative for ischemia or infarct, gated EF=75% TTE 05/2017: LVEF 60%, moderate LVDD, normal RV structure and function, moderately dilated LA, mild TR, mild PH, normal wall motion She denies chest pain/discomfort; describes chronic dyspnea--non compliant with CPAP. Patient is not physically active, very sedentary d/t severe right knee pain. Obtain ECG now, would recommend obtaining TTE to evaluate structure and function. Continue asa and BB in the eder-operative period. If no significant findings or abnormalities on TTE/ECG, patient is an acceptable CV risk candidate for orthopedic procedure. Will further discuss with Dr. Zelaya. (2) Nonhealing surgical wound Current Visit: Yes Status: Chronic s/p right total knee replacement in March 2018. Plan for closure of wound tomorrow presumably under general anesthesia in AM. Qualifiers: Encounter type: sequela Qualified Code(s): T81.89XS - Other complications of procedures, not elsewhere classified, sequela (3) Acute kidney injury Current Visit: Yes Status: Acute Mgmt per primary service. Discussion w patient/family: The assessment and plan as outlined above was discussed with the patient and/or family members who expressed understanding and agreement. All questions were answered. Thank you for involving us in the care of your patient. Please call with any questions. The patient will be discussed and reviewed with Dr. Zelaya; changes to be made accordingly. History of Present Illness Consult date: 07/02/18 Requesting physician: Karthik Gonzalez Consult reason: Preoperative CV examination Chief complaint: Nonhealing right knee wound/pain History of present illness: Ms. Lula Villafana is a 58 year old female with PMHx significant for morbid obesity, ISIDRO (non compliant with CPAP), CAD, DMII, and HLD who presented to [facility] due to non-healing right knee wound s/p total knee replacement in March. Patient reports that surgical incision has never healed; currently being packed with iodoform dressing with plans for surgical closure of wound in AM, 07/03/18. Cardiology consulted for pre-operative CV examination. Of note, pre-operative CV examination not recommended/requested prior to total knee replacement in March. Per labs, she was also noted to have CHRISTIANO upon presentation--previously kidney function has been normal. CV history significant for diastolic CHF, HLD, and CAD. She underwent LHC in 2005 (per [facility] records) which demonstrated small vessel CAD not amendable to PCI (40% pLAD, 80% diagonal, 65% mLCx, and 35% OM1). Last ischemic evaluation May 2017 (non-exercise nuclear stress, 2-day) which was negative for ischemia or infarct and most TTE shows preserved LVEF. She denies any chest pain/discomfort or angina; she does describe chronic shortness of breath and lower extremity edema. She is not physically active and is primarily chair/bed bound due to severe right knee pain. Past Med Surg Social Fam HX - Past Medical History Attestation: Yes The following information was validated with the patient. Source: patient, old records reviewed Medical history: asthma, COPD, diabetes, fibromyalgia, hypertension, other Additional medical history: Tubal Psychiatric history: anxiety, depression - Past Surgical History Surgical History: appendectomy Additional surgical history: R TKR. CTR bilat. T&A - Social History Smoking Status: Never smoker Smokeless Tobacco Status: No Alcohol use: none Drug use: none - Family History Father Living Status: Age at : 55 Cause of : CT Hx Family Cardiac Disorders: Yes (CT) Hx Family Endocrine Disorder: Yes (DM) Mother Living Status: Still Living Hx Family Respiratory Disorders: Yes (COPD) Medications and Allergies Albuterol Sulfate [Ventolin Hfa] 2 puff IH Q4H PRN 04/09/18 [History] Allopurinol [Zyloprim] 300 mg PO DAILY 04/09/18 [History] Atorvastatin [Lipitor] 40 mg PO HS 04/09/18 [History] Bimatoprost [Lumigan] 1 drop OP QPM 04/09/18 [History] BuPROPion SR (12 HR) [Wellbutrin SR] 150 mg PO BID 04/09/18 [History] Chlorthalidone 50 mg PO QAM 04/09/18 [History] Cholecalciferol (D-3) [Vitamin D] 5,000 unit PO DAILY 04/09/18 [History] Cyclosporine [Restasis] 1 drop BOTH EYES BID 04/09/18 [History] Diclofenac Sodium [Voltaren] 100 gm TP PRN PRN 04/09/18 [History] Fluticasone/Salmeterol [Advair 250-50 Diskus] 1 puff IH BID 04/09/18 [History] Levothyroxine Sodium [Levoxyl] 88 mcg PO DAILY 04/09/18 [History] Linaclotide [Linzess] 290 mcg PO DAILY 04/09/18 [History] Metoprolol [Lopressor] 50 mg PO BID 04/09/18 [History] Mirabegron [Myrbetriq] 50 mg PO DAILY 04/09/18 [History] Mirtazapine [Remeron] 15 mg PO HS 04/09/18 [History] Montelukast [Singulair] 10 mg PO DAILY 04/09/18 [History] Nitroglycerin [Nitrostat] 0.4 mg SL Q5M PRN 04/09/18 [History] Nortriptyline HCl 150 mg PO DAILY 04/09/18 [History] Pantoprazole Sodium [Protonix] 40 mg PO DAILY 04/09/18 [History] Pioglitazone HCl [Actos] 30 mg PO DAILY 04/09/18 [History] Potassium Chloride [Klor-Con 10] 10 meq PO DAILY 04/09/18 [History] Pregabalin [Lyrica] 200 mg PO BID 04/09/18 [History] SUMAtriptan Succinate [Imitrex] 100 mg PO Q2H PRN 04/09/18 [History] SitaGLIPtin [Januvia] 100 mg PO DAILY 04/09/18 [History] Timolol Maleate 0.5% 1 drop OP BID 04/09/18 [History] Tizanidine HCl 8 mg PO TID PRN 04/09/18 [History] Topiramate [Topamax] 200 mg PO BID 04/09/18 [History] hydrOXYzine HCl [Hydroxyzine HCl] 50 mg PO Q8H PRN 04/09/18 [History] rOPINIRole [Requip] 1 mg PO HS 04/09/18 [History] Aspirin Enteric Coated [Aspirin EC] 325 mg PO BID 10 Days #1 tablet. 04/15/18 [Rx] Docusate [Colace] 100 mg PO BID capsule 04/15/18 [Rx] HYDROcodone/Acet 7.5/325 mg [[place] 7.5-325 mg] 1 tab PO Q6H PRN 30 Days #4 tablet 04/15/18 [Rx] MOM Conc [MILK OF MAGNESIA conc] 5 ml PO HS PRN ud.liq 04/15/18 [Rx] Ondansetron ODT [Zofran ODT] 4 mg SL Q6HR PRN tab.rapdis 04/15/18 [Rx] Solifenacin Succinate [Vesicare] 10 mg PO DAILY 07/02/18 [History] Allergy/AdvReac Type Severity Reaction Status Date / Time Nefazodone [From Serzone] Allergy Rash Verified 12/09/16 14:49 All Systems Review: The remainder of the systems were reviewed and are negative - Cardiovascular Cardiovascular: as per HPI Physical Examination Vital Signs, Last 4 Hours Temp Pulse Resp BP Pulse Ox 07/02/18 11:31 98.2 F 56 18 106/66 95 General: Conversant, Other (morbidly obese) HEENT: Atraumatic, Normocephaly Cardiac: Reg Rate and Rhythm, Normal S1 and S2 Lungs: Other (decreased) Neuro: Alert and responsive, No focal deficits noted Abdomen: Other (large, obese) Skin: Other (significant erythemia to right knee) Musculoskeletal: No Chest Wall Tenderness Extremities: Other (Bilateral lower extremity edema, non-pitting ) Results 07/02/18 04:26 07/02/18 04:26 Lab Results 07/01/18 07/01/18 07/01/18 17:42 17:42 17:42 WBC 5.5 Hgb 10.2 L Hct 34.3 L Plt Count 114 L INR 1.1 APTT 36.3 H Sodium 140 Potassium 4.3 Chloride 111 H Carbon Dioxide 25 BUN 47 H Creatinine 1.37 H Glucose 97 Calcium 9.0 Total Bilirubin AST ALT Alkaline Phosphatase 07/02/18 07/02/18 07/02/18 00:23 04:26 04:26 WBC 8.5 D Hgb 10.0 L Hct 33.5 L Plt Count 141 INR APTT Sodium 140 141 Potassium 4.5 4.2 Chloride 113 H 113 H Carbon Dioxide 22 L 22 L BUN 43 H 40 H Creatinine 1.35 H 1.22 H Glucose 141 H 108 H Calcium 8.7 8.7 Total Bilirubin 0.4 AST 13 ALT 12 Alkaline Phosphatase 108 H Active Medications Acetaminophen (Tylenol) 650 mg PO Q6HR PRN PRN Reason: Mild Pain/Fever Stop: 12/31/18 22:21 Albuterol Sulfate (Albuterol Inhaler) 2 puff IH Q4H PRN PRN Reason: Dyspnea Stop: 01/01/19 03:49 Aspirin (Aspirin Ec) 325 mg PO BID [facility] Stop: 01/01/19 09:01 Last Admin: 07/02/18 10:27 Dose: 325 mg Atorvastatin Calcium (Lipitor) 40 mg PO HS [facility] Stop: 01/01/19 21:01 Budesonide/Formoterol Fumarate (Symbicort) 1 puff IH BIDR [facility] Stop: 01/01/19 10:01 Last Admin: 07/02/18 08:01 Dose: 1 puff Chlorthalidone (Chlorthalidone) 50 mg PO QAM [facility] Stop: 01/01/19 09:01 Last Admin: 07/02/18 10:27 Dose: Not Given Docusate Sodium (Colace) 100 mg PO BID [facility]; Protocol Stop: 01/01/19 09:01 Last Admin: 07/02/18 10:28 Dose: 100 mg Heparin Sodium (Porcine) (Heparin) 5,000 unit SQ Q12HCO [facility] Stop: 01/01/19 06:01 Last Admin: 07/02/18 06:58 Dose: 5,000 unit Hydromorphone HCl (Dilaudid) 2 mg PO Q6HR PRN PRN Reason: Breakthrough Pain Stop: 01/01/19 01:13 Last Admin: 07/02/18 10:27 Dose: 2 mg Hydroxyzine Pamoate (Hydroxyzine Pamoate) 50 mg PO Q8H PRN PRN Reason: Itching Piperacillin Sod/Tazobactam (Sod 3.375 gm/ Sodium Chloride) 100 mls @ 25 mls/hr IVPB Q8HR [facility] Stop: 01/01/19 08:01 Last Admin: 07/02/18 09:34 Dose: 25 mls/hr Vancomycin HCl 1,500 mg/ (Sodium Chloride) 250 mls @ 167 mls/hr IVPB Q24H [facility]; Protocol Stop: 01/01/19 07:01 Last Infusion: 07/02/18 09:20 Dose: Infused Latanoprost (Xalatan) 1 drop BOTH EYES QPM [facility] Stop: 01/01/19 18:01 Levothyroxine Sodium (Synthroid) 88 mcg PO 0630 NOE Stop: 01/01/19 06:31 Last Admin: 07/02/18 06:58 Dose: 88 mcg Magnesium Hydroxide (Milk Of Magnesia Conc) 5 ml PO HS PRN PRN Reason: Constipation Stop: 01/01/19 03:49 Metoprolol Tartrate (Lopressor) 50 mg PO BID [facility] Stop: 01/01/19 09:01 Last Admin: 07/02/18 10:27 Dose: 50 mg Mirtazapine (Remeron) 15 mg PO HS [facility] Stop: 01/01/19 21:01 Montelukast Sodium (Singulair) 10 mg PO QPM [facility] Stop: 01/01/19 18:01 Naloxone HCl (Narcan) 0.4 mg IVP Q2MIN PRN PRN Reason: SEE COMMENTS Stop: 12/31/18 22:21 Naloxone HCl (Narcan) 0.4 mg IVP Q2MIN PRN PRN Reason: SEE COMMENTS Stop: 01/01/19 03:48 Ondansetron HCl (Zofran Odt) 4 mg SL Q6HR PRN PRN Reason: Nausea And Vomiting Stop: 01/01/19 03:49 Oxycodone HCl (Roxicodone) 10 mg PO Q6HR PRN PRN Reason: Severe Pain Stop: 12/31/18 22:21 Last Admin: 07/01/18 22:32 Dose: 10 mg Pharmacy Profile Note (Patient Taking Own Medication) 1 each OP BID NOE Stop: 01/01/19 09:01 Last Admin: 07/02/18 09:37 Dose: Not Given Pharmacy Profile Note (Patient Taking Own Medication) 0 each TP AD PRN PRN Reason: Pain Stop: 01/01/19 03:49 Pharmacy Profile Note (Patient Taking Own Medication) 1 each PO DAILY NOE Stop: 01/01/19 09:01 Last Admin: 07/02/18 09:37 Dose: Not Given Pharmacy Profile Note (Patient Taking Own Medication) 1 each PO DAILY NOE Stop: 01/01/19 09:01 Last Admin: 07/02/18 09:37 Dose: Not Given Pharmacy Profile Note (Patient Taking Own Medication) 1 each PO 0630 NOE Stop: 01/01/19 06:31 Last Admin: 07/02/18 06:58 Dose: Not Given Pharmacy Profile Note (Patient Taking Own Medication) 1 each PO DAILY NOE Stop: 01/01/19 09:01 Last Admin: 07/02/18 09:37 Dose: Not Given Potassium Chloride (Potassium Chloride) 10 meq PO DAILY NOE Stop: 01/01/19 09:01 Last Admin: 07/02/18 10:28 Dose: 10 meq Pregabalin (Lyrica) 200 mg PO BID NOE Stop: 01/01/19 09:01 Last Admin: 07/02/18 09:41 Dose: 200 mg Ropinirole HCl (Requip) 1 mg PO HS [facility] Stop: 01/01/19 21:01 Sumatriptan Succinate (Imitrex) 100 mg PO Q2H PRN PRN Reason: Migraine Headache Timolol Maleate (Timolol Maleate 0.5%) 1 drop OP BID NOE; Protocol Stop: 01/01/19 09:01 Last Admin: 07/02/18 10:28 Dose: 1 drop Tizanidine HCl (Zanaflex) 8 mg PO TID PRN PRN Reason: muscle spasms Stop: 01/01/19 03:49 Last Admin: 07/02/18 09:37 Dose: 8 mg Topiramate (Topamax) 200 mg PO BID [facility] Stop: 01/01/19 09:01 Last Admin: 07/02/18 10:28 Dose: 200 mg Vitamin D (Vitamin D) 1,000 unit PO DAILY NOE Stop: 01/01/19 09:01 Last Admin: 07/02/18 10:28 Dose: 1,000 unit - Imaging and Cardiology Echo: pending Other Results: pt. not on telemetry - EKG Interpretation EKG results cardiology: personally reviewed Consult Discharge Plan - Plan Referrals: Darek Teresa MD [Primary Care Provider] - <Christy Zelaya - Last Filed: 07/02/18 15:49> Date of Encounter: 07/02/18 - Attending Attestation I examined this patient and my medical decision-making was reviewed with the MILLWRIGHT SUPERVISOR. I agree with the documented findings, disposition and treatment plan as described. Patient planning on undergoing debridement and wound closure of a non-healing wound. Asked for CV risk assessment. Recently underwent right total knee replacement without cardiac complications. Has known CAD, small vessels not amenable to PCI. Stress testing 06/14 negative for ischemia. Patient denies new cardiac symptoms. She is AAOx3, NAD at time of evaluation. Distant heart sounds, soft systolic murmur LSB, BLE edema Vital sign stable Labs, imaging studies Impression: 1. Preoperative CV Risk Assessment: Recently underwent TKR without cardiac compliacations. Denies chest pain. However, given known CAD, cardiac risk exists. Agree with ECG and Echo prior to further recommendations. Assessment and Plan Discussion w patient/family: The assessment and plan as outlined above was discussed with the patient and/or family members who expressed understanding and agreement. All questions were answered. Thank you for involving us in the care of your patient. Please call with any questions. History of Present Illness History of present illness: Ms. Lula Villafana is a 58 year old female All Systems Review: The remainder of the systems were reviewed and are negative Results 07/02/18 04:26 07/02/18 04:26 Lab Results 07/01/18 07/01/18 07/01/18 17:42 17:42 17:42 WBC 5.5 Hgb 10.2 L Hct 34.3 L Plt Count 114 L INR 1.1 APTT 36.3 H Sodium 140 Potassium 4.3 Chloride 111 H Carbon Dioxide 25 BUN 47 H Creatinine 1.37 H Glucose 97 Calcium 9.0 Total Bilirubin AST ALT Alkaline Phosphatase 07/02/18 07/02/18 07/02/18 00:23 04:26 04:26 WBC 8.5 D Hgb 10.0 L Hct 33.5 L Plt Count 141 INR APTT Sodium 140 141 Potassium 4.5 4.2 Chloride 113 H 113 H Carbon Dioxide 22 L 22 L BUN 43 H 40 H Creatinine 1.35 H 1.22 H Glucose 141 H 108 H Calcium 8.7 8.7 Total Bilirubin 0.4 AST 13 ALT 12 Alkaline Phosphatase 108 H
[2018-07-02] MEDS ORDERED: Perflutren Lipid Microsphere 1.3 ML in 0.9 % Sodium Chloride 8.7 ML IVP ONE (17:09)
[2018-07-02] MEDS ORDERED: Latanoprost 2.5 ML BOTTLE BOTH EYES SCH (18:00)
--- NOTE | 2018-07-02 19:48 | Anesthesia Evaluation PreOp ---
Date of Encounter: 07/02/18 Time of Encounter: 20:48 - Past History Planned Operation: R-knee I &D Cardiac History: HTN, Other (Known CAD/small Vessel dz not amenable to PCI) Pulmonary History: Asthma, COPD, ISIDRO Dx (Non-compliant w/ CPAP) HIDE GRADER History: Other (Fibromyalgia) Other Medical History: Diabetes Type II, Other (MO/BMI = 53) Anesthesia History: Past Anesthesia (R-TKR 03/2018, [facility], B-CTR, T&A) Alcohol Use: none Drug use: none Medications and Allergies Albuterol Sulfate [Ventolin Hfa] 2 puff IH Q4H PRN 04/09/18 [History] Allopurinol [Zyloprim] 300 mg PO DAILY 04/09/18 [History] Atorvastatin [Lipitor] 40 mg PO HS 04/09/18 [History] Bimatoprost [Lumigan] 1 drop OP QPM 04/09/18 [History] BuPROPion SR (12 HR) [Wellbutrin SR] 150 mg PO BID 04/09/18 [History] Chlorthalidone 50 mg PO QAM 04/09/18 [History] Cholecalciferol (D-3) [Vitamin D] 5,000 unit PO DAILY 04/09/18 [History] Cyclosporine [Restasis] 1 drop BOTH EYES BID 04/09/18 [History] Diclofenac Sodium [Voltaren] 100 gm TP PRN PRN 04/09/18 [History] Fluticasone/Salmeterol [Advair 250-50 Diskus] 1 puff IH BID 04/09/18 [History] Levothyroxine Sodium [Levoxyl] 88 mcg PO DAILY 04/09/18 [History] Linaclotide [Linzess] 290 mcg PO DAILY 04/09/18 [History] Metoprolol [Lopressor] 50 mg PO BID 04/09/18 [History] Mirabegron [Myrbetriq] 50 mg PO DAILY 04/09/18 [History] Mirtazapine [Remeron] 15 mg PO HS 04/09/18 [History] Montelukast [Singulair] 10 mg PO DAILY 04/09/18 [History] Nitroglycerin [Nitrostat] 0.4 mg SL Q5M PRN 04/09/18 [History] Nortriptyline HCl 150 mg PO DAILY 04/09/18 [History] Pantoprazole Sodium [Protonix] 40 mg PO DAILY 04/09/18 [History] Pioglitazone HCl [Actos] 30 mg PO DAILY 04/09/18 [History] Potassium Chloride [Klor-Con 10] 10 meq PO DAILY 04/09/18 [History] Pregabalin [Lyrica] 200 mg PO BID 04/09/18 [History] SUMAtriptan Succinate [Imitrex] 100 mg PO Q2H PRN 04/09/18 [History] SitaGLIPtin [Januvia] 100 mg PO DAILY 04/09/18 [History] Timolol Maleate 0.5% 1 drop OP BID 04/09/18 [History] Tizanidine HCl 8 mg PO TID PRN 04/09/18 [History] Topiramate [Topamax] 200 mg PO BID 04/09/18 [History] hydrOXYzine HCl [Hydroxyzine HCl] 50 mg PO Q8H PRN 04/09/18 [History] rOPINIRole [Requip] 1 mg PO HS 04/09/18 [History] Aspirin Enteric Coated [Aspirin EC] 325 mg PO BID 10 Days #1 tablet. 04/15/18 [Rx] Docusate [Colace] 100 mg PO BID capsule 04/15/18 [Rx] HYDROcodone/Acet 7.5/325 mg [[place] 7.5-325 mg] 1 tab PO Q6H PRN 30 Days #4 tablet 04/15/18 [Rx] MOM Conc [MILK OF MAGNESIA conc] 5 ml PO HS PRN ud.liq 04/15/18 [Rx] Ondansetron ODT [Zofran ODT] 4 mg SL Q6HR PRN tab.rapdis 04/15/18 [Rx] Solifenacin Succinate [Vesicare] 10 mg PO DAILY 07/02/18 [History] Allergy/AdvReac Type Severity Reaction Status Date / Time Nefazodone [From Serzone] Allergy Rash Verified 12/09/16 14:49 - Meds/Allergy Pre-op Review Medications Reviewed: Yes Allergies Reviewed: Yes Beta Blockers on Current Med List: Yes (Metoprolol) If Beta Blockers taken, Date/Time (Last Dose taken): 07/02/2018 @ 1027 Anesthesia Results - Labs 07/02/18 04:26 12/05/18 04:26 - Imaging EKG: image reviewed Additional studies: TTE pending? per Cardiology Note <Ghislaine Cerda - Last Filed: 07/02/18 13:27> Date of Encounter: 07/02/18 Time of Encounter: 13:00 Cardiology Assessment and Plan (1) Pre-operative cardiovascular examination Current Visit: Yes Status: Acute Preoperative CV examination requested prior to closure of right knee non-healing surgical wound--planned for 07/03/18. Hx of CAD per [facility] in 2005--small vessel CAD not amendable to PCI (80% diagnonal); otherwise non-obstructive CAD. 2-day nuclear stress test 05/2017: perfusion imagining negative for ischemia or infarct, gated EF=75% TTE 05/2017: LVEF 60%, moderate LVDD, normal RV structure and function, moderately dilated LA, mild TR, mild PH, normal wall motion Estimated RVSP is 43 mmHg. She denies chest pain/discomfort; describes chronic dyspnea--non compliant with CPAP. Patient is not physically active, very sedentary d/t severe right knee pain. Obtain ECG now, would recommend obtaining TTE to evaluate structure and function. Continue asa and BB in the eder-operative period. If no significant findings or abnormalities on TTE/ECG, patient is an acceptable CV risk candidate for orthopedic procedure. Will further discuss with Dr. Zelaya. Per Dr. Yepez: Impression: 1. Preoperative CV Risk Assessment: Recently underwent TKR without cardiac compliacations. Denies chest pain. However, given known CAD, cardiac risk exists. Agree with ECG and Echo prior to further recommendations. Anesthesia Exam Vital Signs Temp Pulse Resp BP Pulse Ox 07/02/18 18:26 98.3 F 66 17 109/72 97 07/02/18 15:44 98.4 F 63 16 114/74 97 07/02/18 11:31 98.2 F 56 18 106/66 95 07/02/18 08:01 16 95 07/02/18 06:49 98.2 F 78 18 114/65 92 07/02/18 05:00 98.3 F 75 18 100/63 90 07/01/18 23:51 98.4 F 74 18 132/83 91 07/01/18 21:49 98.2 F 72 18 120/70 100 07/01/18 20:30 97.8 F 20 147/99 Intake and Output 07/02/18 07/02/18 07/02/18 07:59 15:59 23:59 Intake Total 200 / 200 1850 / 1850 400 / 400 Output Total 550 / 550 1150 / 1150 Balance -350 / -350 700 / 700 400 / 400 Intake: IV Fluids 200 / 200 1650 / 1650 0.9 % Sodium Chloride 1,000 ML 200 / 200 800 / 800 @ 100 mls/hr IVC .Q10H ONE Rx#: [id number] Zosyn 3.375 GM In 0.9 % Sodium 100 / 100 Chloride (Mini-Bag +) 100 ML @ 25 mls/hr IVPB Q8HR NOE Rx#: [id number] Vancocin 1,500 MG In 0.9 % 250 / 250 Sodium Chloride 250 ML @ 167 mls/hr IVPB Q24H NOE Rx#: [id number] Oral 200 / 200 400 / 400 Output: Catheter 550 / 550 1150 / 1150 Urethral (Chiu) 850 / 850 Other: Meal Breakfast Percent of Meal Consumed 100% Blood Glucose* 116 92 Height: 5'5" Weight: 316# BMI = 53 - HEENT Pupil (Motor): Pupils equal, EOMI Mallampati: III Teeth: Edentulous Oral Opening: Greater than 3 - HIDE GRADER LOC: Oriented HIDE GRADER Motor: Normal RUE, Normal LUE, Normal LLE, Normal Face, Deficit RLE HIDE GRADER Sensory: Normal: RUE, LUE, LLE, Face, Deficit: RLE - Cardiac Rhythm: Regular Murmur: None JVD: No - Pulmonary Breath Sounds: bilateral Clear Respiratory Effort: Symmetrical Anesthesia Assess/Plan ASA Score: 4 (MO/BMI = 53,) Level of consciousness: Cooperative Anes Supervising Prov Stmt: Pt seen/evaluated, R&B Discussed, questions answered and consent obtained. China Kapoor MD
[2018-07-02] MEDS ORDERED: rOPINIRole 1 MG TABLET PO SCH (21:00)
[2018-07-02] MEDS ORDERED: Mirtazapine 15 MG TABLET PO SCH (21:00)
[2018-07-03] MEDS: Piperacillin/Tazobactam 3.375 GM in 0.9 % Sodium Chloride Mini Bag 100 ML IVPB SCH ×4 (01:00→23:27)
[2018-07-03 05:57] LABS: Basophils % 0.5 %; Eosinophils # 0.4 K/mcL (0.0-0.6); Eosinophils % 6.9 %; Hematocrit 31.2 % (35.3-44.9); Hemoglobin 9.1 g/dL (11.5-15.4); Immature Granulocytes % 0.2 % (0-4); Lymphocytes # 0.8 K/mcL (0.6-4.6); Lymphocytes % 14.5 %; Mean Corpuscular HGB Conc 29.2 g/dL (31.6-35.5); Mean Corpuscular Hemoglobin 28.9 pg (28.0-33.3); Mean Platelet Volume 11.7 fL (9.4-12.4); Monocytes # 0.5 K/mcL (0.0-1.3); Monocytes % 8.9 %; Neutrophils # 3.8 K/mcL (1.6-8.9); Platelet Count 100 K/mcL (140-400); Red Blood Count 3.15 M/mcL (3.82-4.97); Red Cell Distribution Width 16.1 % (11.5-14.5)
[2018-07-03 06:16] LABS: BUN/Creatinine Ratio 40 (6-26); Blood Urea Nitrogen 41 mg/dL (8-23); Calcium 8.7 mg/dL (8.6-10.3); Carbon Dioxide 23 mEq/L (23-29); Chloride 113 mEq/L (98-107); Glucose 108 mg/dL (70-105); Osmolality,Calculated 301 (280-300); Potassium 4.2 mEq/L (3.5-5.1); Sodium 140 mEq/L (136-145); eGFR For Non-African Americans 55 (> 60)
[2018-07-03] MEDS: *HR* Heparin 5,000 UNIT/ML VIAL SQ SCH ×2 (06:32→20:56)
[2018-07-03] MEDS: PROTONIX 40MG PO SCH (06:33)
[2018-07-03] MEDS: *HR* HYDROmorphone 2 MG TABLET PO PRN (08:23)
[2018-07-03] MEDS: Mirabegron [Myrbetriq] 50 MG PO SCH (08:28)
[2018-07-03] MEDS: Pregabalin 50 MG CAPSULE PO SCH ×2 (08:28→20:56)
[2018-07-03] MEDS: Aspirin Enteric Coated 325 MG Tablet PO SCH ×2 (08:28→20:55)
[2018-07-03] MEDS: Cyclosporine [Restasis] OP SCH (08:28)
[2018-07-03] MEDS: VESICARE 10MG PO SCH (08:29)
[2018-07-03] MEDS: Cholecalciferol (D-3) 1,000 UNIT TABLET PO SCH (08:29)
[2018-07-03] MEDS: Topiramate 100 MG TABLET PO SCH ×2 (08:29→20:55)
[2018-07-03] MEDS: Budesonide/Formoterol 80/4.5 MDI IH SCH (08:33)
--- NOTE | 2018-07-03 08:56 | Event Note ---
Date of Encounter: 07/03/18 Time of Encounter: 08:30 - Cardiology Event Note Results of TTE reviewed, no significant findings. ECG shows non-specific ST changes No further cardiac testing warranted as inpatient; patient is an acceptable CV risk candidate to proceed with closure of non-healing right knee surgical incision. Recommend continuation of asa and BB in the eder-operative period. Cardiology will sign-off. Impressions Echocardiogram 07/02/18 11:56 Impressions: LVEF 55-60%. Normal LV chamber size and wall thickness. Moderate left ventricular diastolic dysfunction. Normal right ventricular structure and function. Mildly dilated left atrium. Trace tricuspid regurgitation. No pulmonary hypertension. Left Ventricular Wall Motion: Rest Echo Findings All wall segments showed normal motion. Findings: Study Quality * Technically adequate exam. ECG Findings * Normal sinus rhythm. Left Ventricle * Normal LV chamber size and wall thickness. * Moderate left ventricular diastolic dysfunction. * LVEF 55-60%. Right Ventricle * Normal right ventricular structure and function. Left Atrium * Mildly dilated left atrium. Right Atrium * Normal right atrial size. Interatrial Septum * Interatrial septum not well evaluated. Aortic Valve * Trileaflet aortic valve. * No aortic regurgitation. * No aortic stenosis. Mitral Valve * Normal mitral valve structure. * No mitral regurgitation. * No mitral stenosis. Tricuspid Valve * Trace tricuspid regurgitation. * No tricuspid stenosis. * No pulmonary hypertension. * Estimated RVSP is 26 mmHg. * Estimated RA pressure is 5 mmHg. Pulmonic Valve * Pulmonic valve is not well visualized. Aorta * Normally sized aortic root. Pericardium * The pericardium appears normal. IVC * Normal IVC dimensions and inspiratory collapse.
--- NOTE | 2018-07-03 09:51 | Electrocardiograph Report ---
[address] [place], [place] [address] Test Date: 2018-07-02 Pat Name: Margaret Villafana Department: 114 Room: [facility] Gender: F Vision Impaired Teacher: : 1960 Requested By: Ghislaine Cerda Order Number: [id number] Reading MD: Christy Zelaya Measurements Intervals [place] Rate: 58 P: 71 [place]: 139 QRS: 42 QRSD: 87 T: 31 QT: 385 QTc: 382 Interpretive Statements [employer] LIMITS INTERPRETATION Electronically Signed On 07-03-2018 9:49:43 EST by Christy Zelaya
--- NOTE | 2018-07-03 10:03 | Orthopedics Progress Note ---
Date of Encounter: 07/03/18 Time of Encounter: 10:02 Subjective Interval history: Patient seen this morning open wound right leg, patient for surgery today irrigation debridement wound closure. Objective Vital signs: Vital Signs Temp Pulse Resp BP Pulse Ox 07/03/18 07:23 98.6 F 61 15 117/78 96 07/03/18 04:56 97.9 F 57 16 111/72 98 07/02/18 23:23 98.4 F 63 16 110/72 94 07/02/18 18:26 98.3 F 66 17 109/72 97 07/02/18 15:44 98.4 F 63 16 114/74 97 07/02/18 11:31 98.2 F 56 18 106/66 95 Intake and Output 07/02/18 07/03/18 07/03/18 23:59 07:59 15:59 Intake Total 700 / 700 100 / 100 250 / 250 Output Total 300 / 300 Balance 400 / 400 100 / 100 250 / 250 Intake: IV Fluids 100 / 100 100 / 100 250 / 250 Zosyn 3.375 GM In 0.9 % Sodium 100 / 100 100 / 100 Chloride (Mini-Bag +) 100 ML @ 25 mls/hr IVPB Q8HR [facility] Rx#: [id number] Vancocin 1,500 MG In 0.9 % 250 / 250 Sodium Chloride 250 ML @ 167 mls/hr IVPB Q24H [facility] Rx#: [id number] Oral 600 / 600 0 / 0 Output: Catheter 300 / 300 Urethral (Chiu) 300 / 300 Other: Meal Breakfast Percent of Meal Consumed 0% Weight 143.335 kg Blood Glucose* 167 106 Patient Weight 07/03/18 23:59 Weight 143.335 kg - Labs CBC & BMP: 07/03/18 05:14 07/03/18 05:14 Labs: Abnormal lab results RBC 3.15 M/mcL (3.82-4.97) L 07/03/18 05:14 Hgb 9.1 g/dL (11.5-15.4) L 07/03/18 05:14 Hct 31.2 % (35.3-44.9) L 07/03/18 05:14 MCHC 29.2 g/dL (31.6-35.5) L 07/03/18 05:14 RDW 16.1 % (11.5-14.5) H 07/03/18 05:14 Plt Count 100 K/mcL (140-400) L 07/03/18 05:14 ESR 42 mm/hr (0-15) H 07/01/18 18:00 PT 12.6 Seconds (9.4-12.1) H 07/01/18 17:42 APTT 36.3 Seconds (26.0-36.0) H 07/01/18 17:42 Chloride 113 mEq/L (98-107) H 07/03/18 05:14 BUN 41 mg/dL (8-23) H 07/03/18 05:14 Est GFR (Non-Af Amer) 55 (> 60) L 07/03/18 05:14 BUN/Creatinine Ratio 40 (6-26) H 07/03/18 05:14 Glucose 108 mg/dL (70-105) H 07/03/18 05:14 Calculated Osmolality 301 (280-300) H 07/03/18 05:14 Alkaline Phosphatase 108 Units/L (34-104) H 07/02/18 04:26 Globulin 3.7 g/dL (2.4-3.5) H 07/02/18 04:26 Albumin/Globulin Ratio 1.0 (1.1-2.2) L 07/02/18 04:26 Urine Protein 100 mg/dL (Neg-Trace) H 07/02/18 12:10 Urine Blood Moderate (Negative) H 07/02/18 12:10 Ur Leukocyte Esterase Small (Negative) H 07/02/18 12:10 Urine Microscopic RBC 50-100 per hpf (0-3) H 07/02/18 12:10 Urine Microscopic WBC 30-50 per hpf (0-3) H 07/02/18 12:10 Ur Squamous Epith Cells Many per lpf (None-Few) H 07/02/18 12:10 Ur Culture Indicated? NO. (NO) A 07/02/18 12:10 Consult Discharge Plan - Plan Referrals: Darek Teresa MD [Primary Care Provider] -
--- NOTE | 2018-07-03 11:50 | Internal Med Progress Note ---
<Julio Wood - Last Filed: 07/03/18 12:58> Hospitalist Progress Note - Encounter Date of Encounter: 07/03/18 Time of Encounter: 10:20 - Subjective Interval History: Ms. Lula Villafana is a 58 year old female seen hospital day 3 for non-healing wound on R leg status post total R knee replacement 04/15. She notes today there is no change from previous day in overall pain and pain in R leg from toes to hip. Orthopedics is planning a wide excision wound closure today. Patient admits constipation baseline, joint pain and muscle ache and denies headache, fever, chills, chest pain, palpitations, chest pressure, shortness of breath, cough, wheeze, abdominal pain, nausea, vomiting, urinary changes, bowel changes, flank tenderness, and blood in stool. - Exam Vitals: Temp Pulse Resp BP Pulse Ox 98.6 F 61 15 117/78 96 07/03/18 07:23 07/03/18 07:23 07/03/18 07:23 07/03/18 07:23 07/03/18 07:23 Exam: General: awake, alert, oriented, in visible distress HEENT: normocephalic, atraumatic CV: normal rate and rhythm, systolic murmur indicating possible Aortic Stenosis Resp: bilaterally clear to auscultation, no wheezes Abd: soft, nondistended, normal bowel sounds Extremities: bilateral nonpitting edema, R total knee replacement incision with 3cm x 5cm x 2cm wound with purulent discharge. Neuro: A&Ox3, no focal deficits - Assessment and Plan (1) Wound infection after surgery Current Visit: Yes Status: Acute Assessment and Plan: Patient reports no change from yesterday, 05/07 constant pain in entire R LE from hip to toes that nothing alleviates and is aggravated by movement. CT with contrast shows soft tissue edema with no abscess or osteomyelitis and possible incidental ovarian cyst. Orthopedics planned wide excision wound closure today. Cardiology consult and Echo signed off on pre-operative risk stratification. Cardiology recommends aspirin and beta-mayra eder-operatively. (2) Anemia Current Visit: Yes Status: Acute Assessment and Plan: Hgb 9.1 07/03/18, 10.0 07/02/18 Likely iron deficiency post total knee replacement 04/15. Supplement Ferrous Sulfate and monitor. (3) Acute kidney injury Current Visit: Yes Status: Acute Assessment and Plan: Creatinine 1.02 at 0514 07/02/18, down from 1.37 at 1742 07/01/18. eGFR of 55 at 0514 07/02/18, up from 39 at 1742 07/01/18. Patient received IV contrast for CT yesterday, monitoring kidney function. Patient received IV fluids yesterday and today. (4) DVT prophylaxis Current Visit: No Status: Acute Assessment and Plan: subcutaneous heparin - Time Spent with Patient Total time spent is greater than 50% in coordination of care (as documented) at patient's floor/unit and/or counseling patient: Internal Medicine: Result - Labs CBC & Chem 7: 07/03/18 05:14 07/03/18 05:14 Labs: Short CBC 07/03/18 Range/Units 05:14 WBC 5.5 (4.3-11.1) K/mcL Hgb 9.1 L (11.5-15.4) g/dL Hct 31.2 L (35.3-44.9) % Plt Count 100 L (140-400) K/mcL Neutrophils # 3.8 (1.6-8.9) K/mcL BMP 07/03/18 05:14 Sodium 140 Potassium 4.2 Chloride 113 H Carbon Dioxide 23 BUN 41 H Creatinine 1.02 Glucose 108 H Calcium 8.7 Urine 07/02/18 Range/Units 12:10 Urine Color Yellow (Yellow) Urine Clarity Clear (Clear) Urine pH 6.5 (5.0-8.0) pH Units Ur Specific [place] 1.015 (1.010-1.025) Urine Protein 100 H (Neg-Trace) mg/dL Urine Glucose (UA) Normal (Normal) mg/dL - ABG Interpretation ABG results: PT/INR, D-dimer PT 12.6 Seconds (9.4-12.1) H 07/01/18 17:42 - Impressions Impressions Echocardiogram 07/02/18 11:56 Impressions: LVEF 55-60%. Normal LV chamber size and wall thickness. Moderate left ventricular diastolic dysfunction. Normal right ventricular structure and function. Mildly dilated left atrium. Trace tricuspid regurgitation. No pulmonary hypertension. Left Ventricular Wall Motion: Rest Echo Findings All wall segments showed normal motion. Findings: Study Quality * Technically adequate exam. ECG Findings * Normal sinus rhythm. Left Ventricle * Normal LV chamber size and wall thickness. * Moderate left ventricular diastolic dysfunction. * LVEF 55-60%. Right Ventricle * Normal right ventricular structure and function. Left Atrium * Mildly dilated left atrium. Right Atrium * Normal right atrial size. Interatrial Septum * Interatrial septum not well evaluated. Aortic Valve * Trileaflet aortic valve. * No aortic regurgitation. * No aortic stenosis. Mitral Valve * Normal mitral valve structure. * No mitral regurgitation. * No mitral stenosis. Tricuspid Valve * Trace tricuspid regurgitation. * No tricuspid stenosis. * No pulmonary hypertension. * Estimated RVSP is 26 mmHg. * Estimated RA pressure is 5 mmHg. Pulmonic Valve * Pulmonic valve is not well visualized. Aorta * Normally sized aortic root. Pericardium * The pericardium appears normal. IVC * Normal IVC dimensions and inspiratory collapse. Consult Discharge Plan - Plan Referrals: Darek Teresa MD [Primary Care Provider] - <Karthik Gonzalez - Last Filed: 07/03/18 18:42> Hospitalist Progress Note - Encounter Date of Encounter: 07/03/18 - Exam Vitals: Temp Pulse Resp BP Pulse Ox 97.8 F 55 9 102/60 93 07/03/18 17:28 07/03/18 17:28 07/03/18 17:28 07/03/18 17:28 07/03/18 17:28 - Assessment and Plan (1) DVT prophylaxis Current Visit: No Status: Acute (2) Wound infection after surgery Current Visit: Yes Status: Acute (3) Acute kidney injury Current Visit: Yes Status: Acute (4) Anemia Current Visit: Yes Status: Acute (5) Diabetes mellitus Current Visit: No Status: Chronic (6) Hypertension Current Visit: Yes Status: Chronic (7) Morbid obesity with BMI of 50.0-59.9, adult Current Visit: Yes Status: Chronic - Time Spent with Patient Total time spent is greater than 50% in coordination of care (as documented) at patient's floor/unit and/or counseling patient: Internal Medicine: Result - Labs CBC & Chem 7: 07/03/18 05:14 07/03/18 05:14 Labs: Short CBC 07/03/18 Range/Units 05:14 WBC 5.5 (4.3-11.1) K/mcL Hgb 9.1 L (11.5-15.4) g/dL Hct 31.2 L (35.3-44.9) % Plt Count 100 L (140-400) K/mcL Neutrophils # 3.8 (1.6-8.9) K/mcL BMP 07/03/18 05:14 Sodium 140 Potassium 4.2 Chloride 113 H Carbon Dioxide 23 BUN 41 H Creatinine 1.02 Glucose 108 H Calcium 8.7 - ABG Interpretation ABG results: PT/INR, D-dimer PT 12.6 Seconds (9.4-12.1) H 07/01/18 17:42 - Impressions Impressions Echocardiogram 07/02/18 11:56 Impressions: LVEF 55-60%. Normal LV chamber size and wall thickness. Moderate left ventricular diastolic dysfunction. Normal right ventricular structure and function. Mildly dilated left atrium. Trace tricuspid regurgitation. No pulmonary hypertension. Left Ventricular Wall Motion: Rest Echo Findings All wall segments showed normal motion. Findings: Study Quality * Technically adequate exam. ECG Findings * Normal sinus rhythm. Left Ventricle * Normal LV chamber size and wall thickness. * Moderate left ventricular diastolic dysfunction. * LVEF 55-60%. Right Ventricle * Normal right ventricular structure and function. Left Atrium * Mildly dilated left atrium. Right Atrium * Normal right atrial size. Interatrial Septum * Interatrial septum not well evaluated. Aortic Valve * Trileaflet aortic valve. * No aortic regurgitation. * No aortic stenosis. Mitral Valve * Normal mitral valve structure. * No mitral regurgitation. * No mitral stenosis. Tricuspid Valve * Trace tricuspid regurgitation. * No tricuspid stenosis. * No pulmonary hypertension. * Estimated RVSP is 26 mmHg. * Estimated RA pressure is 5 mmHg. Pulmonic Valve * Pulmonic valve is not well visualized. Aorta * Normally sized aortic root. Pericardium * The pericardium appears normal. IVC * Normal IVC dimensions and inspiratory collapse. - Attending Attestation The history, physical exam, and medical decision making was performed by the medical student either while I was physically present and actively involved or I personally re-performed the exam and medical decision making. I have verified the accuracy of the medical student's documentation with regards to the history, physical exam findings, and medical decision making on 07/03/18. Ms Cotton is currently admitted for open wound R leg. She is s/p OR today. She remains moderate to high risk due to potential for worsening clinical status. Ms Cotton is post op. She arouses but is sleeping. No acute issues since surgery Exam arouses to name. Comfortable Mucus membranes dry Heart not tachy No wheeze abd soft Dressing intact I/P 1. Open wound R knee s/p OR debridement - local wound care 2. Morbid obesity Further diagnoses and plan as above. <Julio Wood - Last Filed: 07/03/18 12:58> (2) Anemia Qualifiers: Anemia type: iron deficiency Iron deficiency anemia type: other iron deficiency Qualified Code(s): D50.8 - Other iron deficiency anemias <Karthik Gonzalez A - Last Filed: 07/03/18 18:42> (4) Anemia Qualifiers: Anemia type: iron deficiency Iron deficiency anemia type: other iron deficiency Qualified Code(s): D50.8 - Other iron deficiency anemias (5) Diabetes mellitus Qualifiers: Diabetes mellitus type: type 2 Diabetes mellitus exterminator insulin use: without exterminator use Diabetes mellitus complication status: without complication Qualified Code(s): E11.9 - Type 2 diabetes mellitus without complications (6) Hypertension Qualifiers: Hypertension type: essential hypertension Qualified Code(s): I10 - Essential (primary) hypertension
[2018-07-03] MEDS ORDERED: *HR* FentaNYL (PF) 100 MCG/2 ML VIAL ONE (13:00)
[2018-07-03] MEDS ORDERED: *HR* Propofol 200 MG/20 ML VIAL IVP ONE (13:00)
[2018-07-03] MEDS ORDERED: *HR* Midazolam HCl 2 MG/2 ML VIAL ONE (13:00)
[2018-07-03] MEDS ORDERED: Bupivacaine/EPI 1:200k 0.5%PF 30 ML VIAL ONE (13:09)
[2018-07-03] MEDS ORDERED: Ethanol\\Acetic Acid\\Na Ace\\Ben 1,000 ML IRRIG.SOLN IR ONE (13:12)
[2018-07-03] MEDS ORDERED: Lidocaine -MPF 2% 2 ML VIAL ONE ×2 (13:28→13:59)
[2018-07-03] MEDS ORDERED: Dexamethasone 4 MG/ML VIAL ONE (13:38)
[2018-07-03] MEDS ORDERED: Ondansetron 4 MG/2 ML VIAL ONE (13:38)
[2018-07-03] MEDS ORDERED: EPHEDrine 50 MG/ML VIAL ONE (13:41)
[2018-07-03] MEDS ORDERED: *HR* OxyCODONE Immed Rel 5 MG TABLET PO PRN (13:55)
[2018-07-03] MEDS ORDERED: *HR* Promethazine 25 MG/ML VIAL IVP PRN (13:55)
[2018-07-03] MEDS ORDERED: Albuterol 2.5 MG/3 ML NEBULIZER IH ONE (13:55)
[2018-07-03] MEDS ORDERED: *HR* Labetalol 20 MG/4 ML SYRINGE IVP PRN (13:55)
--- NOTE | 2018-07-03 14:10 | Orthopedic Operative Note ---
Date of procedure: 07/03/18 Pre-op diagnosis: Right knee wound dehiscence Post-op diagnosis: same Procedure: Procedure: Right knee wide excision irrigation debridement wound closure, right knee aspiration Estimated blood loss: 25 mL Findings: No communication intra-articular, intra-articular aspiration consistent with joint fluid. No abscess purulent material or collection identified Procedure: Patient brought to the operating placed on the operating table after general anesthesia was administered the right lower extremity was prepped and draped in the sterile surgical fashion patient received IV antibiotics prior skin incision. Primary away from the open area aspiration of the knee was performed this revealed normal joint. Fluid which was sent for Gram stain and culture. The open area measuring approximately 4 cm x 2 cm a wide excision extending up above and below an elliptical fashion was performed this was transected below the bed of the open area. There was no communication through the extensor mechanism. Cultures were obtained of the wound. The wound was first irrigated with 1 L of pulse irrigation of antibacterial solution. It then sat for 1 minute with an antibacterial solution of a different entity. It was then irrigated out with 3 L of pulse irrigation. The wound was closed in layers deep #2 PDS suture superficially opened PDS suture subcutaneous Monocryl suture skin was closed with skin tamara patient placed on dressing extubated transfer red to recovery in stable condition. Anesthesia: GETA Surgeon: Gm Cameron Was there an assistant manager quality management present: No Estimated blood loss (cc): 25 Condition: stable Disposition: PACU
[2018-07-03] MEDS: *HR* HYDROmorphone (PF) 1 MG/ML SYRINGE IVP PRN ×3 (14:26→14:41)
--- NOTE | 2018-07-03 14:56 | Anesthesia Evaluation Post Op ---
Date of Encounter: 07/03/18 Time of Encounter: 14:56 - Vital Signs Vital Signs: Last Vital Signs Temp 99.2 F 07/03/18 14:38 Pulse 67 07/03/18 14:48 Resp 14 07/03/18 14:48 BP 115/73 07/03/18 14:48 Pulse Ox 96 07/03/18 14:48 - Lungs Lungs: Clear Ascult./Percussion - Airway Airway: Non-obstructed - Cardiovascular Regular Rate - Mental Status Mental Status: Alert & Oriented, Answers Appropriately - Pain Pain Scale: 4 - Nausea Vomiting Nausea Vomiting: Not Present - Hydration Hydration: NPO, Chiu catheter - Discharge PostOp Status: Transfer Patient to floor
[2018-07-03] MEDS ORDERED: Ondansetron 4 MG/2 ML VIAL IVP PRN (15:28)
[2018-07-03] MEDS ORDERED: Sennosides 8.6 MG TABLET PO PRN (15:28)
[2018-07-03] MEDS ORDERED: Naloxone 0.4 MG/ML INJ IVP PRN ×3 (15:28)
[2018-07-03] MEDS ORDERED: SUMAtriptan succinate 50 MG TABLET PO PRN (15:28)
[2018-07-03] MEDS ORDERED: *HR* HYDROmorphone 2 MG TABLET PO PRN (15:28)
[2018-07-03] MEDS ORDERED: tiZANidine 4 MG TABLET PO PRN (15:28)
[2018-07-03] MEDS ORDERED: Ondansetron ODT 4 MG TAB.RAPDIS SL PRN (15:28)
[2018-07-03] MEDS ORDERED: [UNRECOGNIZED DRUG - REMARK] TP PRN (15:28)
[2018-07-03] MEDS ORDERED: Acetaminophen 325 MG TABLET PO PRN (15:28)
[2018-07-03] MEDS ORDERED: hydrOXYzine pamoate 25 MG CAPSULE PO PRN (15:28)
[2018-07-03] MEDS ORDERED: Temazepam 15 MG CAPSULE PO PRN (15:28)
[2018-07-03] MEDS ORDERED: MOM Conc 10 ML UD.LIQ PO PRN ×2 (15:28)
[2018-07-03] MEDS: Ringers Solution, Lactated 1,000 ML IVC SCH (16:35)
[2018-07-03] MEDS ORDERED: Latanoprost 2.5 ML BOTTLE BOTH EYES SCH (18:00)
[2018-07-03] MEDS ORDERED: rOPINIRole 1 MG TABLET PO SCH (21:00)
[2018-07-03] MEDS ORDERED: Mirtazapine 15 MG TABLET PO SCH (21:00)
[2018-07-03] MEDS: CYCLOSPORINE OP SCH (22:09)
[2018-07-03] MEDS: *HR* OxyCODONE Immed Rel 5 MG TABLET PO PRN (23:37)
[2018-07-04] MEDS: *HR* OxyCODONE Immed Rel 5 MG TABLET PO PRN ×3 (04:51→17:04)
[2018-07-04] MEDS: *HR* Heparin 5,000 UNIT/ML VIAL SQ SCH (04:52)
[2018-07-04] MEDS: Ringers Solution, Lactated 1,000 ML IVC SCH (05:35)
[2018-07-04 06:09] LABS: Basophils % 0.3 %; Eosinophils % 0.3 %; Hematocrit 32.3 % (35.3-44.9); Hemoglobin 9.7 g/dL (11.5-15.4); Immature Granulocytes % 0.3 % (0-4); Lymphocytes # 0.7 K/mcL (0.6-4.6); Lymphocytes % 10.7 %; Mean Corpuscular Hemoglobin 29.4 pg (28.0-33.3); Mean Corpuscular Volume 97.9 fL (83.0-100.0); Mean Platelet Volume 11.5 fL (9.4-12.4); Monocytes # 0.6 K/mcL (0.0-1.3); Monocytes % 8.6 %; Neutrophils # 5.5 K/mcL (1.6-8.9); Platelet Count 120 K/mcL (140-400); Red Cell Distribution Width 15.8 % (11.5-14.5); Segmented Neutrophils % 79.8 %
[2018-07-04] MEDS ORDERED: PROTONIX 40 MG PO SCH (06:30)
--- NOTE | 2018-07-04 06:36 | Orthopedics Progress Note ---
Date of Encounter: 07/04/18 Time of Encounter: 06:36 Subjective Interval history: Patient was seen this morning doing well without complaints. Afebrile vital signs stable. Operative extremity: Neurovascularly intact Dressing clean dry and intact Calves nontender Assessment and plan: Continue with postoperative care Gram stain negative from knee joint. Continue IV antibiotics Objective Vital signs: Vital Signs Temp Pulse Resp BP Pulse Ox 07/04/18 04:58 98.3 F 71 15 136/78 93 07/04/18 00:35 98.1 F 76 18 139/82 94 07/03/18 20:55 93 07/03/18 18:38 97.8 F 52 9 112/74 93 07/03/18 17:28 97.8 F 55 9 102/60 93 07/03/18 16:32 97.8 F 62 6 110/72 93 07/03/18 15:50 99 F 60 12 138/85 95 07/03/18 15:14 99.0 F 65 16 153/81 96 07/03/18 14:58 99.2 F 56 12 118/78 93 07/03/18 14:48 67 14 115/73 96 07/03/18 14:38 99.2 F 66 14 133/69 95 07/03/18 14:28 72 14 124/89 97 07/03/18 14:18 71 16 112/71 92 07/03/18 14:08 99.3 F 68 18 108/80 100 07/03/18 07:23 98.6 F 61 15 117/78 96 Intake and Output 07/03/18 07/03/18 07/04/18 15:59 23:59 07:59 Intake Total 350 / 350 340 / 340 1090 / 1090 Output Total 1550 / 1550 1700 / 1700 Balance -1200 / -1200 340 / 340 -610 / -610 Intake: IV Fluids 350 / 350 100 / 100 1090 / 1090 Lactated Ringers 1,000 ML @ 75 990 / 990 mls/hr IVC .[id number] [facility] Rx#: [id number] Zosyn 3.375 GM In 0.9 % Sodium 100 / 100 100 / 100 100 / 100 Chloride (Mini-Bag +) 100 ML @ 25 mls/hr IVPB Q8HR [facility] Rx#: [id number] Vancocin 1,500 MG In 0.9 % 250 / 250 Sodium Chloride 250 ML @ 167 mls/hr IVPB Q24H [facility] Rx#: [id number] Oral 0 / 0 240 / 240 Output: Urine 0 / 0 Estimated Blood Loss 25 / 25 Urine Amount (Catheter) 625 / 625 Catheter 900 / 900 1700 / 1700 Other: Meal Breakfast Dinner Percent of Meal Consumed 0% 100% Weight 144.4 kg Blood Glucose* 110 125 Patient Weight 07/04/18 23:59 Weight 144.4 kg - Labs CBC & BMP: 07/04/18 05:57 07/03/18 05:14 Labs: Abnormal lab results RBC 3.30 M/mcL (3.82-4.97) L 07/04/18 05:57 Hgb 9.7 g/dL (11.5-15.4) L 07/04/18 05:57 Hct 32.3 % (35.3-44.9) L 07/04/18 05:57 MCHC 30.0 g/dL (31.6-35.5) L 07/04/18 05:57 RDW 15.8 % (11.5-14.5) H 07/04/18 05:57 Plt Count 120 K/mcL (140-400) L 07/04/18 05:57 ESR 42 mm/hr (0-15) H 07/01/18 18:00 PT 12.6 Seconds (9.4-12.1) H 07/01/18 17:42 APTT 36.3 Seconds (26.0-36.0) H 07/01/18 17:42 Chloride 113 mEq/L (98-107) H 07/03/18 05:14 BUN 41 mg/dL (8-23) H 07/03/18 05:14 Est GFR (Non-Af Amer) 55 (> 60) L 07/03/18 05:14 BUN/Creatinine Ratio 40 (6-26) H 07/03/18 05:14 Glucose 108 mg/dL (70-105) H 07/03/18 05:14 POC Glucose 106 mg/dL (70-99) H 07/03/18 08:10 Calculated Osmolality 301 (280-300) H 07/03/18 05:14 Alkaline Phosphatase 108 Units/L (34-104) H 07/02/18 04:26 Globulin 3.7 g/dL (2.4-3.5) H 07/02/18 04:26 Albumin/Globulin Ratio 1.0 (1.1-2.2) L 07/02/18 04:26 Urine Protein 100 mg/dL (Neg-Trace) H 07/02/18 12:10 Urine Blood Moderate (Negative) H 07/02/18 12:10 Ur Leukocyte Esterase Small (Negative) H 07/02/18 12:10 Urine Microscopic RBC 50-100 per hpf (0-3) H 07/02/18 12:10 Urine Microscopic WBC 30-50 per hpf (0-3) H 07/02/18 12:10 Ur Squamous Epith Cells Many per lpf (None-Few) H 07/02/18 12:10 Ur Culture Indicated? NO. (NO) A 07/02/18 12:10 Consult Discharge Plan - Plan Referrals: Darek Teresa MD [Primary Care Provider] -
[2018-07-04 06:43] LABS: BUN/Creatinine Ratio 31 (6-26); Blood Urea Nitrogen 31 mg/dL (8-23); Calcium 8.8 mg/dL (8.6-10.3); Carbon Dioxide 23 mEq/L (23-29); Chloride 112 mEq/L (98-107); Glucose 130 mg/dL (70-105); Osmolality,Calculated 298 (280-300); Potassium 4.1 mEq/L (3.5-5.1); Sodium 140 mEq/L (136-145); eGFR For Non-African Americans 56 (> 60)
[2018-07-04] MEDS ORDERED: Cholecalciferol (D-3) 1,000 UNIT TABLET PO SCH (09:00)
[2018-07-04] MEDS ORDERED: (Mirabegron [Myrbetriq] 50 MG) PO SCH (09:00)
[2018-07-04] MEDS ORDERED: (Linaclotide [Linzess] 290 MCG) PO SCH (09:00)
[2018-07-04] MEDS ORDERED: SOLIFENACIN 10 MG PO SCH (09:00)
[2018-07-04] MEDS: Aspirin Enteric Coated 325 MG Tablet PO SCH (09:50)
[2018-07-04] MEDS: Pregabalin 50 MG CAPSULE PO SCH (09:50)
[2018-07-04] MEDS: Topiramate 100 MG TABLET PO SCH (09:50)
[2018-07-04] MEDS: CYCLOSPORINE OP SCH (09:55)
--- NOTE | 2018-07-04 10:31 | Internal Med Progress Note ---
Hospitalist Progress Note - Encounter Date of Encounter: 07/04/18 Time of Encounter: 10:15 - Subjective Interval History: Ms. Lula Villafana is a 58 year old female seen hospital day 4 for non-healing wound on R leg status post total R knee replacement 04/15. She notes today there is no change from previous day in overall pain and pain in R leg from toes to hip, but she is very resistant to Physical Therapy; she eventually agreed to undergo PT for her knee. Orthopedics is planning a wide excision wound closure today. Patient admits constipation baseline, joint pain and muscle ache and denies headache, fever, chills, chest pain, palpitations, chest pressure, shortness of breath, cough, wheeze, abdominal pain, nausea, vomiting, urinary changes, bowel changes, flank tenderness, and blood in stool. - Exam Vitals: Temp Pulse Resp BP Pulse Ox 98.5 F 77 18 110/74 96 07/04/18 06:59 07/04/18 06:59 07/04/18 06:59 07/04/18 06:59 07/04/18 10:00 - Assessment and Plan (1) Wound infection after surgery Current Visit: Yes Status: Acute (2) Anemia Current Visit: Yes Status: Acute (3) Acute kidney injury Current Visit: Yes Status: Acute (4) DVT prophylaxis Current Visit: No Status: Acute - Time Spent with Patient Total time spent is greater than 50% in coordination of care (as documented) at patient's floor/unit and/or counseling patient: Internal Medicine: Result - Labs CBC & Chem 7: 07/04/18 05:57 07/04/18 05:57 Labs: Short CBC 07/04/18 Range/Units 05:57 WBC 6.9 (4.3-11.1) K/mcL Hgb 9.7 L (11.5-15.4) g/dL Hct 32.3 L (35.3-44.9) % Plt Count 120 L (140-400) K/mcL Neutrophils # 5.5 (1.6-8.9) K/mcL BMP 07/04/18 05:57 Sodium 140 Potassium 4.1 Chloride 112 H Carbon Dioxide 23 BUN 31 H Creatinine 1.01 Glucose 130 H Calcium 8.8 - ABG Interpretation ABG results: PT/INR, D-dimer PT 12.6 Seconds (9.4-12.1) H 07/01/18 17:42 Consult Discharge Plan - Plan Referrals: Darek Teresa MD [Primary Care Provider] - (2) Anemia Qualifiers: Anemia type: iron deficiency Iron deficiency anemia type: other iron deficiency Qualified Code(s): D50.8 - Other iron deficiency anemias
[2018-07-04] MEDS: Piperacillin/Tazobactam 3.375 GM in 0.9 % Sodium Chloride Mini Bag 100 ML IVPB SCH (11:22)
--- NOTE | 2018-07-04 13:14 | Discharge Summary ---
<Karthik Gonzalez - Last Filed: 07/04/18 14:00> Orders not resulted at time of discharge: Pending orders 07/01/18 22:41 Culture,Blood [BC] Stat 07/03/18 13:30 Culture,Anaerobic [RM] Routine Culture,Body Fluid [RM] Routine Culture,Wound [RM] Routine 07/05/18 04:00 Hemoglobin and Hematocrit [HEME] AM 0400 Date of Encounter: 07/04/18 - Discharge Diagnosis (1) Wound infection after surgery Priority: Primary Status: Acute (2) Acute kidney injury Priority: Secondary Status: Acute (3) Anemia Priority: Secondary Status: Acute Qualifiers: Anemia type: iron deficiency Iron deficiency anemia type: other iron deficiency Qualified Code(s): D50.8 - Other iron deficiency anemias (4) Diabetes mellitus Priority: Secondary Status: Chronic Qualifiers: Diabetes mellitus type: type 2 Diabetes mellitus exterminator insulin use: without group home use Diabetes mellitus complication status: without complication Qualified Code(s): E11.9 - Type 2 diabetes mellitus without complications (5) Hypertension Priority: Secondary Status: Chronic Qualifiers: Hypertension type: essential hypertension Qualified Code(s): I10 - Essential (primary) hypertension (6) Morbid obesity with BMI of 50.0-59.9, adult Priority: Secondary Status: Chronic Hospital course: Ms. Lula Villafana is a 58 year old female - Time Spent with Patient Total time spent providing and/or coordinating discharge services: 29 min - Discharge Medications Prescriptions: OxyCODONE Immed Rel [Roxicodone 5 MG] 10 mg PO Q6HR PRN 2 Days #8 tablet PRN Reason: Severe Pain Doxycycline 100 mg PO BID 10 Days #20 capsule Levofloxacin [Levaquin] 750 mg PO DAILY 10 Days #10 tablet Home Medications: Albuterol Sulfate [Ventolin Hfa] 2 puff IH Q4H PRN 04/09/18 [History] Allopurinol [Zyloprim] 300 mg PO DAILY 04/09/18 [History] Atorvastatin [Lipitor] 40 mg PO HS 04/09/18 [History] Bimatoprost [Lumigan] 1 drop OP QPM 04/09/18 [History] BuPROPion SR (12 HR) [Wellbutrin SR] 150 mg PO BID 04/09/18 [History] Chlorthalidone 50 mg PO QAM 04/09/18 [History] Cholecalciferol (D-3) [Vitamin D] 5,000 unit PO DAILY 04/09/18 [History] Cyclosporine [Restasis] 1 drop BOTH EYES BID 04/09/18 [History] Diclofenac Sodium [Voltaren] 100 gm TP PRN PRN 04/09/18 [History] Fluticasone/Salmeterol [Advair 250-50 Diskus] 1 puff IH BID 04/09/18 [History] Levothyroxine Sodium [Levoxyl] 88 mcg PO DAILY 04/09/18 [History] Linaclotide [Linzess] 290 mcg PO DAILY 04/09/18 [History] Metoprolol [Lopressor] 50 mg PO BID 04/09/18 [History] Mirabegron [Myrbetriq] 50 mg PO DAILY 04/09/18 [History] Mirtazapine [Remeron] 15 mg PO HS 04/09/18 [History] Montelukast [Singulair] 10 mg PO DAILY 04/09/18 [History] Nitroglycerin [Nitrostat] 0.4 mg SL Q5M PRN 04/09/18 [History] Nortriptyline HCl 150 mg PO DAILY 04/09/18 [History] Pantoprazole Sodium [Protonix] 40 mg PO DAILY 04/09/18 [History] Pioglitazone HCl [Actos] 30 mg PO DAILY 04/09/18 [History] Potassium Chloride [Klor-Con 10] 10 meq PO DAILY 04/09/18 [History] Pregabalin [Lyrica] 200 mg PO BID 04/09/18 [History] SUMAtriptan Succinate [Imitrex] 100 mg PO Q2H PRN 04/09/18 [History] SitaGLIPtin [Januvia] 100 mg PO DAILY 04/09/18 [History] Timolol Maleate 0.5% 1 drop OP BID 04/09/18 [History] Tizanidine HCl 8 mg PO TID PRN 04/09/18 [History] Topiramate [Topamax] 200 mg PO BID 04/09/18 [History] hydrOXYzine HCl [Hydroxyzine HCl] 50 mg PO Q8H PRN 04/09/18 [History] rOPINIRole [Requip] 1 mg PO HS 04/09/18 [History] Aspirin Enteric Coated [Aspirin EC] 325 mg PO BID 10 Days #1 tablet.dr 04/15/18 [Rx] Docusate [Colace] 100 mg PO BID capsule 04/15/18 [Rx] HYDROcodone/Acet 7.5/325 mg [[place] 7.5-325 mg] 1 tab PO Q6H PRN 30 Days #4 tablet 04/15/18 [Rx] MOM Conc [MILK OF MAGNESIA conc] 5 ml PO HS PRN ud.liq 04/15/18 [Rx] Ondansetron ODT [Zofran ODT] 4 mg SL Q6HR PRN tab.rapdis 04/15/18 [Rx] Solifenacin Succinate [Vesicare] 10 mg PO DAILY 07/02/18 [History] Doxycycline 100 mg PO BID 10 Days #20 capsule 07/04/18 [Rx] Levofloxacin [Levaquin] 750 mg PO DAILY 10 Days #10 tablet 07/04/18 [Rx] OxyCODONE Immed Rel [Roxicodone 5 MG] 10 mg PO Q6HR PRN 2 Days #8 tablet 07/04/18 [Rx] Allergies/Adverse Reactions: Allergy/AdvReac Type Severity Reaction Status Date / Time Nefazodone [From Serzone] Allergy Rash Verified 12/09/16 14:49 Date of admission: 07/02/18 03:44 Primary care physician: Darek Teresa MD Consults: 07/01/18 18:44 Consult to Orthopedic Surgery [CONS] Stat Consulting Provider: [facility] Reason for Consult: wound infection s/p right femoral fx Time Notified: 18:44 Call Completed: Yes 07/01/18 21:55 Consult to Value Stream Leader [CONS] Routine Reason for SW Consult: Plan of care for placement 07/02/18 12:35 Consult to Cardiology [CONS] Routine Comment: Consulting Provider: Cardiology [facility] Reason for Consult: Possible CAD. Needs to go to OR. Time Notified: 12:15 Call Completed: Yes 07/03/18 15:28 Consult to Occupational Therapy [CONS] Routine Comment: Evaluate, develop and implement POC Reason for Consult: post knee surgery Does patient have active BEDREST order?: No Is patient medically & hemodynamically stable?: Yes Consult to Orthopedic Navigator [CONS] [CONS] Routine Consult to Physical Therapy [CONS] Routine Comment: Evaluate, develop and impliment POC Reason for Consult: post knee surgery Does patient have active BEDREST order?: No Is patient medically & hemodynamically stable?: Yes Consult to Value Stream Leader [CONS] Routine Reason for SW Consult: post op joint replacement RT Post Op Consult [CONS] Routine 07/04/18 03:29 Consult to Wound Care [CONS] Routine Reason for Consult: Pt. has stage 2 decubitus ulcers on coccyx area. Please make recommendations for daily wound care. Call Completed: No - Constitutional Vitals: Temp Pulse Resp BP Pulse Ox 98.4 F 63 14 119/78 97 07/04/18 10:56 07/04/18 10:56 07/04/18 10:56 07/04/18 10:56 07/04/18 10:56 - Patient Status Disposition: Transfer Inpatient Rehab Fac Condition: Good - Discharge Instructions Follow Up With: Marilee Scott PAC [Physician Juvenile Counselor] - 07/11/18 8:45 am Darek Teresa MD [Primary Care Provider] - Wyatt Galvan MD [Partnered Physician] - 07/16/18 1:15 pm - Attending Attestation I examined this patient and my medical decision-making was reviewed with the Resident Physician on 07/04/18. I agree with the documented findings, disposition and treatment plan as described except to the extent set forth below. Ms Lynn has been admitted for infected wound on R knee. She is s/p I&D. Cultures negative thus far. She is afebrile and ready to return to SNF. Exam alert Comfortable at this time Mucus membranes dry Not tachycardic No wheeze abd soft Dressing intact Will discharge on Levaquin (prior cx with Pseudomonas) and Doxycycline. D/C to SNF today. <Jas Cavazos - Last Filed: 07/04/18 16:25> - NOTES TO OUTPATIENT PROVIDER Notes to Outpatient Provider: Ms Lula Villafana was admitted from [facility] for infection to post surgical wound of total right knee prosthesis. She was started on empiric antibiotics and scheduled for OR Irrigation and Debridement and wound cultures. Surgery was successful and she was monitored overnight. PT/OT were consulted on the day of discharge and recommended return to ECF. She was discharged in stable condition with 10 days levofloxacin and doxycycline, 2 days oxycodone. Orders not resulted at time of discharge: Pending orders 07/01/18 22:41 Culture,Blood [BC] Stat 07/03/18 13:30 Culture,Anaerobic [RM] Routine Culture,Body Fluid [RM] Routine Culture,Wound [RM] Routine 07/05/18 04:00 Hemoglobin and Hematocrit [HEME] AM 0400 Date of Encounter: 07/04/18 Time of Encounter: 13:05 - Discharge Diagnosis (1) Wound infection after surgery Priority: Primary Status: Acute Assessment and Plan: Wound I&D and culture completed yesterday. PT/OT consulted and recommended return to ECF. She will return with 10 days Levofloxacin/doxycycline and 2 days oxycodone. (2) DVT prophylaxis Priority: Secondary Status: Acute Assessment and Plan: heparin subcutaneous during hospital stay (3) Diabetes mellitus Priority: Secondary Status: Chronic Assessment and Plan: glucose stable on home meds during hospital stay Qualifiers: Diabetes mellitus type: type 2 Diabetes mellitus exterminator insulin use: without group home use Diabetes mellitus complication status: without complication Qualified Code(s): E11.9 - Type 2 diabetes mellitus without complications (4) Acute kidney injury Priority: Secondary Status: Acute Assessment and Plan: Patient received IV contrast for CT, monitored kidney function. Patient received IV fluids during hospital course Creatinine at baseline at discharge, down from 1.37 on admission (5) Anemia Priority: Secondary Status: Acute Assessment and Plan: Likely iron deficiency post total knee replacement 04/15. Supplement Ferrous Sulfate and monitor. Hgb 9.7 and stable at discharge Qualifiers: Anemia type: iron deficiency Iron deficiency anemia type: other iron deficiency Qualified Code(s): D50.8 - Other iron deficiency anemias (6) Hypertension Priority: Secondary Status: Chronic Assessment and Plan: Resume home meds at discharge Qualifiers: Hypertension type: essential hypertension Qualified Code(s): I10 - Essential (primary) hypertension (7) Morbid obesity with BMI of 50.0-59.9, adult Priority: Secondary Status: Chronic Assessment and Plan: Patient given diabetic diet during hospital course, counseled on calorie restriction Hospital course: Ms. Lula Villafana is a 58 year old female who presented to the hospital with infected wound at incision site of R total knee replacement that was completed by Dr. Cameron in 04/15. She went to ECF after the surgery and followed up with wound care and [facility], from the latter of which she was admitted due to lack of wound healing. She has a PMH of DM, HTN, morbid obesity, and anemia (secondary to blood loss from surgery). She received LE and pelvic CT on hospital day 1 that showed soft tissue edema and no definite evidence of abscess or osteomyelitis as well as possible ovarian cyst. Orthopedics was called, Dr. Cameron saw the patient on hospital day 2 and scheduled a wide excision wound closure for the next day pending pre-operative risk stratification for which an echo and Cardiology consult were called. TTE showed no significant findings, and Cardiology said absent any abnormalities on Echo or EKG that patient presented low risk for orthopedic procedure. Surgery was performed on hospital day 3 and was uneventful, knee joint fluid was aspirated for culture (did not grow anything on culture) and wound was excised and had antibiotic washing and was closed with suture and skin tamara. Post operatively on hospital day 4, dressing was clean and intact, pedal pulses are present bilaterally with no calf tenderness and neurovascularly intact. Patient is to be discharged to [facility] with follow up outpatient with orthopedics and PT. Also discahrged with 10 days Levaquin/doxycycline and 2 days oxycodone. Discharge discussed with: patient - Time Spent with Patient Total time spent providing and/or coordinating discharge services: Date of admission: 07/02/18 03:44 Primary care physician: Darek Teresa MD Consults: 07/01/18 18:44 Consult to Orthopedic Surgery [CONS] Stat Consulting Provider: Orthopedics [facility] Reason for Consult: wound infection s/p right femoral fx Time Notified: 18:44 Call Completed: Yes 07/01/18 21:55 Consult to Value Stream Leader [CONS] Routine Reason for SW Consult: Plan of care for placement 07/02/18 12:35 Consult to Cardiology [CONS] Routine Comment: Consulting Provider: John Wu Reason for Consult: Possible CAD. Needs to go to OR. Time Notified: 12:15 Call Completed: Yes 07/03/18 15:28 Consult to Occupational Therapy [CONS] Routine Comment: Evaluate, develop and implement POC Reason for Consult: post knee surgery Does patient have active BEDREST order?: No Is patient medically & hemodynamically stable?: Yes Consult to Orthopedic Navigator [CONS] [CONS] Routine Consult to Physical Therapy [CONS] Routine Comment: Evaluate, develop and impliment POC Reason for Consult: post knee surgery Does patient have active BEDREST order?: No Is patient medically & hemodynamically stable?: Yes Consult to Value Stream Leader [CONS] Routine Reason for SW Consult: post op joint replacement RT Post Op Consult [CONS] Routine 07/04/18 03:29 Consult to Wound Care [CONS] Routine Reason for Consult: Pt. has stage 2 decubitus ulcers on coccyx area. Please make recommendations for daily wound care. Call Completed: No Discharging clinician: Jas Cavazos Anticipated date of discharge: 07/04/18 - Constitutional Vitals: Temp Pulse Resp BP Pulse Ox 98.4 F 63 14 119/78 97 07/04/18 10:56 07/04/18 10:56 07/04/18 10:56 07/04/18 10:56 07/04/18 10:56 General appearance: Present: disheveled, A&O X 3, morbidly obese, answers questions appropriately Exam: General: awake, alert, oriented x3 HEENT: normocephalic, atraumatic CV: normal rate and rhythm, 2/6 systolic murmur Resp: bilaterally clear to auscultation, no wheezes Abd: soft, nondistended, normal bowel sounds Extremities: bilateral nonpitting edema, R knee bandaged and Alphonso wrap clean dry intact, sensation and movement intact in right toes Neuro: A&Ox3, no focal deficits - Patient Status Functional capacity at discharge: uses cane/walker Overall status at discharge: patient is progressing back to baseline - Diet and Activity Activity: as per physical therapy Diet: diabetic diet, low fat, low cholesterol, low salt diet
--- NOTE | 2018-07-04 14:00 | Physician Discharge Referral ---
ExtendedCare Referral Info Transfer To: Signature Provider in Charge after Transfer: PCP Institutional Level of Care: Skilled - Diagnosis (1) Wound infection after surgery Priority: Primary Status: Acute (2) Acute kidney injury Priority: Secondary Status: Acute (3) Anemia Priority: Secondary Status: Acute (4) Diabetes mellitus Priority: Secondary Status: Chronic (5) Hypertension Priority: Secondary Status: Chronic (6) Morbid obesity with BMI of 50.0-59.9, adult Priority: Secondary Status: Chronic Expected Duration of Placement: Less than 30 days Prognosis: Fair Aware of Diagnosis: Patient Aware of Prognosis: Patient - Transfer Medications Prescriptions: Doxycycline 100 mg PO BID 10 Days #20 capsule Levofloxacin [Levaquin] 750 mg PO DAILY 10 Days #10 tablet Home Medications: Albuterol Sulfate [Ventolin Hfa] 2 puff IH Q4H PRN 04/09/18 [History] Allopurinol [Zyloprim] 300 mg PO DAILY 04/09/18 [History] Atorvastatin [Lipitor] 40 mg PO HS 04/09/18 [History] Bimatoprost [Lumigan] 1 drop OP QPM 04/09/18 [History] BuPROPion SR (12 HR) [Wellbutrin SR] 150 mg PO BID 04/09/18 [History] Chlorthalidone 50 mg PO QAM 04/09/18 [History] Cholecalciferol (D-3) [Vitamin D] 5,000 unit PO DAILY 04/09/18 [History] Cyclosporine [Restasis] 1 drop BOTH EYES BID 04/09/18 [History] Diclofenac Sodium [Voltaren] 100 gm TP PRN PRN 04/09/18 [History] Fluticasone/Salmeterol [Advair 250-50 Diskus] 1 puff IH BID 04/09/18 [History] Levothyroxine Sodium [Levoxyl] 88 mcg PO DAILY 04/09/18 [History] Linaclotide [Linzess] 290 mcg PO DAILY 04/09/18 [History] Metoprolol [Lopressor] 50 mg PO BID 04/09/18 [History] Mirabegron [Myrbetriq] 50 mg PO DAILY 04/09/18 [History] Mirtazapine [Remeron] 15 mg PO HS 04/09/18 [History] Montelukast [Singulair] 10 mg PO DAILY 04/09/18 [History] Nitroglycerin [Nitrostat] 0.4 mg SL Q5M PRN 04/09/18 [History] Nortriptyline HCl 150 mg PO DAILY 04/09/18 [History] Pantoprazole Sodium [Protonix] 40 mg PO DAILY 04/09/18 [History] Pioglitazone HCl [Actos] 30 mg PO DAILY 04/09/18 [History] Potassium Chloride [Klor-Con 10] 10 meq PO DAILY 04/09/18 [History] Pregabalin [Lyrica] 200 mg PO BID 04/09/18 [History] SUMAtriptan Succinate [Imitrex] 100 mg PO Q2H PRN 04/09/18 [History] SitaGLIPtin [Januvia] 100 mg PO DAILY 04/09/18 [History] Timolol Maleate 0.5% 1 drop OP BID 04/09/18 [History] Tizanidine HCl 8 mg PO TID PRN 04/09/18 [History] Topiramate [Topamax] 200 mg PO BID 04/09/18 [History] hydrOXYzine HCl [Hydroxyzine HCl] 50 mg PO Q8H PRN 04/09/18 [History] rOPINIRole [Requip] 1 mg PO HS 04/09/18 [History] Aspirin Enteric Coated [Aspirin EC] 325 mg PO BID 10 Days #1 tablet. 04/15/18 [Rx] Docusate [Colace] 100 mg PO BID capsule 04/15/18 [Rx] HYDROcodone/Acet 7.5/325 mg [[place] 7.5-325 mg] 1 tab PO Q6H PRN 30 Days #4 tablet 04/15/18 [Rx] MOM Conc [MILK OF MAGNESIA conc] 5 ml PO HS PRN ud.liq 04/15/18 [Rx] Ondansetron ODT [Zofran ODT] 4 mg SL Q6HR PRN tab.rapdis 04/15/18 [Rx] Solifenacin Succinate [Vesicare] 10 mg PO DAILY 07/02/18 [History] Doxycycline 100 mg PO BID 10 Days #20 capsule 07/04/18 [Rx] Levofloxacin [Levaquin] 750 mg PO DAILY 10 Days #10 tablet 07/04/18 [Rx] Allergies/Adverse Reactions: Allergy/AdvReac Type Severity Reaction Status Date / Time Nefazodone [From Serzone] Allergy Rash Verified 12/09/16 14:49 - Respiratory Orders Oxygen / L per min (Maintain saturation greater than 90%) Smoking Cessation: Smoking cessation has been advised. For more information, call the [place] Tobacco Quit Line at 4-455-WLLN-NOW. - Lab Orders Lab Orders: Timi 17 - Ancillary Orders May use pressure relief devices daily prn, May consult with Dentist, Twisthand, Cardiovascular Lab Director PRN - Advance Directives Code Status: Full Code - Mobility Orders Chair, Ambulate - Rehabiliation Orders Rehab Potential: Fair Rehab Orders: Evaluation for Physical Therapy, Evaluation for Occupational Therapy - Treatments Skin tear care topically daily PRN per policy, May check for fecal impaction rectally daily PRN, Fleet enema rectally every other day PRN cleansing purposes - Diet Orders No Concentrated Sweets, Cardiac CERTIFICATION: I certify that the transfer of the above named patient to an Extended Care Facility is necessary for the continuing treatment of the diagnosis listed. The above information is true and accurate reflection of patient's current condition. Confidential - Redisclosure prohibited without a patient's written consent.
[2018-07-04 16:26] VITALS: BP 97/66
[2018-07-04] MEDS ORDERED: Aminoglycoside Consult 1 EACH MC ONE (17:08)
[2018-07-04] MEDS ORDERED: Piperacillin/Tazobactam 3.375 GM in 0.9 % Sodium Chloride Mini Bag 100 ML IVPB SCH (19:00)
[2018-07-04] MEDS ORDERED: MICONAZOLE NITRATE 57 GM TUBE TP SCH (21:00)
== END 2018-07-04 17:09 | DRG 857 ==
LOC: EMEROOARM 16:45 → 3ANU 16:45 → 3NENU 20:34 → SUATTDRO 07-02 03:44
PROVIDERS: ADMIT Internal Medicine; ATTEND Internal Medicine

== ENCOUNTER 2018-12-19 10:41 | Inpatient (IN) ==
[~2018-12-19 10:41] MED LIST: Ropivacaine/PF 0.5% 24.62 ML, EPINEPHrine 0.25 MG, Ketorolac 15 MG, Water for inj. (ste... IR ONE
[2018-12-19] MEDS ORDERED: CeFAZolin Syr 3,000MG/30 ML 3,000 MG/30 ML SYRINGE IVPB ONE (10:59)
[2018-12-19] MEDS ORDERED: Albuterol 2.5 MG/3 ML NEBULIZER IH ONE (10:59)
[2018-12-19] MEDS ORDERED: Ringers Solution, Lactated 1,000 ML IVC SCH ×2 (11:00→16:34)
--- NOTE | 2018-12-19 11:07 | Anesthesia Evaluation PreOp ---
Date of Encounter: 12/19/18 Time of Encounter: 11:17 - Past History Planned Operation: Right Distal Femoral Replacement Revision Cardiac History: HTN, Hyperlipidemia, Other (Known CAD/small Vessel dz not amenable to PCI) Pulmonary History: Asthma, COPD (home O2 qhs), ISIDRO Dx (Non-compliant w/ CPAP) HOME MANAGER History: Denies Any Significant HX Other Medical History: Diabetes Type II, Other (obesity BMI=55.9, fibromyalgia) Anesthesia History: No Prior Anesthetic Complications, Past Anesthesia Alcohol Use: none Drug use: none Medications and Allergies Albuterol Sulfate [Ventolin Hfa] 2 puff IH Q4H PRN 04/09/18 [History] Allopurinol [Zyloprim] 300 mg PO DAILY 04/09/18 [History] Atorvastatin [Lipitor] 40 mg PO HS 04/09/18 [History] Bimatoprost [Lumigan] 1 drop OP QPM 04/09/18 [History] Cholecalciferol (D-3) [Vitamin D] 5,000 unit PO DAILY 04/09/18 [History] Cyclosporine [Restasis] 1 drop BOTH EYES BID 04/09/18 [History] Diclofenac Sodium [Voltaren] 100 gm TP PRN PRN 04/09/18 [History] Levothyroxine Sodium [Levoxyl] 88 mcg PO DAILY 04/09/18 [History] Linaclotide [Linzess] 290 mcg PO DAILY 04/09/18 [History] Metoprolol [Lopressor] 50 mg PO BID 04/09/18 [History] Mirabegron [Myrbetriq] 50 mg PO DAILY 04/09/18 [History] Mirtazapine [Remeron] 15 mg PO HS 04/09/18 [History] Montelukast [Singulair] 10 mg PO DAILY 04/09/18 [History] Nitroglycerin [Nitrostat] 0.4 mg SL Q5M PRN 04/09/18 [History] Pantoprazole Sodium [Protonix] 40 mg PO DAILY 04/09/18 [History] Pioglitazone HCl [Actos] 30 mg PO DAILY 04/09/18 [History] Potassium Chloride [Klor-Con 10] 10 meq PO DAILY 04/09/18 [History] Pregabalin [Lyrica] 200 mg PO BID 04/09/18 [History] SUMAtriptan Succinate [Imitrex] 100 mg PO Q2H PRN 04/09/18 [History] SitaGLIPtin [Januvia] 100 mg PO DAILY 04/09/18 [History] Timolol Maleate 0.5% 1 drop OP BID 04/09/18 [History] Tizanidine HCl 8 mg PO TID PRN 04/09/18 [History] Topiramate [Topamax] 200 mg PO BID 04/09/18 [History] hydrOXYzine HCl [Hydroxyzine HCl] 50 mg PO Q8H PRN 04/09/18 [History] rOPINIRole [Requip] 1 mg PO HS 04/09/18 [History] Aspirin Enteric Coated [Aspirin EC] 325 mg PO BID 10 Days #1 tablet.dr 04/15/18 [Rx] Docusate [Colace] 100 mg PO BID capsule 04/15/18 [Rx] MOM Conc [MILK OF MAGNESIA conc] 5 ml PO HS PRN ud.liq 04/15/18 [Rx] Ondansetron ODT [Zofran ODT] 4 mg SL Q6HR PRN tab.rapdis 04/15/18 [Rx] Solifenacin Succinate [Vesicare] 10 mg PO DAILY 07/02/18 [History] Bisacodyl [Dulcolax] 10 mg RC DAILY PRN 12/19/18 [History] Furosemide [Lasix] 40 mg PO BID 12/19/18 [History] Ibuprofen [Motrin] 800 mg PO Q8HR PRN 12/19/18 [History] OxyCODONE/APAP 10/325 [Percocet 10/325 MG] 1 tab PO Q4HR PRN 12/19/18 [History] Oxycodone HCl [Roxybond] 10 mg PO Q6H PRN 12/19/18 [History] Allergy/AdvReac Type Severity Reaction Status Date / Time Nefazodone [From Serzone] Allergy Rash Verified 12/19/18 11:15 - Meds/Allergy Pre-op Review Medications Reviewed: Yes Allergies Reviewed: Yes Beta Blockers on Current Med List: Yes If Beta Blockers taken, Date/Time (Last Dose taken): 12/19/2018 at 0715 Anesthesia Results - Labs Laboratory Tests 12/18/18 12/18/18 12/18/18 16:30 16:30 16:30 WBC 6.0 Hgb 9.6 L Hct 31.8 L Plt Count 146 PT 13.3 H INR 1.2 APTT 38.4 H Sodium 138 Potassium 3.6 BUN 32 H Creatinine 1.08 - Imaging EKG: report reviewed (04/10/2018 baseline artifact complicates interpretation, probably sinus rhythm) Additional studies: 07/02/2018 Echo Impressions: LVEF 55-60%. Normal LV chamber size and wall thickness. Moderate left ventricular diastolic dysfunction. Normal right ventricular structure and function. Mildly dilated left atrium. Trace tricuspid regurgitation. No pulmonary hypertension. 06/26/2017 Stress Impression: Pharmacologic stress ECG is non-diagnostic for ischemia due to submaximal HR. Gated EF = 75%. Small sized, mild intensity, fixed anterior and inferior perfusion defects. Wall motion appears normal. These findings are most c/w artifact. Perfusion imaging was negative for ischemia or infarct. Anesthesia Exam O2 Sat Height 1.65 m Weight 152.407 kg O2 Sat by Pulse Oximetry 90 Vital Signs Temp Pulse Resp BP Pulse Ox 98.0 F 64 18 112/63 90 12/19/18 11:01 12/19/18 11:01 12/19/18 11:01 12/19/18 11:01 12/19/18 11:01 Blood Glucose* 71 Height: 5'5'' Weight: 336 lbs NPO (# of Hours): 8 Pain Scale: 9 (right knee) Pain Scale Used: Numeric (1 - 10) - HEENT Pupil (Motor): EOMI Mallampati: III Teeth: Edentulous Denture Type: Upper: Complete, Lower: Complete Oral Opening: Greater than 3 - HOME MANAGER LOC: Oriented HOME MANAGER Motor: Normal RUE, Normal LUE, Normal LLE, Normal Face, Deficit RLE HOME MANAGER Sensory: Normal: RUE, LUE, RLE, Face, Deficit: LLE - Cardiac Rhythm: Regular Murmur: Systolic - Pulmonary Breath Sounds: bilateral Clear Respiratory Effort: Symmetrical Anesthesia Assess/Plan ASA Score: 4 Level of consciousness: Cooperative, Oriented, Tranquil Anesthetic Plan: General Reason for No Neuroaxial/Regional Block: Patient refusal Monitoring Plan: Standard Monitors Recovery Plan: PACU
--- NOTE | 2018-12-19 11:32 | History & Physical Report ---
Date of Encounter: 12/19/18 Time of Encounter: 11:32 24 Hour HP Update - Instructions Instructions: If the History and Physical is less than 30 days old and was completed prior to A.M. admission and or procedure and has NOT been updated on calendar day of procedure please complete this update prior to performing procedure. - Update Patient reports changes in Medical Condition: No Changes in examination, assessment, or condition: No Changes in Medication: No Preop tests/diagnostics Reviewed: Yes Surgery Remains Indicated: Yes Consent for Planned Operative Procedure(s) Verified: Yes - Pre-Operative Checklist Preoperative Checklist Indicated: No Prophylactic Antibiotic Ordered: Yes Is VTE Prophylaxis Indicated?: Yes
[2018-12-19] MEDS ORDERED: Ethanol\\Acetic Acid\\Na Ace\\Ben 1,000 ML IRRIG.SOLN IR ONE ×2 (11:45→11:46)
[2018-12-19] MEDS ORDERED: Celecoxib 200 MG CAPSULE PO ONE (11:50)
[2018-12-19] MEDS ORDERED: *HR* OxyCODONE ER (12 HR) 10 MG TABLET PO ONE (11:54)
[2018-12-19] MEDS ORDERED: D5% in Lactated Ringers 1,000 ML IVC SCH (12:00)
[2018-12-19] MEDS ORDERED: EPHEDrine 50 MG/ML VIAL ONE (13:07)
[2018-12-19] MEDS ORDERED: *HR* Propofol 200 MG/20 ML VIAL IVP ONE (13:12)
[2018-12-19] MEDS ORDERED: *HR* Succinylcholine 200 MG/10 ML VIAL IVP ONE (13:12)
[2018-12-19] MEDS ORDERED: Dexamethasone 4 MG/ML VIAL ONE (13:12)
[2018-12-19] MEDS ORDERED: Ondansetron 4 MG/2 ML VIAL ONE (13:12)
[2018-12-19] MEDS ORDERED: *HR* FentaNYL (PF) 100 MCG/2 ML VIAL ONE (13:12)
[2018-12-19] MEDS ORDERED: Lidocaine -MPF 2% 2 ML VIAL ONE (13:12)
[2018-12-19] MEDS ORDERED: Ondansetron 4 MG/2 ML VIAL IVP ONE (13:31)
[2018-12-19] MEDS ORDERED: *HR* OxyCODONE Immed Rel 5 MG TABLET PO PRN (13:31)
--- NOTE | 2018-12-19 14:58 | Orthopedic Operative Note ---
Date of procedure: 12/19/18 Pre-op diagnosis: Loose right distal femoral replacement Post-op diagnosis: same Procedure: Procedure: Revision right distal femoral component, patellectomy Estimated blood loss: 500 mL Hardware: Biomet 7 cm elliptical femur 16 x 150 cemented stem 22 Ai axil yoke lock pin femoral bushings Findings: Grossly loose femoral component, no purulent material no active visible infection. Procedure: Patient brought to the operative placement operative table after general anesthesia was administered the right lower extremity was prepped and draped in the sterile surgical fashion patient received IV advice prior skin incision and elliptical incision was made around the previous incision incision made through skin and subcutaneous tissue, hemostasis was obtained Bovie cautery. Using careful blunt dissection the extensor mechanism was identified, a medial parapatellar tendon approach was performed care was taken to preserve the tissue along the elastic the patella and to protect the patella tendon. The patella was dislocated the patella was excised. Entering the joint revealed normal fluid and serosanguineous in nature. This was sent for Gram stain and culture. The femoral component was grossly loose was disassembled, from the tibial component, and the femoral component was removed by hand. Patient had a solid distal proximal decision was made to move forward with a cemented stem. A 16 x 150 cemented stem with a 7 cm elliptical femur was cemented in place and held in place until the cement hardened. Trial reduction revealed best motion and stability with a 22 Ai. Patient had significant scar from the previous surgery so motion was limited. Incision was made for a 22 mm Ai. This was seated and the connection between the femoral component and tibial component was assembled. The knee sat for 2 minutes with an antibacterial solution both before implantation and after implantation was irrigated before implantation and after implantation with an antibacterial pulse irrigation solution. This was a different solution then before. It was irrigated before and after with pulse irrigation normal saline. The extensor mechanism was closed over a TAMIR drain with a running #2 PDS suture subcutaneous tissues irrigated and closed deep #1 PDS suture superficially with 0 PDS suture skin was closed with skin tamara patient placed in a sterile dressing and knee immobilizer extubated and transferred to recovery in stable condition. Anesthesia: GETA Surgeon: Gm Cameron Was there an facilities assistant present: No Estimated blood loss (cc): 500 Condition: stable Disposition: PACU
[2018-12-19] MEDS: *HR* HYDROmorphone (PF) 1 MG/ML SYRINGE IVP PRN ×2 (15:10→15:15)
--- NOTE | 2018-12-19 16:25 | Discharge Summary ---
<Gm Cameron - Last Filed: 12/19/18 16:23> Orders not resulted at time of discharge: Pending orders 12/19/18 13:48 Culture,Anaerobic [RM] Routine Culture,Wound [RM] Routine 12/19/18 14:35 Surgical Pathology [PTH] Routine Date of Encounter: 12/19/18 - Discharge Diagnosis (1) Type 2 diabetes mellitus Priority: Secondary Status: Chronic Qualifiers: Diabetes mellitus buttermaker continuous churn insulin use: unspecified jail insulin use status Diabetes mellitus complication status: with unspecified complications Qualified Code(s): E11.8 - Type 2 diabetes mellitus with unspecified complications (2) Loose right total knee arthroplasty Priority: Primary Status: Chronic Qualifiers: Encounter type: subsequent encounter Qualified Code(s): T84.032D - Mechanical loosening of internal right knee prosthetic joint, subsequent encou nter (3) Status post revision of total replacement of right knee Priority: Primary Status: Acute (4) Hx of essential hypertension Priority: Secondary Status: Chronic (5) Morbid obesity with BMI of 50.0-59.9, adult Priority: Secondary Status: Chronic - Hospital Course Hospital course: Ms. Lula Villafana is a 58 year old female - Time Spent with Patient Total time spent providing and/or coordinating discharge services: - Discharge Medications Prescriptions: New Ferrous Sulfate 325 mg PO BIDWM tablet Lidocaine Patch [Lidoderm 5% patch] 1 each TP DAILY adh..patch Enoxaparin [Lovenox] 30 mg SQ Q12HCO syringe Doxycycline 100 mg PO BID #14 capsule Continued Linaclotide [Linzess] 290 mcg PO 1200 Topiramate [Topamax] 200 mg PO BID SitaGLIPtin [Januvia] 100 mg PO DAILY Mirtazapine [Remeron] 15 mg PO HS Albuterol Sulfate [Ventolin Hfa] 2 puff IH Q4H PRN PRN Reason: Dyspnea SUMAtriptan Succinate [Imitrex] 100 mg PO Q2H PRN PRN Reason: Migraine Headache rOPINIRole [Requip] 1 mg PO HS Levothyroxine Sodium [Levoxyl] 88 mcg PO DAILY Timolol Maleate 0.5% 1 drop BOTH EYES BID Cyclosporine [Restasis] 1 drop BOTH EYES BID Pregabalin [Lyrica] 200 mg PO BID Allopurinol [Zyloprim] 300 mg PO 1200 Tizanidine HCl 8 mg PO TID PRN PRN Reason: muscle spasms hydrOXYzine HCl [Hydroxyzine HCl] 50 mg PO Q8H PRN PRN Reason: Itching Pioglitazone HCl [Actos] 30 mg PO 1200 Pantoprazole Sodium [Protonix] 40 mg PO DAILY Montelukast [Singulair] 10 mg PO DAILY Cholecalciferol (D-3) [Vitamin D] 5,000 unit PO 1200 Mirabegron [Myrbetriq] 50 mg PO DAILY Metoprolol [Lopressor] 50 mg PO BID Potassium Chloride [Klor-Con 10] 10 meq PO BID Nitroglycerin [Nitrostat] 0.4 mg SL Q5M PRN PRN Reason: Chest Pain Atorvastatin [Lipitor] 40 mg PO HS Bimatoprost [Lumigan] 1 drop BOTH EYES QPM Diclofenac Sodium [Voltaren] 1 appl TP PRN PRN PRN Reason: Pain Docusate [Colace] 100 mg PO BID capsule MOM Conc [MILK OF MAGNESIA conc] 5 ml PO HS PRN ud.liq PRN Reason: Constipation Ondansetron ODT [Zofran ODT] 4 mg SL Q6HR PRN tab.rapdis PRN Reason: Nausea And Vomiting Solifenacin Succinate [Vesicare] 10 mg PO DAILY Furosemide [Lasix] 40 mg PO BID Oxycodone HCl [Roxybond] 10 mg PO Q6H PRN PRN Reason: Pain OxyCODONE/APAP 10/325 [Percocet 10/325 MG] 1 tab PO Q4HR PRN PRN Reason: Pain Ibuprofen [Motrin] 800 mg PO Q8HR PRN PRN Reason: Mild To Moderate Pain Bisacodyl [Dulcolax] 10 mg RC DAILY PRN PRN Reason: Constipation Changed Aspirin Enteric Coated [Aspirin EC] 325 mg PO DAILY 28 Days #1 tablet.dr Home Medications: Albuterol Sulfate [Ventolin Hfa] 2 puff IH Q4H PRN 04/09/18 [History] Allopurinol [Zyloprim] 300 mg PO 1200 04/09/18 [History] Atorvastatin [Lipitor] 40 mg PO HS 04/09/18 [History] Bimatoprost [Lumigan] 1 drop BOTH EYES QPM 04/09/18 [History] Cholecalciferol (D-3) [Vitamin D] 5,000 unit PO 1200 04/09/18 [History] Cyclosporine [Restasis] 1 drop BOTH EYES BID 04/09/18 [History] Diclofenac Sodium [Voltaren] 1 appl TP PRN PRN 04/09/18 [History] Levothyroxine Sodium [Levoxyl] 88 mcg PO DAILY 04/09/18 [History] Linaclotide [Linzess] 290 mcg PO 1200 04/09/18 [History] Metoprolol [Lopressor] 50 mg PO BID 04/09/18 [History] Mirabegron [Myrbetriq] 50 mg PO DAILY 04/09/18 [History] Mirtazapine [Remeron] 15 mg PO HS 04/09/18 [History] Montelukast [Singulair] 10 mg PO DAILY 04/09/18 [History] Nitroglycerin [Nitrostat] 0.4 mg SL Q5M PRN 04/09/18 [History] Pantoprazole Sodium [Protonix] 40 mg PO DAILY 04/09/18 [History] Pioglitazone HCl [Actos] 30 mg PO 1200 04/09/18 [History] Potassium Chloride [Klor-Con 10] 10 meq PO BID 04/09/18 [History] Pregabalin [Lyrica] 200 mg PO BID 04/09/18 [History] SUMAtriptan Succinate [Imitrex] 100 mg PO Q2H PRN 04/09/18 [History] SitaGLIPtin [Januvia] 100 mg PO DAILY 04/09/18 [History] Timolol Maleate 0.5% 1 drop BOTH EYES BID 04/09/18 [History] Tizanidine HCl 8 mg PO TID PRN 04/09/18 [History] Topiramate [Topamax] 200 mg PO BID 04/09/18 [History] hydrOXYzine HCl [Hydroxyzine HCl] 50 mg PO Q8H PRN 04/09/18 [History] rOPINIRole [Requip] 1 mg PO HS 04/09/18 [History] Docusate [Colace] 100 mg PO BID capsule 04/15/18 [Rx] MOM Conc [MILK OF MAGNESIA conc] 5 ml PO HS PRN ud.liq 04/15/18 [Rx] Ondansetron ODT [Zofran ODT] 4 mg SL Q6HR PRN tab.rapdis 04/15/18 [Rx] Solifenacin Succinate [Vesicare] 10 mg PO DAILY 07/02/18 [History] Bisacodyl [Dulcolax] 10 mg RC DAILY PRN 12/19/18 [History] Furosemide [Lasix] 40 mg PO BID 12/19/18 [History] Ibuprofen [Motrin] 800 mg PO Q8HR PRN 12/19/18 [History] OxyCODONE/APAP 10/325 [Percocet 10/325 MG] 1 tab PO Q4HR PRN 12/19/18 [History] Oxycodone HCl [Roxybond] 10 mg PO Q6H PRN 12/19/18 [History] Aspirin Enteric Coated [Aspirin EC] 325 mg PO DAILY 28 Days #1 tablet. 12/24/18 [Rx] Doxycycline 100 mg PO BID #14 capsule 12/24/18 [Rx] Enoxaparin [Lovenox] 30 mg SQ Q12HCO syringe 12/24/18 [Rx] Ferrous Sulfate 325 mg PO BIDWM tablet 12/24/18 [Rx] Lidocaine Patch [Lidoderm 5% patch] 1 each TP DAILY adh..patch 12/24/18 [Rx] Allergies/Adverse Reactions: Allergy/AdvReac Type Severity Reaction Status Date / Time Nefazodone [From Serzone] Allergy Rash Verified 12/19/18 11:15 Primary care physician: Darek Teresa MD Labs on day of discharge: Labs from last 24 hours 12/19/18 10:58 POC Glucose 71 Preliminary micro results at discharge 12/19/18 13:48 Wound Culture - Preliminary Right Knee Culture is incubating. 12/19/18 13:48 Anaerobic Culture - Preliminary Right Knee Culture is incubating. - Impressions ITS Impressions Knee X-Ray 12/19/18 11:32 IMPRESSION: Status post revision of right knee arthroplasty. No acute postoperative complication. D/ / 12/19/2018 15:39:38 Ruddy Jaquez MD / [email or web address] Interpreting Provider: Ruddy Jaquez MD - Patient Status Disposition: Transfer SNF Condition: Good - Discharge Instructions Follow Up With: Taty Solano PAC [Physician Carry In Worker] - 01/02/19 10:15 am Darek Teresa MD [Primary Care Provider] - Additional Instructions: Discharge Instructions: Total Knee Replacement Please call [facility] ([phone]), your Primary Care Physician, or report to the Emergency Room if you have any of the following symptoms: Nausea, vomiting, fever greater that 101.5, swelling, chest pain, shortness of breath, increased pain/redness/drainage/odor for your incision site, numbness/tingling, or any other concerning symptoms. ACTIVITY:Weight-bearing as tolerated. You may progress off support (crutches or walker) as tolerated. Incentive Spirometer 10 times an hour. MEDICATIONS: Upon discharge resume your home medications. Take all the medications as prescribed. Take a stool softener if taking narcotic pain medications. Stool softeners are only effective if you drink enough fluids. Drink 6-8 glass of water or fluids a day, unless this is not allowed for another health problem. Despite using stool softeners, if you haven't had a bowel movement in 3 days, please switch to a gentle laxative. Gentle laxatives are sold over the counter. You should have a bowel movement within 24 hours, if not call the office. You will be discharged from the hospital with a prescription for pain medication. You are encouraged to decrease the use of narcotic pain medication as tolerated. Should you require a refill, please call the office. [facility] prescribes narcotic pain medication for only 4-6 weeks after surgery. If you require pain medication beyond this time period, you may be referred to your Primary Care Physician or to the Pain Clinic for further evaluation. Plan ahead for refills on pain medication as many narcotics either need to be picked up at the office or mailed. It is best to call 48-72 hours in advance of needing a prescription refill so you don't run out of medication. To help control the post-operative pain, you may take NSAIDs (Aleve,Advil, Motrin, Ibuprofen, Naprosyn) or Tylenol as prescribed on the bottle in addition to the pain medication. ANTICOAGULATION (blood thinners): Continue your Aspirin, Lovenox or Coumadin as prescribed to help prevent a blood clot in the leg or in the lungs. As long as your incision remains dry and you tolerate the NSAIDs (Aleve, Advil, Motrin, ibuprofen, naprosyn), it is OK to use the NSAIDS while you are taking your anticoagulation medication. Should your incision start to drain, stop the NSAID and contact our office. Common symptoms of blood clot in the legs include: localized pain, swelling, calf tenderness, redness or discoloration of the skin. Blood clot in the lung symptoms include: shortness of breath, rapid pulse, sweating, and chest pain that worsens with deep breathing, coughing up blood, lightheadedness, feelings of anxiety. If you experience any of these symptoms notify your physician immediately, go to the emergency room, or if having trouble breathing, call 911. WOUND CARE: Leave the dressing on for 7 to 10days. You may change the dressing if it becomes saturated greater than 50%. Do not get the dressing wet at anytime. Wash your hands with antibacterial soap, rinse and dry prior to any wound care. If you have tamara the visiting nurse or rehab facility can remove the stapes 10-14 days after surgery and place steri-strips across the wound. Leave the steri-strips in place until they fall off on their won. You may let water from the shower run on top of the steri-strips. If you do not have a visiting nurse or rehab facility, you will need to return to the office at 10-14 days for the tamara to be removed. If you have itching or redness around the dressing call the office. FOLLOW-UP: Please follow up with your surgeon in the orthopedic clinic in 4 weeks from the day of surgery. If you have tamara that need to be removed, you will need to come back to the office in 10-14 days from the day of surgery. <Taty Mata - Last Filed: 12/24/18 17:12> Orders not resulted at time of discharge: Pending orders 12/19/18 13:48 Culture,Anaerobic [RM] Routine 12/19/18 14:35 Surgical Pathology [PTH] Routine Date of Encounter: 12/24/18 Time of Encounter: 12:10 - Discharge Diagnosis (1) Status post revision of total replacement of right knee Priority: Primary Status: Acute (2) Loose right total knee arthroplasty Priority: Primary Status: Chronic Qualifiers: Encounter type: subsequent encounter Qualified Code(s): T84.032D - Mechanical loosening of internal right knee prosthetic joint, subsequent encounter (3) Anemia due to acute blood loss Priority: Secondary Status: Acute (4) Type 2 diabetes mellitus Priority: Secondary Status: Chronic Qualifiers: Diabetes mellitus jail insulin use: unspecified jail insulin use status Diabetes mellitus complication status: with unspecified complications Qualified Code(s): E11.8 - Type 2 diabetes mellitus with unspecified complications (5) DVT prophylaxis Priority: Secondary Status: Acute (6) Frequent falls Priority: Secondary Status: Acute (7) Hypertension Priority: Secondary Status: Chronic Qualifiers: Hypertension type: essential hypertension Qualified Code(s): I10 - Essential (primary) hypertension (8) Morbid obesity with BMI of 50.0-59.9, adult Priority: Secondary Status: Chronic (9) CHF (congestive heart failure) Priority: Secondary Status: Chronic Qualifiers: Heart failure type: unspecified Heart failure chronicity: unspecified Qualified Code(s): I50.9 - Heart failure, unspecified (10) Neurogenic bladder Priority: Secondary Status: Chronic (11) ISIDRO (obstructive sleep apnea) Priority: Secondary Status: Chronic (12) Peripheral edema Priority: Secondary Status: Chronic - Hospital Course Hospital course: Ms. Lula Villafana is a 58 year old female status post Revision right distal femoral component, patellectomy 12/19/18. She developed postoperative anemia and received a total of 6 units of RBC transfusion and hgb is now stable. Patient was noted to have a cough which she later admitted has been going on for over a month but CXR was obtain due to the increase in fluid volume from transfusions and patient's history of CHF. CXR showed consistent with her known CHF with mild vascular congestion. She was continued on lasix and has not had any worsening in symptoms otherwise. She was noted to have a decrease in O2sat from high 90s to lower 90s today but she was documented at 90 upon admission before surgery and she admittedly has not been using her IS as instructed despite education on risks of not using this device. Will require close follow up at [facility] where she has been chronically managed for her CHF and will need closely monitored for any signs or symptoms of future CHF exacerbations. Due to her obesity and comorbidities as well as history of multiple surgeries and peripheral edema with add doxycycline for infection prophylaxis per Dr. Cameron. Reviewed case with Dr. Cameron who agreed patient is stable for discharge back to ECF at this time. PCR - POD#5. Patient seen at bedside, A&O x 3 Afebrile, vital signs stable. BP stable after lasix given. Labs reviewed. H/H - 9.2/28.6 improved, asymptomatic (has received total #6 RBC transfusions since surgery) Pain control: will add lidocaine patch at this time Participating in PT. WBAT with brace All questions and concerns addressed. Educated on use of incentive spirometer. She has been noted by staff to not be complaint with use despite education on risks of not using. Encouraged ambulation and proper hydration. Patient educated on post-operative restrictions and post-operative care. Assessment and plan: Continue with postoperative care Discharge plan: ECF, discharge today. - Time Spent with Patient Total time spent providing and/or coordinating discharge services: Date of admission: 12/19/18 16:24 Primary care physician: Darek Teresa MD Consults: 12/19/18 16:34 Consult to Nutrition [CONS] Routine Comment: Consulting Provider: NUTRITION Reason for Dietary Consult: Other Other:: Proper nutrition to facilitate wound healing Consult to Occupational Therapy [CONS] Routine Comment: Evaluate, develop and implement POC Reason for Consult: post knee surgery Does patient have active BEDREST order?: No Is patient medically & hemodynamically stable?: Yes Consult to Orthopedic Navigator [CONS] [CONS] Routine Consult to Physical Therapy [CONS] Routine Comment: Evaluate, develop and impliment POC Reason for Consult: post knee surgery Does patient have active BEDREST order?: No Is patient medically & hemodynamically stable?: Yes Consult to Sales Team Recruiter [CONS] Routine Reason for SW Consult: post op joint replacement RT Post Op Consult [CONS] Routine Discharging clinician: Gm Cameron Anticipated date of discharge: 12/24/18 Labs on day of discharge: Labs from last 24 hours 12/24/18 12/24/18 12/23/18 06:30 06:30 20:34 WBC 6.6 RBC 3.09 L Hgb 9.2 L Hct 28.6 L MCV 92.6 MCH 29.8 MCHC 32.2 RDW 16.3 H Plt Count 128 L MPV 10.9 Immature Gran % 0.5 Seg Neutrophils % 77.9 Lymphocytes % 8.5 Monocytes % 7.9 Eosinophils % 4.9 Basophils % 0.3 Neutrophils # 5.1 Lymphocytes # 0.6 Monocytes # 0.5 Eosinophils # 0.3 Basophils # 0.0 Sodium 143 Potassium 3.4 L Chloride 105 Carbon Dioxide 29 BUN 30 H Creatinine 0.91 Est GFR ( Amer) > 60 Est GFR (Non-Af Amer) > 60 BUN/Creatinine Ratio 33 H Glucose 101 POC Glucose 120 H Calculated Osmolality 302 H Calcium 8.7 Crossmatch MTS Gel Crossmatch 12/23/18 12/23/18 12/23/18 16:51 11:49 07:34 WBC RBC Hgb Hct MCV MCH MCHC RDW Plt Count MPV Immature Gran % Seg Neutrophils % Lymphocytes % Monocytes % Eosinophils % Basophils % Neutrophils # Lymphocytes # Monocytes # Eosinophils # Basophils # Sodium Potassium Chloride Carbon Dioxide BUN Creatinine Est GFR ( Amer) Est GFR (Non-Af Amer) BUN/Creatinine Ratio Glucose POC Glucose 101 H 92 88 Calculated Osmolality Calcium Crossmatch MTS Gel Crossmatch 12/20/18 07:35 WBC RBC Hgb Hct MCV MCH MCHC RDW Plt Count MPV Immature Gran % Seg Neutrophils % Lymphocytes % Monocytes % Eosinophils % Basophils % Neutrophils # Lymphocytes # Monocytes # Eosinophils # Basophils # Sodium Potassium Chloride Carbon Dioxide BUN Creatinine Est GFR ( Amer) Est GFR (Non-Af Amer) BUN/Creatinine Ratio Glucose POC Glucose Calculated Osmolality Calcium Crossmatch See Detail MTS Gel Crossmatch See Detail Preliminary micro results at discharge 12/19/18 13:48 Anaerobic Culture - Preliminary Right Knee Culture is incubating. Short CBC 12/24/18 Range/Units 06:30 WBC 6.6 (4.3-11.1) K/mcL Hgb 9.2 L (11.5-15.4) g/dL Hct 28.6 L (35.3-44.9) % Plt Count 128 L (140-400) K/mcL Neutrophils # 5.1 (1.6-8.9) K/mcL BMP 12/24/18 Range/Units 06:30 Sodium 143 (136-145) mEq/L Potassium 3.4 L (3.5-5.1) mEq/L Chloride 105 (98-107) mEq/L Carbon Dioxide 29 (23-29) mEq/L BUN 30 H (8-23) mg/dL Creatinine 0.91 (0.60-1.20) mg/dL Glucose 101 (70-105) mg/dL Calcium 8.7 (8.6-10.3) mg/dL - Impressions ITS Impressions Knee X-Ray 12/19/18 11:32 IMPRESSION: Status post revision of right knee arthroplasty. No acute postoperative complication. D/ / 12/19/2018 15:39:38 Ruddy Jaquez MD / edward Interpreting Provider: Ruddy Jaquez MD Chest X-Ray 12/23/18 17:08 IMPRESSION: Findings suggesting congestive heart failure with mild interstitial edema and small pleural effusions. D/ / Alfred Olguin MD / Alfred Olguin MD Interpreting Provider: Alfred Olguin MD Knee X-Ray 12/24/18 14:20 IMPRESSION: 1. Revision right knee arthroplasty appears unchanged, without osteolysis or fracture. 2. Stable appearing soft tissue edema about the knee and distal right thigh. 3. Stable surgical skin closure tamara anterior overlying the distal right thigh, knee and proximal right lower leg. 4. Overlying splint. D/ / Matthew Rowland / Matthew Rowland Interpreting Provider: Matthew Rowland - Patient Status Functional capacity at discharge: uses cane/walker Overall status at discharge: patient is progressing back to baseline - Diet and Activity Activity: ambulate only with your walker, as per physical therapy Diet: advance to your usual diet
[2018-12-19] MEDS ORDERED: Temazepam 15 MG CAPSULE PO PRN (16:34)
[2018-12-19] MEDS ORDERED: Sennosides 8.6 MG TABLET PO PRN (16:34)
[2018-12-19] MEDS ORDERED: Naloxone 0.4 MG/ML INJ IVP PRN (16:34)
[2018-12-19] MEDS ORDERED: Bisacodyl 10 MG RECTAL SUPPOSITORY RC PRN (16:34)
[2018-12-19] MEDS ORDERED: traMADol 50 MG TABLET PO PRN (16:34)
[2018-12-19] MEDS ORDERED: tiZANidine 4 MG TABLET PO PRN (16:34)
[2018-12-19] MEDS ORDERED: Ondansetron 4 MG/2 ML VIAL IVP PRN (16:34)
[2018-12-19] MEDS ORDERED: hydrOXYzine pamoate 25 MG CAPSULE PO PRN (16:34)
[2018-12-19] MEDS ORDERED: Nitroglycerin 0.4 MG TAB.SUBL SL PRN (16:34)
[2018-12-19] MEDS ORDERED: SUMAtriptan succinate 50 MG TABLET PO PRN (16:34)
[2018-12-19] MEDS ORDERED: MOM Conc 10 ML UD.LIQ PO PRN ×2 (16:34)
[2018-12-19] MEDS ORDERED: *HR* Promethazine 25 MG/ML VIAL IVP PRN (16:34)
--- NOTE | 2018-12-19 17:14 | Physician Discharge Referral ---
ExtendedCare Referral Info Transfer To: [facility] Provider in Charge: Dr. Gm Cameron - Diagnosis (1) Status post revision of total replacement of right knee Priority: Primary Status: Acute (2) Loose right total knee arthroplasty Priority: Primary Status: Chronic (3) Type 2 diabetes mellitus Priority: Secondary Status: Chronic (4) Hypertension Priority: Secondary Status: Chronic (5) Morbid obesity with BMI of 50.0-59.9, adult Priority: Secondary Status: Chronic Expected Duration of Placement: less than 30 days Prognosis: Good Aware of Diagnosis: Patient Aware of Prognosis: Patient - Transfer Medications Prescriptions: Aspirin Enteric Coated [Aspirin EC] 325 mg PO BID #20 tablet. OxyCODONE Immed Rel [Roxicodone 5 MG] 5 mg PO Q6HR PRN 5 Days #20 tablet PRN Reason: Pain OxyCODONE Immed Rel [Roxicodone 5 MG] 5 mg PO Q6HR PRN 5 Days #20 tablet PRN Reason: Pain Home Medications: Albuterol Sulfate [Ventolin Hfa] 2 puff IH Q4H PRN 04/09/18 [History] Allopurinol [Zyloprim] 300 mg PO 1200 04/09/18 [History] Atorvastatin [Lipitor] 40 mg PO HS 04/09/18 [History] Bimatoprost [Lumigan] 1 drop BOTH EYES QPM 04/09/18 [History] Cholecalciferol (D-3) [Vitamin D] 5,000 unit PO 1200 04/09/18 [History] Cyclosporine [Restasis] 1 drop BOTH EYES BID 04/09/18 [History] Diclofenac Sodium [Voltaren] 1 appl TP PRN PRN 04/09/18 [History] Levothyroxine Sodium [Levoxyl] 88 mcg PO DAILY 04/09/18 [History] Linaclotide [Linzess] 290 mcg PO 1200 04/09/18 [History] Metoprolol [Lopressor] 50 mg PO BID 04/09/18 [History] Mirabegron [Myrbetriq] 50 mg PO DAILY 04/09/18 [History] Mirtazapine [Remeron] 15 mg PO HS 04/09/18 [History] Montelukast [Singulair] 10 mg PO DAILY 04/09/18 [History] Nitroglycerin [Nitrostat] 0.4 mg SL Q5M PRN 04/09/18 [History] Pantoprazole Sodium [Protonix] 40 mg PO DAILY 04/09/18 [History] Pioglitazone HCl [Actos] 30 mg PO 1200 04/09/18 [History] Potassium Chloride [Klor-Con 10] 10 meq PO BID 04/09/18 [History] Pregabalin [Lyrica] 200 mg PO BID 04/09/18 [History] SUMAtriptan Succinate [Imitrex] 100 mg PO Q2H PRN 04/09/18 [History] SitaGLIPtin [Januvia] 100 mg PO DAILY 04/09/18 [History] Timolol Maleate 0.5% 1 drop BOTH EYES BID 04/09/18 [History] Tizanidine HCl 8 mg PO TID PRN 04/09/18 [History] Topiramate [Topamax] 200 mg PO BID 04/09/18 [History] hydrOXYzine HCl [Hydroxyzine HCl] 50 mg PO Q8H PRN 04/09/18 [History] rOPINIRole [Requip] 1 mg PO HS 04/09/18 [History] Aspirin Enteric Coated [Aspirin EC] 325 mg PO BID 10 Days #1 tablet. 04/15/18 [Rx] Docusate [Colace] 100 mg PO BID capsule 04/15/18 [Rx] MOM Conc [MILK OF MAGNESIA conc] 5 ml PO HS PRN ud.liq 04/15/18 [Rx] Ondansetron ODT [Zofran ODT] 4 mg SL Q6HR PRN tab.rapdis 04/15/18 [Rx] Solifenacin Succinate [Vesicare] 10 mg PO DAILY 07/02/18 [History] Aspirin Enteric Coated [Aspirin EC] 325 mg PO BID #20 tablet. 12/19/18 [Rx] Bisacodyl [Dulcolax] 10 mg RC DAILY PRN 12/19/18 [History] Furosemide [Lasix] 40 mg PO BID 12/19/18 [History] Ibuprofen [Motrin] 800 mg PO Q8HR PRN 12/19/18 [History] OxyCODONE Immed Rel [Roxicodone 5 MG] 5 mg PO Q6HR PRN 5 Days #20 tablet 12/19/18 [Rx] OxyCODONE Immed Rel [Roxicodone 5 MG] 5 mg PO Q6HR PRN 5 Days #20 tablet 12/19/18 [Rx] OxyCODONE/APAP 10/325 [Percocet 10/325 MG] 1 tab PO Q4HR PRN 12/19/18 [History] Oxycodone HCl [Roxybond] 10 mg PO Q6H PRN 12/19/18 [History] Allergies/Adverse Reactions: Allergy/AdvReac Type Severity Reaction Status Date / Time Nefazodone [From Serzone] Allergy Rash Verified 12/19/18 11:15 - Respiratory Orders Smoking Cessation: Smoking cessation has been advised. For more information, call the [place] Tobacco Quit Line at 0-217-XXIB-NOW. - Ancillary Orders May use pressure relief devices daily prn, May go on SOHEILA w/family/respon constitution party w/meds at nurse discretion PRN, May consult with Dentist, Varnish Melter, Supervisor Pipelines PRN - Mobility Orders Chair, Ambulate - Rehabiliation Orders Rehab Potential: Good Rehab Orders: Evaluation for Physical Therapy, Evaluation for Occupational Therapy Other: Total Knee replacement Precautions x 6 weeks Apply cold therapy wrap 3-6x/day for 20 minutes at a time. Encourage ambulation throughout the day and incentive spirometer 10x/hour. Elevate affected extremity above heart as tolerated. Brace: Wear knee immobilizer at night x 2 weeks. - Treatments Skin tear care topically daily PRN per policy List/Other: Opsite placed. Keep dressing intact until first follow up appointment. If greater than 50% saturated, notify office, remove dressing and place appropriate dressing back in place. Leave Zipline intact. Opsite dressing is water resistant, not water-proof. OK to shower, but do not get dressing wet. - Diet Orders Regular CERTIFICATION: I certify that the transfer of the above named patient to an Extended Care Facility is necessary for the continuing treatment of the diagnosis listed. The above information is true and accurate reflection of patient's current condition. Confidential - Redisclosure prohibited without a patient's written consent.
[2018-12-19] MEDS ORDERED: *HR* Enoxaparin 30 MG/0.3 ML SYRINGE SQ SCH (18:00)
[2018-12-19] MEDS: Ascorbic Acid 500 MG TABLET PO SCH (18:51)
[2018-12-19] MEDS: *HR* Enoxaparin 30 MG/0.3 ML SYRINGE SQ SCH (19:03)
[2018-12-19] MEDS: Pregabalin 50 MG CAPSULE PO SCH (22:29)
[2018-12-19] MEDS: ceFAZolin sodium 3,000 MG in 0.9 % Sodium Chloride 100 ML IVPB SCH (22:29)
[2018-12-19] MEDS: rOPINIRole 1 MG TABLET PO SCH (22:30)
[2018-12-19] MEDS: (Cyclosporine [Restasis] 1 DROP) OP SCH (22:30)
[2018-12-19] MEDS: Mirtazapine 15 MG TABLET PO SCH (22:30)
[2018-12-19] MEDS: Topiramate 100 MG TABLET PO SCH (22:30)
[2018-12-19] MEDS: Latanoprost 2.5 ML BOTTLE BOTH EYES SCH (22:44)
[2018-12-19] MEDS: Furosemide 40 MG TABLET PO SCH (22:48)
[2018-12-19] MEDS: Aspirin Enteric Coated 325 MG Tablet PO SCH (22:49)
[2018-12-20 04:05] LABS: Basophils % 0.1 %; Hematocrit 23.5 % (35.3-44.9); Hemoglobin 7.1 g/dL (11.5-15.4); Immature Granulocytes % 0.5 % (0-4); Immature Platelets 1.9 % (1.1-6.1); Lymphocytes # 0.5 K/mcL (0.6-4.6); Lymphocytes % 4.9 %; Mean Corpuscular HGB Conc 30.2 g/dL (31.6-35.5); Mean Corpuscular Hemoglobin 28.4 pg (28.0-33.3); Mean Platelet Volume 10.8 fL (9.4-12.4); Monocytes # 0.6 K/mcL (0.0-1.3); Monocytes % 6.4 %; Neutrophils # 8.2 K/mcL (1.6-8.9); Platelet Count 180 K/mcL (140-400); Red Cell Distribution Width 16.1 % (11.5-14.5); Segmented Neutrophils % 88.1 %
[2018-12-20 04:37] LABS: BUN/Creatinine Ratio 28 (6-26); Blood Urea Nitrogen 30 mg/dL (8-23); Calcium 8.7 mg/dL (8.6-10.3); Carbon Dioxide 30 mEq/L (23-29); Chloride 105 mEq/L (98-107); Glucose 146 mg/dL (70-105); Osmolality,Calculated 299 (280-300); Potassium 3.8 mEq/L (3.5-5.1); Sodium 140 mEq/L (136-145); eGFR For Non-African Americans 53 (> 60)
[2018-12-20] MEDS: *HR* Enoxaparin 30 MG/0.3 ML SYRINGE SQ SCH ×2 (05:17→18:25)
[2018-12-20] MEDS: *HR* OxyCODONE Immed Rel 5 MG TABLET PO PRN ×2 (05:17→10:32)
[2018-12-20] MEDS: ceFAZolin sodium 3,000 MG in 0.9 % Sodium Chloride 100 ML IVPB SCH (05:17)
[2018-12-20] MEDS ORDERED: Furosemide 20 MG/2 ML VIAL IVP PRN (07:07)
--- NOTE | 2018-12-20 08:59 | Orthopedics Progress Note ---
Date of Encounter: 12/20/18 Time of Encounter: 08:58 Subjective Interval history: S: Patient is seen today and has no complaints. Expected postoperative pain O: Afebrile and vital signs are stable Operative extremity dressing is clean, dry, and intact. Neurovascularly intact distally Hemoglobin noted A: Right revision knee arthroplasty with patellectomy november P: Resume postoperative care Transfused 2 units today Objective Vital signs: Vital Signs Temp Pulse Resp BP Pulse Ox 12/20/18 08:33 97.9 F 77 17 99/61 12/20/18 03:00 97.9 F 75 16 124/66 93 12/19/18 23:24 97.5 F L 77 18 137/71 98 12/19/18 19:03 97.7 F 50 15 114/70 100 12/19/18 17:30 97.6 F 60 15 114/73 100 12/19/18 17:00 97.5 F L 62 15 126/72 97 12/19/18 16:31 97.5 F L 64 14 124/63 96 12/19/18 15:59 97.4 F L 61 12 99 12/19/18 15:49 61 12 112/65 99 12/19/18 15:39 58 12 116/65 99 12/19/18 15:29 97.5 F L 62 12 110/74 99 12/19/18 15:19 67 12 99/59 97 12/19/18 15:09 61 12 92/66 98 12/19/18 14:59 97.5 F L 61 12 111/82 100 12/19/18 11:17 18 112/63 90 12/19/18 11:01 98.0 F 64 18 112/63 90 Intake and Output 12/19/18 12/20/18 12/20/18 23:59 07:59 15:59 Intake Total 200 / 200 Output Total 670 / 1170 40 / 40 Balance -670 / -640 160 / 160 Intake: IV Fluids 200 / 200 Ancef 3,000 MG In 0.9 % Sodium 200 / 200 Chloride 100 ML @ 666.667 mls/ hr IVPB Q8H [facility] Rx#:[id number] Output: Catheter 500 / 500 Wound Drainage 170 / 170 40 / 40 Right thigh 170 / 170 40 / 40 Other: Blood Glucose* 139 118 - Labs CBC & BMP: 12/20/18 03:35 12/20/18 03:35 Labs: Abnormal lab results RBC 2.50 M/mcL (3.82-4.97) L 12/20/18 03:35 Hgb 7.1 g/dL (11.5-15.4) L D 12/20/18 03:35 Hct 23.5 % (35.3-44.9) L 12/20/18 03:35 MCHC 30.2 g/dL (31.6-35.5) L 12/20/18 03:35 RDW 16.1 % (11.5-14.5) H 12/20/18 03:35 0.5 K/mcL (0.6-4.6) L 12/20/18 03:35 Carbon Dioxide 30 mEq/L (23-29) H 12/20/18 03:35 BUN 30 mg/dL (8-23) H 12/20/18 03:35 Est GFR (Non-Af Amer) 53 (> 60) L 12/20/18 03:35 28 (6-26) H 12/20/18 03:35 Glucose 146 mg/dL (70-105) H 12/20/18 03:35 MTS Gel Crossmatch See Detail 12/20/18 07:35 Consult Discharge Plan - Plan Referrals: Darek Teresa MD [Primary Care Provider] - Prescriptions: Aspirin Enteric Coated [Aspirin EC] 325 mg PO BID #20 tablet. OxyCODONE Immed Rel [Roxicodone 5 MG] 5 mg PO Q6HR PRN 5 Days #20 tablet PRN Reason: Pain OxyCODONE Immed Rel [Roxicodone 5 MG] 5 mg PO Q6HR PRN 5 Days #20 tablet PRN Reason: Pain
[2018-12-20] MEDS: Aspirin Enteric Coated 325 MG Tablet PO SCH ×2 (10:01→19:55)
[2018-12-20] MEDS: Ascorbic Acid 500 MG TABLET PO SCH ×2 (10:02→18:24)
[2018-12-20] MEDS: Topiramate 100 MG TABLET PO SCH ×2 (10:03→19:54)
[2018-12-20] MEDS: Furosemide 40 MG TABLET PO SCH ×2 (10:03→18:26)
[2018-12-20] MEDS: Multivit/Ca/Min/Fe/FA 1 TAB TABLET PO SCH (10:03)
[2018-12-20] MEDS: *HR* SitaGLIPtin 100 MG TABLET PO SCH (10:03)
[2018-12-20] MEDS: Pregabalin 50 MG CAPSULE PO SCH ×2 (10:03→19:55)
[2018-12-20] MEDS: (Mirabegron [Myrbetriq] 50 MG) PO SCH (10:08)
[2018-12-20] MEDS: (Cyclosporine [Restasis] 1 DROP) OP SCH ×2 (10:08→20:11)
[2018-12-20] MEDS ORDERED: 0.9 % Sodium Chloride 250 ML ONE ×2 (11:01→16:11)
[2018-12-20] MEDS: *HR* Pioglitazone 30 MG TABLET PO SCH (11:59)
[2018-12-20] MEDS: Cholecalciferol (D-3) 1,000 UNIT TABLET PO SCH (11:59)
[2018-12-20] MEDS: (Linaclotide [Linzess] 290 MCG) PO SCH (12:00)
[2018-12-20] MEDS: Acetaminophen IV 1,000 MG/100 ML INFUS..BTL IVPB SCH ×2 (13:58→19:53)
[2018-12-20] MEDS: Latanoprost 2.5 ML BOTTLE BOTH EYES SCH (18:31)
[2018-12-20] MEDS: rOPINIRole 1 MG TABLET PO SCH (19:54)
[2018-12-20] MEDS: Mirtazapine 15 MG TABLET PO SCH (19:55)
[2018-12-20 21:31] LABS: Hematocrit 22.9 % (35.3-44.9)
[2018-12-20 21:32] LABS: Hemoglobin 7.2 g/dL (11.5-15.4)
[2018-12-20] MEDS ORDERED: 0.9 % Sodium Chloride 250 ML IVC SCH (23:00)
[2018-12-21] MEDS: Acetaminophen IV 1,000 MG/100 ML INFUS..BTL IVPB SCH ×4 (00:25→17:51)
[2018-12-21] MEDS ORDERED: 0.9 % Sodium Chloride 250 ML ONE (01:56)
[2018-12-21] MEDS: HYDROcodone BIT/Homatropine 5 MG TABLET PO PRN ×2 (04:33→19:49)
[2018-12-21] MEDS: *HR* Enoxaparin 30 MG/0.3 ML SYRINGE SQ SCH ×2 (06:24→17:03)
[2018-12-21] MEDS: *HR* OxyCODONE Immed Rel 5 MG TABLET PO PRN ×3 (06:28→16:33)
--- NOTE | 2018-12-21 08:01 | Orthopedics Progress Note ---
Date of Encounter: 12/21/18 Time of Encounter: 08:00 Subjective Interval history: S: Patient is seen today and has no complaints. Expected postoperative pain, improved from yesterday O: Afebrile and vital signs are stable Operative extremity dressing is clean, dry, and intact. Neurovascularly intact distally 100 out and the drain overnight Hemoglobin noted A: Right revision knee arthroplasty with patellectomy november P: Resume postoperative care We will keep drain for now. Transfuse 1 unit today Objective Vital signs: Vital Signs Temp Pulse Resp BP Pulse Ox 12/21/18 07:48 98.4 F 73 104/67 94 12/21/18 07:35 98.1 F 61 20 104/63 93 12/21/18 04:11 97.9 F 14 101/62 95 12/21/18 04:09 97.9 F 70 14 99/60 93 12/21/18 03:57 99.0 F 76 16 108/64 96 12/20/18 22:50 98.7 F 72 16 90/60 90 12/20/18 19:37 99.1 F 73 18 101/66 95 12/20/18 16:39 98.5 F 68 83/51 97 12/20/18 16:24 98.6 F 69 83/55 97 12/20/18 15:48 98.3 F 68 18 100/58 95 12/20/18 14:01 98.5 F 73 95/60 98 12/20/18 11:45 98.5 F 72 91/53 97 12/20/18 11:22 98.6 F 72 100/66 94 12/20/18 10:00 78 122/86 99 12/20/18 08:33 97.9 F 77 17 99/61 Intake and Output 12/20/18 12/21/18 12/21/18 23:59 07:59 15:59 Intake Total 550 / 1290 350 / 350 Output Total 20 / 1155 Balance 530 / 135 350 / 350 Intake: IV Fluids 200 / 400 Ofirmev 1,000 mg/100 ml 1,000 200 / 200 mg In 100 ml @ 400 mls/hr IVPB Q6HR [facility] Rx#:[id number] Blood Product 350 / 650 350 / 350 Rbcs Leuko Poor As-1 Unit 350 / 350 [id number] Rbcs Leuko Poor As-3 Ph Unit 350 / 350 [id number] Output: Wound Drainage Right thigh Other: Weight 152.5 kg Blood Glucose* 120 91 Patient Weight 12/21/18 23:59 Weight 152.5 kg - Labs CBC & BMP: 12/20/18 21:15 12/20/18 03:35 Labs: Abnormal lab results RBC 2.50 M/mcL (3.82-4.97) L 12/20/18 03:35 Hgb 7.2 g/dL (11.5-15.4) L 12/20/18 21:15 Hct 22.9 % (35.3-44.9) L 12/20/18 21:15 MCHC 30.2 g/dL (31.6-35.5) L 12/20/18 03:35 RDW 16.1 % (11.5-14.5) H 12/20/18 03:35 0.5 K/mcL (0.6-4.6) L 12/20/18 03:35 Carbon Dioxide 30 mEq/L (23-29) H 12/20/18 03:35 BUN 30 mg/dL (8-23) H 12/20/18 03:35 Est GFR (Non-Af Amer) 53 (> 60) L 12/20/18 03:35 28 (6-26) H 12/20/18 03:35 Glucose 146 mg/dL (70-105) H 12/20/18 03:35 POC Glucose 139 mg/dL (70-99) H 12/19/18 20:44 Crossmatch See Detail 12/20/18 07:35 MTS Gel Crossmatch See Detail 12/20/18 07:35 Consult Discharge Plan - Plan Referrals: Darek Teresa MD [Primary Care Provider] - Prescriptions: Aspirin Enteric Coated [Aspirin EC] 325 mg PO BID #20 tablet. OxyCODONE Immed Rel [Roxicodone 5 MG] 5 mg PO Q6HR PRN 5 Days #20 tablet PRN Reason: Pain OxyCODONE Immed Rel [Roxicodone 5 MG] 5 mg PO Q6HR PRN 5 Days #20 tablet PRN Reason: Pain
[2018-12-21 08:04] LABS: Basophils % 0.4 %; Eosinophils # 0.2 K/mcL (0.0-0.6); Eosinophils % 2.9 %; Hematocrit 24.1 % (35.3-44.9); Hemoglobin 7.8 g/dL (11.5-15.4); Immature Granulocytes % 0.7 % (0-4); Lymphocytes % 14.1 %; Mean Corpuscular HGB Conc 32.4 g/dL (31.6-35.5); Mean Corpuscular Hemoglobin 29.8 pg (28.0-33.3); Monocytes # 0.7 K/mcL (0.0-1.3); Monocytes % 10.3 %; Neutrophils # 5.1 K/mcL (1.6-8.9); Platelet Count 110 K/mcL (140-400); Red Blood Count 2.62 M/mcL (3.82-4.97); Red Cell Distribution Width 15.9 % (11.5-14.5); Segmented Neutrophils % 71.6 %
[2018-12-21 08:23] LABS: Calcium 8.5 mg/dL (8.6-10.3); Potassium 3.7 mEq/L (3.5-5.1)
[2018-12-21] MEDS: Pregabalin 50 MG CAPSULE PO SCH ×2 (09:39→19:49)
[2018-12-21] MEDS: *HR* SitaGLIPtin 100 MG TABLET PO SCH (09:39)
[2018-12-21] MEDS: Ascorbic Acid 500 MG TABLET PO SCH ×2 (09:39→16:33)
[2018-12-21] MEDS: Topiramate 100 MG TABLET PO SCH ×2 (09:39→19:49)
[2018-12-21] MEDS: Furosemide 40 MG TABLET PO SCH ×3 (09:40→18:07)
[2018-12-21] MEDS: Multivit/Ca/Min/Fe/FA 1 TAB TABLET PO SCH (09:40)
[2018-12-21] MEDS: (Mirabegron [Myrbetriq] 50 MG) PO SCH (09:40)
[2018-12-21] MEDS: Aspirin Enteric Coated 325 MG Tablet PO SCH ×2 (09:40→19:50)
[2018-12-21] MEDS: (Cyclosporine [Restasis] 1 DROP) OP SCH ×2 (09:40→20:14)
[2018-12-21] MEDS: Cholecalciferol (D-3) 1,000 UNIT TABLET PO SCH (12:39)
[2018-12-21] MEDS: *HR* Pioglitazone 30 MG TABLET PO SCH (12:39)
[2018-12-21] MEDS: (Linaclotide [Linzess] 290 MCG) PO SCH (12:39)
[2018-12-21 14:28] LABS: Hemoglobin 8.6 g/dL (11.5-15.4)
[2018-12-21] MEDS: Latanoprost 2.5 ML BOTTLE BOTH EYES SCH (16:34)
[2018-12-21] MEDS: rOPINIRole 1 MG TABLET PO SCH (19:49)
[2018-12-21] MEDS: Mirtazapine 15 MG TABLET PO SCH (19:50)
[2018-12-22] MEDS: Acetaminophen IV 1,000 MG/100 ML INFUS..BTL IVPB SCH ×4 (01:16→17:44)
[2018-12-22 07:29] LABS: Hematocrit 27.9 % (35.3-44.9); Hemoglobin 8.7 g/dL (11.5-15.4); Mean Corpuscular HGB Conc 31.2 g/dL (31.6-35.5); Mean Corpuscular Hemoglobin 29.1 pg (28.0-33.3); Mean Corpuscular Volume 93.3 fL (83.0-100.0); Mean Platelet Volume 10.6 fL (9.4-12.4); Platelet Count 119 K/mcL (140-400); Red Blood Count 2.99 M/mcL (3.82-4.97); Red Cell Distribution Width 16.3 % (11.5-14.5)
[2018-12-22 07:48] LABS: Calcium 8.8 mg/dL (8.6-10.3); Potassium 3.6 mEq/L (3.5-5.1)
[2018-12-22] MEDS: Furosemide 40 MG TABLET PO SCH ×2 (08:32→17:32)
[2018-12-22] MEDS: *HR* SitaGLIPtin 100 MG TABLET PO SCH (08:32)
[2018-12-22] MEDS: Multivit/Ca/Min/Fe/FA 1 TAB TABLET PO SCH (08:32)
[2018-12-22] MEDS: Aspirin Enteric Coated 325 MG Tablet PO SCH ×2 (08:32→22:01)
[2018-12-22] MEDS: Ascorbic Acid 500 MG TABLET PO SCH ×2 (08:32→17:42)
[2018-12-22] MEDS: Pregabalin 50 MG CAPSULE PO SCH ×2 (08:33→22:01)
[2018-12-22] MEDS: Topiramate 100 MG TABLET PO SCH ×2 (08:33→22:01)
[2018-12-22] MEDS: *HR* Enoxaparin 30 MG/0.3 ML SYRINGE SQ SCH ×2 (08:33→17:42)
[2018-12-22] MEDS: (Cyclosporine [Restasis] 1 DROP) OP SCH ×2 (08:39→22:03)
[2018-12-22] MEDS: (Mirabegron [Myrbetriq] 50 MG) PO SCH (08:39)
[2018-12-22] MEDS: *HR* OxyCODONE Immed Rel 5 MG TABLET PO PRN ×2 (08:48→22:20)
[2018-12-22] MEDS: HYDROcodone BIT/Homatropine 5 MG TABLET PO PRN (11:58)
[2018-12-22] MEDS: *HR* Pioglitazone 30 MG TABLET PO SCH (12:52)
[2018-12-22] MEDS: Cholecalciferol (D-3) 1,000 UNIT TABLET PO SCH (12:52)
[2018-12-22] MEDS: (Linaclotide [Linzess] 290 MCG) PO SCH (12:53)
[2018-12-22] MEDS: Latanoprost 2.5 ML BOTTLE BOTH EYES SCH (17:43)
--- NOTE | 2018-12-22 18:43 | Orthopedics Progress Note ---
Date of Encounter: 12/22/18 Time of Encounter: 09:00 Subjective Interval history: S: Patient is seen today and has no complaints. Expected postoperative pain, improved from yesterday O: Afebrile and vital signs are stable Operative extremity dressing is clean, dry, and intact. Neurovascularly intact distally A: Right revision knee arthroplasty with patellectomy P: Resume postoperative care Orthopedically stable Patient wishing to stay to talk to Dr. Cameron tomorrow. Objective Vital signs: Vital Signs Temp Pulse Resp BP Pulse Ox 12/22/18 15:35 98.2 F 73 16 101/68 99 12/22/18 11:14 98.0 F 76 18 114/72 96 12/22/18 07:38 97.8 F 100 16 137/84 95 12/22/18 04:33 98.9 F 70 16 111/68 96 12/21/18 23:32 98.5 F 72 16 106/69 94 Intake and Output 12/22/18 12/22/18 12/22/18 07:59 15:59 23:59 Intake Total 650 / 1230 580 / 1230 Output Total 2200 / 4450 1600 / 4450 650 / 4450 Balance -1550 / -3220 -1020 / -3220 -650 / -3220 Intake: IV Fluids 200 / 300 100 / 300 Ofirmev 1,000 mg/100 ml 1,000 200 / 300 100 / 300 mg In 100 ml @ 400 mls/hr IVPB Q6HR REPLACED BY [facility] Rx#:[id number] Oral 450 / 930 480 / 930 Output: Urine 1800 / 1800 Catheter 400 / 2650 1600 / 2650 650 / 2650 Urethral (Chiu) 650 / 650 Other: Meal Lunch Percent of Meal Consumed 100% Blood Glucose* 96 99 - Labs CBC & BMP: 12/22/18 07:19 12/22/18 07:19 Labs: Abnormal lab results RBC 2.99 M/mcL (3.82-4.97) L 12/22/18 07:19 Hgb 8.7 g/dL (11.5-15.4) L 12/22/18 07:19 Hct 27.9 % (35.3-44.9) L 12/22/18 07:19 MCHC 31.2 g/dL (31.6-35.5) L 12/22/18 07:19 RDW 16.3 % (11.5-14.5) H 12/22/18 07:19 Plt Count 119 K/mcL (140-400) L 12/22/18 07:19 0.5 K/mcL (0.6-4.6) L 12/20/18 03:35 Carbon Dioxide 30 mEq/L (23-29) H 12/20/18 03:35 BUN 31 mg/dL (8-23) H 12/22/18 07:19 1.24 mg/dL (0.60-1.20) H 12/22/18 07:19 Est GFR ( Amer) 53 (> 60) L 12/22/18 07:19 Est GFR (Non-Af Amer) 44 (> 60) L 12/22/18 07:19 28 (6-26) H 12/20/18 03:35 Glucose 146 mg/dL (70-105) H 12/20/18 03:35 POC Glucose 101 mg/dL (70-99) H 12/21/18 20:10 Calcium 8.5 mg/dL (8.6-10.3) L 12/21/18 07:50 Crossmatch See Detail 12/20/18 07:35 MTS Gel Crossmatch See Detail 12/20/18 07:35 Consult Discharge Plan - Plan Referrals: Darek Teresa MD [Primary Care Provider] - Prescriptions: Aspirin Enteric Coated [Aspirin EC] 325 mg PO BID #20 tablet. OxyCODONE Immed Rel [Roxicodone 5 MG] 5 mg PO Q6HR PRN 5 Days #20 tablet PRN Reason: Pain OxyCODONE Immed Rel [Roxicodone 5 MG] 5 mg PO Q6HR PRN 5 Days #20 tablet PRN Reason: Pain
[2018-12-22] MEDS: rOPINIRole 1 MG TABLET PO SCH (22:01)
[2018-12-22] MEDS: Mirtazapine 15 MG TABLET PO SCH (22:02)
[2018-12-23] MEDS: Acetaminophen IV 1,000 MG/100 ML INFUS..BTL IVPB SCH ×4 (00:01→17:05)
[2018-12-23] MEDS: *HR* OxyCODONE Immed Rel 5 MG TABLET PO PRN (04:41)
--- NOTE | 2018-12-23 06:28 | Orthopedics Progress Note ---
Date of Encounter: 12/23/18 Time of Encounter: 06:27 - Assessment and Plan (1) Type 2 diabetes mellitus Current Visit: Yes Status: Chronic Qualifiers: Diabetes mellitus intermediate insulin use: unspecified meterman insulin use status Diabetes mellitus complication status: with unspecified complications Qualified Code(s): E11.8 - Type 2 diabetes mellitus with unspecified complications (2) Loose right total knee arthroplasty Current Visit: Yes Status: Chronic Qualifiers: Encounter type: subsequent encounter Qualified Code(s): T84.032D - [facility] anical loosening of internal right knee prosthetic joint, subsequent encounter (3) Status post revision of total replacement of right knee Current Visit: Yes Status: Acute (4) Hx of essential hypertension Current Visit: No Status: Chronic (5) Morbid obesity with BMI of 50.0-59.9, adult Current Visit: No Status: Chronic (6) Anemia due to acute blood loss Current Visit: Yes Status: Acute Subjective Interval history: Patient was seen this morning doing well without complaints. Afebrile vital signs stable. Operative extremity: Neurovascularly intact Dressing clean dry and intact Calves nontender Assessment and plan: Continue with postoperative care Labs pending plan for discharge Objective Vital signs: Vital Signs Temp Pulse Resp BP Pulse Ox 12/23/18 03:52 98.4 F 75 17 106/71 95 12/23/18 00:11 98.5 F 75 15 111/71 94 12/22/18 21:54 71 105/71 12/22/18 21:46 98.9 F 72 17 106/69 94 12/22/18 15:35 98.2 F 73 16 101/68 99 12/22/18 11:14 98.0 F 76 18 114/72 96 12/22/18 07:38 97.8 F 100 16 137/84 95 Intake and Output 12/22/18 12/22/18 12/23/18 15:59 23:59 07:59 Intake Total 580 / 1330 100 / 1330 100 / 100 Output Total 1600 / 5450 1650 / 5450 500 / 500 Balance -1020 / -4120 -1550 / -4120 -400 / -400 Intake: IV Fluids 100 / 400 100 / 400 100 / 100 Ofirmev 1,000 mg/100 ml 1,000 100 / 400 100 / 400 100 / 100 mg In 100 ml @ 400 mls/hr IVPB Q6HR [facility] Rx#:[id number] Oral 480 / 930 Output: Catheter 1600 / 3650 1650 / 3650 500 / 500 Urethral (Chiu) 650 / 650 Other: Meal Lunch Percent of Meal Consumed 100% Stool Size Small Stool Consistency soft Stool Color Brown Weight 145 kg Blood Glucose* 96 98 Patient Weight 12/23/18 23:59 Weight 145 kg - Labs CBC & BMP: 12/22/18 07:19 12/22/18 07:19 Labs: Abnormal lab results RBC 2.99 M/mcL (3.82-4.97) L 12/22/18 07:19 Hgb 8.7 g/dL (11.5-15.4) L 12/22/18 07:19 Hct 27.9 % (35.3-44.9) L 12/22/18 07: MCHC 31.2 g/dL (31.6-35.5) L 12/22/18 07:19 RDW 16.3 % (11.5-14.5) H 12/22/18 07:19 Plt Count 119 K/mcL (140-400) L 12/22/18 07:19 0.5 K/mcL (0.6-4.6) L 12/20/18 03:35 Carbon Dioxide 30 mEq/L (23-29) H 12/20/18 03:35 BUN 31 mg/dL (8-23) H 12/22/18 07:19 1.24 mg/dL (0.60-1.20) H 12/22/18 07:19 Est GFR ( Amer) 53 (> 60) L 12/22/18 07:19 Est GFR (Non-Af Amer) 44 (> 60) L 12/22/18 07:19 28 (6-26) H 12/20/18 03:35 Glucose 146 mg/dL (70-105) H 12/20/18 03:35 POC Glucose 101 mg/dL (70-99) H 12/21/18 20:10 Calcium 8.5 mg/dL (8.6-10.3) L 12/21/18 07:50 Crossmatch See Detail 12/20/18 07:35 MTS Gel Crossmatch See Detail 12/20/18 07:35 Consult Discharge Plan - Plan Referrals: Darek Teresa MD [Primary Care Provider] - Prescriptions: Aspirin Enteric Coated [Aspirin EC] 325 mg PO BID #20 tablet. OxyCODONE Immed Rel [Roxicodone 5 MG] 5 mg PO Q6HR PRN 5 Days #20 tablet PRN Reason: Pain OxyCODONE Immed Rel [Roxicodone 5 MG] 5 mg PO Q6HR PRN 5 Days #20 tablet PRN Reason: Pain
[2018-12-23 07:02] LABS: Hematocrit 26.9 % (35.3-44.9); Hemoglobin 8.2 g/dL (11.5-15.4); Mean Corpuscular HGB Conc 30.5 g/dL (31.6-35.5); Mean Corpuscular Hemoglobin 28.8 pg (28.0-33.3); Mean Corpuscular Volume 94.4 fL (83.0-100.0); Mean Platelet Volume 11.1 fL (9.4-12.4); Platelet Count 135 K/mcL (140-400); Red Blood Count 2.85 M/mcL (3.82-4.97); Red Cell Distribution Width 16.2 % (11.5-14.5)
[2018-12-23 07:21] LABS: Calcium 8.6 mg/dL (8.6-10.3); Potassium 3.6 mEq/L (3.5-5.1)
[2018-12-23] MEDS: *HR* Enoxaparin 30 MG/0.3 ML SYRINGE SQ SCH ×2 (07:22→17:04)
[2018-12-23] MEDS: Pregabalin 50 MG CAPSULE PO SCH ×2 (07:44→22:31)
[2018-12-23] MEDS: *HR* SitaGLIPtin 100 MG TABLET PO SCH (07:44)
[2018-12-23] MEDS: Aspirin Enteric Coated 325 MG Tablet PO SCH ×2 (07:44→22:30)
[2018-12-23] MEDS: Multivit/Ca/Min/Fe/FA 1 TAB TABLET PO SCH (07:45)
[2018-12-23] MEDS: (Cyclosporine [Restasis] 1 DROP) OP SCH ×2 (07:45→22:33)
[2018-12-23] MEDS: (Mirabegron [Myrbetriq] 50 MG) PO SCH (07:45)
[2018-12-23] MEDS: Furosemide 40 MG TABLET PO SCH ×2 (07:45→17:48)
[2018-12-23] MEDS: Ascorbic Acid 500 MG TABLET PO SCH ×2 (07:45→17:48)
[2018-12-23] MEDS: Topiramate 100 MG TABLET PO SCH ×2 (07:45→22:31)
[2018-12-23] MEDS: Cholecalciferol (D-3) 1,000 UNIT TABLET PO SCH (11:39)
[2018-12-23] MEDS: *HR* Pioglitazone 30 MG TABLET PO SCH (11:39)
[2018-12-23] MEDS: (Linaclotide [Linzess] 290 MCG) PO SCH (11:40)
--- NOTE | 2018-12-23 17:09 | Event Note ---
Date of Encounter: 12/23/18 Time of Encounter: 09:00 Date of procedure: 12/19/18 Pre-op diagnosis: Loose right distal femoral replacement Post-op diagnosis: same Procedure: Revision right distal femoral component, patellectomy POD#4 - Patient seen at bedside. A&Ox3 Dressing and incision c/d/i No calf tenderness, erythema, or warmth. Neurovascularly intact b/l LE. Brace in place in locked extension Labwork, vitals, and medications reviewed. Pain control: Adequate Participating in PT. All questions and concerns addressed. Educated on use of incentive spirometer, ambulation, and hydration. Patient educated on post-operative restrictions and care. Addressed: Patient c/o cough - states is slightly worse than usual but has been ongoing for a month per patient. CXR r/o pna. Vitals appear steady. D/C plan: ECF - pending insurance authorization
[2018-12-23] MEDS: Latanoprost 2.5 ML BOTTLE BOTH EYES SCH (17:49)
[2018-12-23] MEDS: rOPINIRole 1 MG TABLET PO SCH (22:30)
[2018-12-23] MEDS: Mirtazapine 15 MG TABLET PO SCH (22:31)
[2018-12-24] MEDS: Acetaminophen IV 1,000 MG/100 ML INFUS..BTL IVPB SCH ×3 (01:01→11:59)
--- NOTE | 2018-12-24 06:19 | Orthopedics Progress Note ---
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 Diabetes mellitus complication status: with unspecified complications Qualified Code(s): E11.8 - Type 2 diabetes mellitus with unspecified complications (2) Loose right total knee arthroplasty Current Visit: Yes Status: Chronic Qualifiers: Encounter type: subsequent encounter Qualified Code(s): T84.032D - [facility] anical loosening of internal right knee prosthetic joint, subsequent encounter (3) Status post revision of total replacement of right knee Current Visit: Yes Status: Acute (4) Hx of essential hypertension Current Visit: No Status: Chronic (5) Morbid obesity with BMI of 50.0-59.9, adult Current Visit: No Status: Chronic (6) Anemia due to acute blood loss Current Visit: Yes Status: Acute Subjective Interval history: Patient was seen this morning doing well without complaints. Afebrile vital signs stable. Operative extremity: Neurovascularly intact Dressing clean dry and intact Calves nontender Assessment and plan: Continue with postoperative care Labs pending plan for discharge today Objective Vital signs: Vital Signs Temp Pulse Resp BP Pulse Ox 12/24/18 03:56 99.6 F 72 15 105/69 92 12/23/18 22:34 98.0 F 107 18 130/79 100 12/23/18 19:17 98.2 F 80 16 117/61 98 12/23/18 18:59 97.7 F 77 18 123/77 100 12/23/18 17:11 97.8 F 71 17 92/58 12/23/18 16:56 98.6 F 72 16 104/56 98 12/23/18 16:24 98.6 F 70 16 108/71 97 12/23/18 13:58 98.6 F 70 16 88/55 100 12/23/18 09:48 97.8 F 72 15 107/68 95 Intake and Output 12/23/18 12/23/18 12/24/18 15:59 23:59 07:59 Intake Total 240 / 1240 800 / 1240 Output Total 1750 / 2650 850 / 850 Balance 240 / -1410 -950 / -1410 -850 / -850 Intake: IV Fluids 100 / 300 Ofirmev 1,000 mg/100 ml 1,000 100 / 300 mg In 100 ml @ 400 mls/hr IVPB Q6HR [facility] Rx#:[id number] Oral 240 / 240 Blood Product 0 / 700 700 / 700 Rbcs Leuko Poor As-1 Unit 350 / 350 [id number] Rbcs Leuko Poor As-3 2nd Unit 0 / 350 350 / 350 [id number] Output: Catheter 1750 / 2650 850 / 850 Urethral (Chiu) 850 / 850 Other: Meal Breakfast Percent of Meal Consumed 100% Weight 148.2 kg Blood Glucose* 92 120 Patient Weight 12/24/18 23:59 Weight 148.2 kg - Labs CBC & BMP: 12/23/18 06:31 12/23/18 06:31 Labs: Abnormal lab results RBC 2.85 M/mcL (3.82-4.97) L 12/23/18 06:31 Hgb 8.2 g/dL (11.5-15.4) L 12/23/18 06:31 Hct 26.9 % (35.3-44.9) L 12/23/18 06:31 MCHC 30.5 g/dL (31.6-35.5) L 12/23/18 06:31 RDW 16.2 % (11.5-14.5) H 12/23/18 06:31 Plt Count 135 K/mcL (140-400) L 12/23/18 06:31 0.5 K/mcL (0.6-4.6) L 12/20/18 03:35 Carbon Dioxide 31 mEq/L (23-29) H 12/23/18 06:31 BUN 33 mg/dL (8-23) H 12/23/18 06:31 1.24 mg/dL (0.60-1.20) H 12/22/18 07:19 Est GFR ( Amer) 58 (> 60) L 12/23/18 06:31 Est GFR (Non-Af Amer) 48 (> 60) L 12/23/18 06:31 28 (6-26) H 12/23/18 06:31 Glucose 146 mg/dL (70-105) H 12/20/18 03:35 POC Glucose 120 mg/dL (70-99) H 12/23/18 20:34 Calcium 8.5 mg/dL (8.6-10.3) L 12/21/18 07:50 Crossmatch See Detail 12/20/18 07:35 MTS Gel Crossmatch See Detail 12/20/18 07:35 Consult Discharge Plan - Plan Referrals: Darek Teresa MD [Primary Care Provider] - Prescriptions: Aspirin Enteric Coated [Aspirin EC] 325 mg PO BID #20 tablet.
[2018-12-24] MEDS: *HR* Enoxaparin 30 MG/0.3 ML SYRINGE SQ SCH (06:33)
[2018-12-24 06:43] LABS: Basophils % 0.3 %; Eosinophils # 0.3 K/mcL (0.0-0.6); Eosinophils % 4.9 %; Hematocrit 28.6 % (35.3-44.9); Hemoglobin 9.2 g/dL (11.5-15.4); Immature Granulocytes % 0.5 % (0-4); Lymphocytes # 0.6 K/mcL (0.6-4.6); Lymphocytes % 8.5 %; Mean Corpuscular HGB Conc 32.2 g/dL (31.6-35.5); Mean Corpuscular Hemoglobin 29.8 pg (28.0-33.3); Mean Corpuscular Volume 92.6 fL (83.0-100.0); Mean Platelet Volume 10.9 fL (9.4-12.4); Monocytes # 0.5 K/mcL (0.0-1.3); Monocytes % 7.9 %; Neutrophils # 5.1 K/mcL (1.6-8.9); Platelet Count 128 K/mcL (140-400); Red Blood Count 3.09 M/mcL (3.82-4.97); Red Cell Distribution Width 16.3 % (11.5-14.5); Segmented Neutrophils % 77.9 %
[2018-12-24 07:00] LABS: BUN/Creatinine Ratio 33 (6-26); Blood Urea Nitrogen 30 mg/dL (8-23); Calcium 8.7 mg/dL (8.6-10.3); Carbon Dioxide 29 mEq/L (23-29); Chloride 105 mEq/L (98-107); Glucose 101 mg/dL (70-105); Osmolality,Calculated 302 (280-300); Potassium 3.4 mEq/L (3.5-5.1); Sodium 143 mEq/L (136-145); eGFR For Non-African Americans > 60 (> 60)
[2018-12-24] MEDS: Topiramate 100 MG TABLET PO SCH (08:22)
[2018-12-24] MEDS: Ascorbic Acid 500 MG TABLET PO SCH ×2 (08:22→17:39)
[2018-12-24] MEDS: Pregabalin 50 MG CAPSULE PO SCH (08:23)
[2018-12-24] MEDS: *HR* SitaGLIPtin 100 MG TABLET PO SCH (08:23)
[2018-12-24] MEDS: Furosemide 40 MG TABLET PO SCH ×2 (08:23→17:39)
[2018-12-24] MEDS: Aspirin Enteric Coated 325 MG Tablet PO SCH (08:23)
[2018-12-24] MEDS: Multivit/Ca/Min/Fe/FA 1 TAB TABLET PO SCH (08:23)
[2018-12-24] MEDS: (Cyclosporine [Restasis] 1 DROP) OP SCH (08:24)
[2018-12-24] MEDS: (Mirabegron [Myrbetriq] 50 MG) PO SCH (08:24)
[2018-12-24] MEDS: *HR* Pioglitazone 30 MG TABLET PO SCH (12:00)
[2018-12-24] MEDS: Cholecalciferol (D-3) 1,000 UNIT TABLET PO SCH (12:00)
[2018-12-24] MEDS: (Linaclotide [Linzess] 290 MCG) PO SCH (12:08)
[2018-12-24] MEDS ORDERED: Furosemide 20 MG/2 ML VIAL IVP ONE (12:31)
--- NOTE | 2018-12-24 15:16 | Event Note ---
Date of Encounter: 12/24/18 Time of Encounter: 12:10
[2018-12-24 17:43] VITALS: BP 98/59
== END 2018-12-24 17:40 | DRG 467 ==
LOC: SAMDAY 10:41 → 3NENU 16:24
PROVIDERS: ADMIT Orthopaedic Surgery; ATTEND Orthopaedic Surgery

== ENCOUNTER 2019-05-01 18:45 | Inpatient (IN) ==
[2019-05-01] MEDS ORDERED: Ertapenem 1,000 MG in 0.9 % Sodium Chloride Mini Bag 100 ML IVPB STA (19:39)
[2019-05-01 19:43] LABS: Eosinophils # 0.3 K/mcL (0.0-0.6); Eosinophils % 6.7 %; Hemoglobin 11.9 g/dL (11.5-15.4); Lymphocytes # 0.9 K/mcL (0.6-4.6); Lymphocytes % 23.3 %; Mean Corpuscular HGB Conc 31.3 g/dL (31.6-35.5); Mean Corpuscular Hemoglobin 30.7 pg (28.0-33.3); Mean Corpuscular Volume 97.9 fL (83.0-100.0); Mean Platelet Volume 11.1 fL (9.4-12.4); Monocytes # 0.5 K/mcL (0.0-1.3); Monocytes % 11.5 %; Neutrophils # 2.2 K/mcL (1.6-8.9); Platelet Count 137 K/mcL (140-400); Red Blood Count 3.88 M/mcL (3.82-4.97); Red Cell Distribution Width 14.3 % (11.5-14.5); Segmented Neutrophils % 57.5 %; White Blood Count 3.9 K/mcL (4.3-11.1)
[2019-05-01 20:02] LABS: BUN/Creatinine Ratio 26 (6-26); Blood Urea Nitrogen 24 mg/dL (8-23); Calcium 9.2 mg/dL (8.6-10.3); Carbon Dioxide 29 mEq/L (23-29); Chloride 105 mEq/L (98-107); Glucose 98 mg/dL (70-105); Osmolality,Calculated 288 (280-300); Sodium 137 mEq/L (136-145); eGFR For African Americans > 60 (> 60); eGFR For Non-African Americans > 60 (> 60)
[2019-05-02] MEDS ORDERED: Acetaminophen 325 MG TABLET PO PRN (01:14)
[2019-05-02] MEDS ORDERED: Naloxone 0.4 MG/ML INJ IVP PRN (01:14)
[2019-05-02] MEDS ORDERED: *HR* HYDROcodone/Acet 5/325 mg TABLET PO PRN (01:14)
[2019-05-02] MEDS ORDERED: D5% in Water 1,000 ML IVC PRN (01:21)
[2019-05-02] MEDS ORDERED: *HR* Dextrose 50 % in Water (Syg) 50 ML SYRINGE IVP PRN (01:21)
[2019-05-02] MEDS ORDERED: Dextrose Gel 15 GM/37.5 ML TUBE PO PRN ×2 (01:21)
[2019-05-02] MEDS: *HR* OxyCODONE Immed Rel 5 MG TABLET PO PRN ×2 (01:52→13:20)
[2019-05-02] MEDS: 0.9 % Sodium Chloride 1,000 ML IVC SCH ×2 (01:55→13:25)
[2019-05-02 04:42] LABS: Hematocrit 35.1 % (35.3-44.9); Hemoglobin 11.1 g/dL (11.5-15.4); Mean Corpuscular HGB Conc 31.6 g/dL (31.6-35.5); Mean Corpuscular Hemoglobin 30.8 pg (28.0-33.3); Mean Corpuscular Volume 97.5 fL (83.0-100.0); Mean Platelet Volume 10.8 fL (9.4-12.4); Platelet Count 134 K/mcL (140-400); White Blood Count 4.8 K/mcL (4.3-11.1)
[2019-05-02 05:02] LABS: BUN/Creatinine Ratio 24 (6-26); Blood Urea Nitrogen 23 mg/dL (8-23); Carbon Dioxide 27 mEq/L (23-29); Chloride 108 mEq/L (98-107); Glucose 94 mg/dL (70-105); Osmolality,Calculated 291 (280-300); Sodium 139 mEq/L (136-145); eGFR For African Americans > 60 (> 60); eGFR For Non-African Americans > 60 (> 60)
[2019-05-02] MEDS: *HR* Heparin 5,000 UNIT/ML VIAL SQ SCH ×2 (06:06→17:13)
[2019-05-02] MEDS: Fluconazole 100 MG TABLET PO SCH (08:55)
[2019-05-02] MEDS: Insulin LISPRO 300 UNITS/3 ML VIAL SQ SCH ×4 (09:21→21:10)
[2019-05-02] MEDS ORDERED: 0.9 % Sodium Chloride 1,000 ML ONE (13:25)
[2019-05-02] MEDS ORDERED: SUMAtriptan succinate 50 MG TABLET PO PRN (14:00)
[2019-05-02] MEDS: hydrOXYzine pamoate 25 MG CAPSULE PO PRN (17:13)
[2019-05-02] MEDS: Patient Taking Own Medication 1 EACH OP SCH (21:10)
[2019-05-02] MEDS: Ertapenem 1,000 MG in 0.9 % Sodium Chloride Mini Bag 100 ML IVPB SCH (21:18)
[2019-05-02] MEDS: Pregabalin 50 MG CAPSULE PO SCH (21:18)
[2019-05-02] MEDS: rOPINIRole 1 MG TABLET PO SCH (21:18)
[2019-05-03] MEDS: *HR* Heparin 5,000 UNIT/ML VIAL SQ SCH ×2 (06:02→17:26)
[2019-05-03] MEDS: Fluconazole 100 MG TABLET PO SCH (08:10)
[2019-05-03] MEDS: Pregabalin 50 MG CAPSULE PO SCH ×2 (08:10→20:06)
[2019-05-03] MEDS: Insulin LISPRO 300 UNITS/3 ML VIAL SQ SCH ×4 (08:12→20:08)
[2019-05-03] MEDS: *HR* OxyCODONE Immed Rel 5 MG TABLET PO PRN ×2 (08:17→17:30)
[2019-05-03] MEDS: Patient Taking Own Medication 1 EACH OP SCH ×2 (08:19→21:23)
[2019-05-03] MEDS: (Linaclotide [Linzess] 290 MCG) PO SCH (11:20)
[2019-05-03] MEDS: Cholecalciferol (D-3) 1,000 UNIT (25MCG) TABLET PO SCH (11:22)
[2019-05-03] MEDS: hydrOXYzine pamoate 25 MG CAPSULE PO PRN ×2 (11:28→20:06)
[2019-05-03] MEDS: rOPINIRole 1 MG TABLET PO SCH (20:06)
[2019-05-03] MEDS: Ertapenem 1,000 MG in 0.9 % Sodium Chloride Mini Bag 100 ML IVPB SCH (20:08)
[2019-05-04] MEDS: *HR* Heparin 5,000 UNIT/ML VIAL SQ SCH ×2 (05:25→17:36)
[2019-05-04 05:40] LABS: Immature Granulocytes % 1.8 % (0-4); Red Cell Distribution Width 14.6 % (11.5-14.5)
[2019-05-04 05:42] LABS: Basophils # 0.1 K/mcL (0.0-0.2); Basophils % 1.1 %; Eosinophils # 0.3 K/mcL (0.0-0.6); Eosinophils % 6.5 %; Hematocrit 38.8 % (35.3-44.9); Hemoglobin 12.2 g/dL (11.5-15.4); Immature Platelets 1.9 % (1.1-6.1); Lymphocytes % 22.6 %; Mean Corpuscular HGB Conc 31.4 g/dL (31.6-35.5); Mean Corpuscular Hemoglobin 31.3 pg (28.0-33.3); Mean Corpuscular Volume 99.5 fL (83.0-100.0); Monocytes # 0.6 K/mcL (0.0-1.3); Neutrophils # 2.4 K/mcL (1.6-8.9); White Blood Count 4.4 K/mcL (4.3-11.1)
[2019-05-04 05:49] LABS: BUN/Creatinine Ratio 28 (6-26); Blood Urea Nitrogen 29 mg/dL (8-23); Calcium 9.1 mg/dL (8.6-10.3); Carbon Dioxide 22 mEq/L (23-29); Chloride 108 mEq/L (98-107); Glucose 87 mg/dL (70-105); Osmolality,Calculated 283 (280-300); Potassium 4.2 mEq/L (3.5-5.1); Sodium 134 mEq/L (136-145); eGFR For African Americans > 60 (> 60); eGFR For Non-African Americans 53 (> 60)
[2019-05-04 06:08] LABS: Platelet Count 95 K/mcL (140-400)
[2019-05-04] MEDS: Pregabalin 50 MG CAPSULE PO SCH (08:50)
[2019-05-04] MEDS: Insulin LISPRO 300 UNITS/3 ML VIAL SQ SCH ×3 (08:51→16:21)
[2019-05-04] MEDS: Fluconazole 100 MG TABLET PO SCH (08:51)
[2019-05-04] MEDS: Patient Taking Own Medication 1 EACH OP SCH (09:15)
[2019-05-04] MEDS: (Linaclotide [Linzess] 290 MCG) PO SCH (11:03)
[2019-05-04] MEDS: Cholecalciferol (D-3) 1,000 UNIT (25MCG) TABLET PO SCH (11:10)
[2019-05-04 15:31] VITALS: BP 139/71
[2019-05-04] MEDS ORDERED: Fosfomycin Tromethamine 3 GM Packet PO ONE (16:30)
== END 2019-05-04 18:43 | disposition home health service (06) | DRG 690 ==
LOC: 3BNU 18:45 → EMEROOARM 18:45 → SUATTDRO 21:10 → 3BNU 21:40
PROVIDERS: ADMIT Family Medicine; ATTEND Internal Medicine

== ENCOUNTER 2020-08-24 18:07 | Inpatient (IN) ==
[2020-08-24] MEDS ORDERED: Isovue-370 500 ML BOTTLE IVP ONE (19:09)
[2020-08-24 19:21] LABS: Basophils # 0.1 K/mcL (0.0-0.2); Basophils % 0.8 %; Eosinophils # 0.5 K/mcL (0.0-0.6); Eosinophils % 5.9 %; Hematocrit 43.2 % (35.3-44.9); Hemoglobin 13.7 g/dL (11.5-15.4); Immature Granulocytes % 0.4 % (0-4); Lymphocytes # 1.3 K/mcL (0.6-4.6); Lymphocytes % 17.4 %; Mean Corpuscular HGB Conc 31.7 g/dL (31.6-35.5); Mean Corpuscular Hemoglobin 30.9 pg (28.0-33.3); Mean Corpuscular Volume 97.3 fL (83.0-100.0); Mean Platelet Volume 10.8 fL (9.4-12.4); Monocytes # 0.5 K/mcL (0.0-1.3); Monocytes % 7.1 %; Neutrophils # 5.2 K/mcL (1.6-8.9); Platelet Count 155 K/mcL (140-400); Red Blood Count 4.44 M/mcL (3.82-4.97); Segmented Neutrophils % 68.4 %; White Blood Count 7.6 K/mcL (4.3-11.1)
[2020-08-24 19:33] LABS: Bacteria,Urine Moderate per hpf (None-Few); Bilirubin,Urine Negative (Negative); Blood,Urine Large (Negative); Clarity,Urine Ex.Turbid (Clear); Color,Urine Yellow (Yellow); Glucose,Urine (UA) Normal (Normal); Ketones,Urine Negative (Negative); Leukocyte Esterase,Urine Large (Negative); Nitrite,Urine Positive (Negative); Protein,Urine 100 mg/dL (Neg-Trace); RBC,Urine TNTC per hpf (0-3); Specific Gravity,Urine 1.024 (1.010-1.025); Squamous Epithelial Cell,Urine Few per hpf (None-Few); Urobilinogen,Urine Normal (Normal); WBC,Urine TNTC per hpf (0-3)
[2020-08-24] MEDS ORDERED: Ertapenem 1,000 MG in 0.9 % Sodium Chloride Mini Bag 100 ML IVPB STA (19:46)
[2020-08-24 19:54] LABS: Alanine Aminotransferase 14 Units/L (7-52); Albumin 4.4 g/dL (3.5-5.7); Albumin/Globulin Ratio 1.2 (1.1-2.2); Alkaline Phosphatase 104 Units/L (34-104); Aspartate Amino Transferase 14 Units/L (13-39); BUN/Creatinine Ratio 27 (6-26); Bilirubin,Total 0.5 mg/dL (0.3-1.0); Blood Urea Nitrogen 29 mg/dL (8-23); Calcium 9.5 mg/dL (8.6-10.3); Carbon Dioxide 25 mEq/L (23-29); Chloride 110 mEq/L (98-107); Globulin 3.6 g/dL (2.4-3.5); Glucose 87 mg/dL (70-105); Osmolality,Calculated 297 (280-300); Potassium 3.8 mEq/L (3.5-5.1); Sodium 141 mEq/L (136-145); eGFR For African Americans > 60 (> 60); eGFR For Non-African Americans 53 (> 60)
[2020-08-24] MEDS ORDERED: Ondansetron 4 MG/2 ML VIAL IVP PRN (22:01)
[2020-08-24] MEDS ORDERED: Naloxone 0.4 MG/ML INJ IVP PRN (22:01)
[2020-08-24] MEDS ORDERED: 0.9 % Sodium Chloride 1,000 ML IVC SCH (22:15)
[2020-08-24] MEDS ORDERED: Nitroglycerin 0.4 MG TAB.SUBL SL PRN (23:25)
[2020-08-24] MEDS ORDERED: tiZANidine 4 MG TABLET PO PRN (23:25)
[2020-08-25] MEDS: Nystatin POWDER 30 GM BOTTLE TP SCH ×3 (00:17→21:02)
[2020-08-25] MEDS: *HR* OxyCODONE/APAP 10/325 TABLET PO PRN ×3 (00:17→21:01)
[2020-08-25] MEDS ORDERED: D5% in Water 1,000 ML IVC PRN (00:33)
[2020-08-25] MEDS ORDERED: Dextrose Gel 15 GM/37.5 ML TUBE PO PRN ×2 (00:33)
[2020-08-25] MEDS ORDERED: *HR* Dextrose 50 % in Water (Vial) 50 ML VIAL IVP PRN (00:33)
[2020-08-25] MEDS: Insulin LISPRO 300 UNITS/3 ML VIAL SUBQ SCH ×5 (00:48→20:20)
[2020-08-25] MEDS: hydrOXYzine pamoate 25 MG CAPSULE PO PRN ×2 (03:43→21:01)
[2020-08-25] MEDS: *HR* Heparin 5,000 UNIT/ML VIAL SQ SCH ×3 (03:46→20:29)
[2020-08-25 05:25] LABS: Hematocrit 40.1 % (35.3-44.9); Hemoglobin 12.6 g/dL (11.5-15.4); Mean Corpuscular HGB Conc 31.4 g/dL (31.6-35.5); Mean Corpuscular Hemoglobin 30.7 pg (28.0-33.3); Mean Corpuscular Volume 97.8 fL (83.0-100.0); Mean Platelet Volume 11.2 fL (9.4-12.4); Platelet Count 132 K/mcL (140-400); White Blood Count 6.6 K/mcL (4.3-11.1)
[2020-08-25 05:37] LABS: Estimated Average Glucose 123 mg/dl; Hemoglobin A1C 5.9 %
[2020-08-25 05:42] LABS: Chol/HDL Ratio 5.1 (0-4.9)
[2020-08-25 05:43] LABS: BUN/Creatinine Ratio 28 (6-26); Blood Urea Nitrogen 28 mg/dL (8-23); C-Reactive Protein < 5 mg/L (Less than 10); Calcium 8.6 mg/dL (8.6-10.3); Carbon Dioxide 24 mEq/L (23-29); Chloride 108 mEq/L (98-107); Glucose 162 mg/dL (70-105); Osmolality,Calculated 297 (280-300); Sodium 139 mEq/L (136-145); eGFR For African Americans > 60 (> 60); eGFR For Non-African Americans 56 (> 60)
[2020-08-25 06:03] LABS: Thyroid Stimulating Hormone 3.795 mcIU/mL (0.340-5.600)
[2020-08-25] MEDS: Celecoxib 100 MG CAPSULE PO SCH ×2 (09:36→20:35)
[2020-08-25] MEDS: Pregabalin 50 MG CAPSULE PO SCH ×2 (09:36→20:35)
[2020-08-25] MEDS: Topiramate 100 MG TABLET PO SCH ×2 (09:38→20:36)
[2020-08-25] MEDS: (Methenamine Hippurate [Hiprex] 1 GM) PO SCH ×4 (09:39→20:29)
[2020-08-25] MEDS: Potassium Chloride Elixir 20 MEQ/15 ML UDC PO SCH ×2 (09:40→20:34)
[2020-08-25] MEDS: Ketoconazole Shampoo 120 ML BOTTLE TP SCH (09:43)
[2020-08-25] MEDS: (Linaclotide [Linzess] 290 MCG) PO SCH (11:24)
[2020-08-25] MEDS ORDERED: Cholecalciferol (D-3) 1,000 UNIT (25MCG) TABLET PO SCH (12:00)
[2020-08-25] MEDS ORDERED: allopurinoL 300 MG TABLET PO SCH (12:00)
[2020-08-25] MEDS: lisinopriL 5 MG TABLET PO SCH (13:26)
[2020-08-25] MEDS ORDERED: Ertapenem 1,000 MG in 0.9 % Sodium Chloride Mini Bag 100 ML IVPB SCH (20:00)
[2020-08-25] MEDS: *HR* SitaGLIPtin 100 MG TABLET PO SCH ×2 (20:20→21:01)
[2020-08-25] MEDS ORDERED: *HR* SitaGLIPtin 100 MG TABLET PO SCH (21:00)
[2020-08-25] MEDS ORDERED: rOPINIRole 1 MG TABLET PO SCH (21:00)
[2020-08-25] MEDS ORDERED: (Mirabegron [Myrbetriq] 50 MG) PO SCH (21:00)
[2020-08-26] MEDS: *HR* Heparin 5,000 UNIT/ML VIAL SQ SCH (05:22)
[2020-08-26] MEDS: Celecoxib 100 MG CAPSULE PO SCH (07:45)
[2020-08-26] MEDS: Potassium Chloride Elixir 20 MEQ/15 ML UDC PO SCH (07:45)
[2020-08-26] MEDS: Topiramate 100 MG TABLET PO SCH (07:46)
[2020-08-26] MEDS: lisinopriL 5 MG TABLET PO SCH (07:46)
[2020-08-26] MEDS: Pregabalin 50 MG CAPSULE PO SCH (07:47)
[2020-08-26] MEDS: Nystatin POWDER 30 GM BOTTLE TP SCH (07:47)
[2020-08-26] MEDS: Ketoconazole Shampoo 120 ML BOTTLE TP SCH (07:48)
[2020-08-26] MEDS: (Methenamine Hippurate [Hiprex] 1 GM) PO SCH ×2 (07:48→11:30)
[2020-08-26] MEDS: Insulin LISPRO 300 UNITS/3 ML VIAL SUBQ SCH ×2 (08:06→11:29)
[2020-08-26] MEDS: hydrOXYzine pamoate 25 MG CAPSULE PO PRN (09:29)
[2020-08-26] MEDS: *HR* OxyCODONE/APAP 10/325 TABLET PO PRN (09:29)
[2020-08-26 11:30] VITALS: BP 116/80
[2020-08-26] MEDS: (Linaclotide [Linzess] 290 MCG) PO SCH (11:30)
== END 2020-08-26 16:33 | disposition home health service (06) | DRG 690 ==
LOC: EMEROOARM 18:07 → 3BNU 18:07 → SUATTDRO 21:45 → 3BNU 21:56
PROVIDERS: ADMIT Internal Medicine; ATTEND Internal Medicine